=== PATIENT | female | born 1950 | race Caucasian/White ===

== ENCOUNTER 2022-12-08 09:01 | Emergency (ER) | payer OTHER ==
[~2022-12-08] VITALS: Ht 157.5 cm; Wt 76.9 kg
[2022-12-08] MEDS ORDERED: MORPHINE SULFATE 4 MG/ML SYR/VIAL IV ONE (09:30)
[2022-12-08] MEDS ORDERED: SODIUM CHLORIDE 0.9% 1,000 ML IVB ONE (09:30)
[2022-12-08] MEDS ORDERED: ONDANSETRON HCL 4 MG/2 ML VIAL IV ONE (09:30)
[2022-12-08 09:51] LABS: Basophils # (auto) 0 10 ^3/uL (0-0.2); Basophils % (auto) 0.5 % (0.0-2.0); Eosinophils # (auto) 0.1 10 ^3/uL (0-0.8); Eosinophils % (auto) 0.8 % (0.0-7.0); Hematocrit 34.1 % (36.0-46.0); Hemoglobin 11.5 g/dL (12.2-16.2); Lymphocytes # (auto) 1.3 10 ^3/uL (0.4-5.4); Lymphocytes % (auto) 17.1 % (10.0-50.0); Mean Corpuscular Hgb Conc. 33.6 g/dL (32.0-36.0); Mean Corpuscular Volume 89.2 fL (80.0-100.0); Monocytes # (auto) 0.5 10 ^3/uL (0-1.3); Monocytes % (auto) 6.3 % (0.0-12.0); Neutrophils # (auto) 5.9 10 ^3/uL (1.6-8.6); Neutrophils % (auto) 75.3 % (37.0-80.0); Red Blood Cells 3.82 10^6/uL (4.0-5.20); Red Cell Distribution Width 12.9 % (11.8-14.3); White Blood Cell 7.9 10^3/uL (4.4-10.8)
[2022-12-08 10:05] LABS: Albumin 3.8 g/dL (3.4-5.0); Potassium 4.7 mmol/L (3.5-5.1)
[2022-12-08 10:06] LABS: Urine Bacteria NONE SEEN /hpf (None Seen); Urine Blood Negative /uL (Negative); Urine Specific Gravity 1.012 (1.001-1.035); Urine WBC <1 /hpf (0 - 5)
[2022-12-08 10:09] LABS: BUN/Creatinine Ratio 27.6 (10.0-20.0); Bilirubin, Total 0.5 mg/dL (0.2-1.0); Calcium 8.5 mg/dL (8.5-10.1); Total Protein 6.7 g/dL (6.4-8.2)
[2022-12-08] MEDS ORDERED: TRAM50TA2 PO (11:43)
[2022-12-08 11:50] VITALS: BP 182/75
== END 2022-12-08 12:09 | disposition home or self-care (01) ==
LOC: EDBD 09:01 → EDUNIT# 09:01 → ER 09:01
DX: N20.0 Calculus of kidney (principal); E11.9 Type 2 diabetes mellitus without complications; E78.5 Hyperlipidemia, unspecified; I10 Essential (primary) hypertension; Z90.710 Acquired absence of both cervix and uterus; Z88.1 Allergy status to other antibiotic agents; Z88.2 Allergy status to sulfonamides
CPT/HCPCS: 36415; 74176; 80053; 81001; 83690; 85025; 96361; 96374; 96375; 99285; J2270; J2405; J7030

== ENCOUNTER 2023-05-10 17:29 | Emergency (ER) | payer OTHER ==
[~2023-05-10] VITALS: Ht 154.9 cm; Wt 64.0 kg
[~2023-05-10 17:29] MED LIST: TRAM50TA2 PO
[2023-05-10 18:34] LABS: Basophils # (auto) 0.1 10 ^3/uL (0-0.2); Basophils % (auto) 0.9 % (0.0-2.0); Eosinophils # (auto) 0.2 10 ^3/uL (0-0.8); Eosinophils % (auto) 2.2 % (0.0-7.0); Hematocrit 33.4 % (36.0-46.0); Hemoglobin 11.2 g/dL (12.2-16.2); Lymphocytes # (auto) 1.6 10 ^3/uL (0.4-5.4); Lymphocytes % (auto) 18.4 % (10.0-50.0); Mean Corpuscular Hemoglobin 30.3 pg (28.0-32.0); Mean Corpuscular Hgb Conc. 33.4 g/dL (32.0-36.0); Mean Corpuscular Volume 90.8 fL (80.0-100.0); Monocytes # (auto) 0.7 10 ^3/uL (0-1.3); Neutrophils # (auto) 6.2 10 ^3/uL (1.6-8.6); Neutrophils % (auto) 70.5 % (37.0-80.0); Red Blood Cells 3.68 10^6/uL (4.0-5.20); Red Cell Distribution Width 12.8 % (11.8-14.3); White Blood Cell 8.8 10^3/uL (4.4-10.8)
[2023-05-10 18:39] LABS: Alanine Aminotransferase 25 U/L (7-40); Albumin 4.1 g/dL (3.2-4.8); Alkaline Phosphatase 167 U/L (46-116); Anion Gap 9 (5-15); Aspartate Aminotransferase 17 U/L (13-40); BUN/Creatinine Ratio 22.9 (10.0-20.0); Bilirubin, Total 0.4 mg/dL (0.2-1.0); Blood Urea Nitrogen 43 mg/dL (9-23); Calcium 9.1 mg/dL (8.5-10.1); Carbon Dioxide 26 mmol/L (20-30); Chloride 106 mmol/L (98-107); Glucose 286 mg/dL (74-106); Potassium 4.8 mmol/L (3.5-5.1); Sodium 141 mmol/L (136-145); Total Protein 6.5 g/dL (5.7-8.2)
[2023-05-10] MEDS ORDERED: LACT10SO3 PO (21:29)
[2023-05-10 21:47] VITALS: PULSE 73; RESP 18; TEMP 97.7; O2SAT 97
[2023-05-10 21:48] VITALS: BP 215/95
[2023-05-10] MEDS ORDERED: ATENOLOL 25 MG TAB PO ONE (22:15)
== END 2023-05-10 22:16 | disposition home or self-care (01) ==
LOC: ER 17:29
DX: M19.071 Primary osteoarthritis, right ankle and foot (principal); N20.0 Calculus of kidney; K59.00 Constipation, unspecified; I10 Essential (primary) hypertension; E11.9 Type 2 diabetes mellitus without complications; E78.5 Hyperlipidemia, unspecified; Z90.710 Acquired absence of both cervix and uterus; Z90.89 Acquired absence of other organs; Z79.899 Other long term (current) drug therapy; Z88.1 Allergy status to other antibiotic agents; Z88.2 Allergy status to sulfonamides; Z88.8 Allergy status to other drugs, medicaments and biological substances
CPT/HCPCS: 36415; 73630; 74176; 80053; 85025; 93005

== ENCOUNTER 2023-06-23 22:39 | Emergency (ER) | payer OTHER ==
[~2023-06-23] VITALS: Ht 154.9 cm; Wt 61.3 kg
[~2023-06-23 22:39] MED LIST changes: +LACT10SO3 PO
[2023-06-23] MEDS ORDERED: cloNIDine HCL 0.1 MG TAB PO ONE (23:15)
[2023-06-23] MEDS ORDERED: HYDROcodone-ACET 5/325MG TAB PO ONE (23:15)
[2023-06-23] MEDS ORDERED: ONDANSETRON ODT 4 MG TAB PO ONE (23:15)
[2023-06-23 23:27] LABS: Basophils # (auto) 0 10 ^3/uL (0-0.2); Basophils % (auto) 0.3 % (0.0-2.0); Eosinophils # (auto) 0 10 ^3/uL (0-0.8); Eosinophils % (auto) 0.2 % (0.0-7.0); Hematocrit 36.1 % (36.0-46.0); Hemoglobin 12.1 g/dL (12.2-16.2); Lymphocytes # (auto) 1.4 10 ^3/uL (0.4-5.4); Lymphocytes % (auto) 14.5 % (10.0-50.0); Mean Corpuscular Hemoglobin 30.3 pg (28.0-32.0); Mean Corpuscular Hgb Conc. 33.4 g/dL (32.0-36.0); Mean Corpuscular Volume 90.7 fL (80.0-100.0); Monocytes # (auto) 0.9 10 ^3/uL (0-1.3); Monocytes % (auto) 9.8 % (0.0-12.0); Neutrophils # (auto) 7.1 10 ^3/uL (1.6-8.6); Neutrophils % (auto) 75.2 % (37.0-80.0); Nucleated Red Blood Cells % 0.1 %; Red Blood Cells 3.99 10^6/uL (4.0-5.20); Red Cell Distribution Width 12.9 % (11.8-14.3); White Blood Cell 9.4 10^3/uL (4.4-10.8)
[2023-06-23 23:42] LABS: Alanine Aminotransferase 18 U/L (7-40); Albumin 4.4 g/dL (3.2-4.8); Alkaline Phosphatase 191 U/L (46-116); Anion Gap 10 (5-15); Aspartate Aminotransferase 20 U/L (13-40); BUN/Creatinine Ratio 19.9 (10.0-20.0); Bilirubin, Total 0.5 mg/dL (0.2-1.0); Blood Urea Nitrogen 31 mg/dL (9-23); Calcium 9.2 mg/dL (8.7-10.4); Carbon Dioxide 25 mmol/L (20-30); Chloride 101 mmol/L (98-107); Glucose 286 mg/dL (74-106); Potassium 4.1 mmol/L (3.5-5.1); Sodium 136 mmol/L (136-145)
[2023-06-24] MEDS ORDERED: INDOMETHACIN 25 MG CAP PO ONE (07:45)
[2023-06-24 08:44] VITALS: PULSE 71; RESP 16; O2SAT 95
[2023-06-24] MEDS ORDERED: HYDROcodone-ACET 10/325MG TAB PO ONE (09:00)
[2023-06-24] MEDS ORDERED: ONDANSETRON ODT 4 MG TAB PO ONE (09:15)
[2023-06-24] MEDS ORDERED: InsuLIN REG 1unit/0.01ml Soln (100units/ml) SC ONE ×2 (10:45→15:00)
[2023-06-24 18:50] VITALS: BP 113/56; PULSE 70; RESP 22; TEMP 98; O2SAT 94
== END 2023-06-24 20:00 | disposition home or self-care (01) ==
LOC: ER 22:39 → EDBD 22:39 → ER 06-24 20:00
DX: M10.9 Gout, unspecified (principal); I10 Essential (primary) hypertension; E78.5 Hyperlipidemia, unspecified; E11.9 Type 2 diabetes mellitus without complications; Z90.710 Acquired absence of both cervix and uterus; Z90.89 Acquired absence of other organs; Z79.899 Other long term (current) drug therapy; Z88.1 Allergy status to other antibiotic agents; Z88.2 Allergy status to sulfonamides; Z88.8 Allergy status to other drugs, medicaments and biological substances
CPT/HCPCS: 36415; 73562; 80053; 82962; 84550; 85025; 93005; 96372; 99285; J1815; Q0162

== ENCOUNTER 2024-06-02 11:07 | Inpatient (IN) | payer OTHER ==
[~2024-06-02] VITALS: Ht 152.4 cm; Wt 52.7 kg
[2024-06-02 11:23] VITALS: PULSE 99; RESP 18; O2SAT 95
--- NOTE | 2024-06-02 11:26 | ED.PDOC ---
GI ASSESSMENT HPI Comments 73y F who presents to the ED for chief complaint of abdominal pain. Pt states he has been having diarrhea for the past 2 weeks. Pt states she was seen at [facility], [place] this past , 3 days prior and states she was given anti-diarrhea meds and discharged. Pt states she is continuing diarrhea and called EMS. Pt states she is also having abdominal pain, with no associated exacerbating or relieving factors. Pt otherwise denies nausea, vomiting, fever, cough, chills, dysuria, chest pain or shortness of breath. Pt has noted stable vitals in the ED. Pt otherwise denies any other symptoms at this time. Chief Complaint: Abdominal Pain Time Seen by MD: 11:22 Primary Care Provider: DOES NOT KNOW Reviewed Notes: Medications, Allergies Allergies: Coded Allergies: Azithromycin (Verified Allergy, Unknown, 12/08/22) Lisinopril (Verified Allergy, Unknown, 12/08/22) Sulfa Antibiotics (Verified Allergy, Unknown, 12/08/22) Home Meds Active Scripts Lactulose (Lactulose) 10 Gm/15 Ml Sylwia, 10 GM PO BID PRN, #100 ML Prov:ALFREDO LASSITER 05/10/23 Tramadol Hcl (Tramadol Hcl) 50 Mg Tab, 50 MG PO Q6HP PRN for 5 Days, #20 TAB Prov:ANGELO VILLATORO MD 12/08/22 Information Source: Patient Mode of Arrival: EMS Brought in by: EMS Timing: Days, Weeks Duration: Since onset Prehospital treatment: None Quality: Aching Vomitus: None Stool: Moderate Severity: Moderate Recent: None Recent Hx of: None Pain Location: Diffuse Modifying Factors: Nothing Associated sign and symptoms: Diarrhea, Abdominal Pain Past Medical History PAST MEDICAL HISTORY: Arthritis, DM, Gout, High Lipids, HTN, Kidney Stones Surgical History: Hernia Repair, Hysterectomy, Tonsillectomy Surgical History (Other): R knee, L oophrectomy 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 Hx Family History Family History: Family hx of DM, Family hx of Cancer, Family hx of heart myriam Social History Smoker: Non-Smoker Alcohol: Denies ETOH Use Drugs: Denies Drug Use Lives In: Home Constitutional: denies: chills, diaphoresis, fatigue, fever, malaise, sweats, weakness, others EENTM: denies: blurred vision, double vision, ear bleeding, ear discharge, ear drainage, ear pain, ear ringing, eye pain, eye redness, hearing loss, mouth pain, mouth swelling, nasal discharge, nose bleeding, nose congestion, nose pa in, photophobia, tearing, throat pain, throat swelling, voice changes, others Respiratory: denies: cough, hemoptysis, orthopnea, SOB at rest, shortness of breath, SOB with excertion, stridor, wheezing, others Cardiovascular: denies: chest pain, dizzy spells, diaphoresis, Dyspnea on exertion, edema, irregular heart beat, left arm pain, lightheadedness, palpitations, PND, syncope, others Gastrointestinal: reports: abdominal pain, diarrhea; denies: abdomen distended, blood streaked bowels, constipated, dysphagia, difficulty swallowing, hematemesis, melena, nausea, poor appetite, poor fluid intake, rectal bleeding, rectal pain, vomiting, others Genitourinary: denies: abnormal vagina bleeding, burning, dyspareunia, dysuria, flank pain, frequency, hematuria, incontinence, pain, , vagina discharge, urgency, others Neurological: denies: dizziness, fainting, headache, left sided numbness, left sided weakness, numbness, paresthesia, pre-existing deficit, right sided numbness, right sided weakness, seizure, speech problems, tingling, tremors, weakness, others Musculoskeletal: denies: back pain, gout, joint pain, joint swelling, muscle pain, muscle stiffness, neck pain, others Integumetry: denies: bruises, change in color, change in hair/nails, dryness, laceration, lesions, lumps, rash, wounds, others Allergic/Immunocompromised: denies: Difficulty Healing, Frequent Infections, Hives, Itching, others Hematologic/Lymphatic: denies: anemia, blood clots, easy bleeding, easy bruising, swollen glands, others Endocrine: denies: excessive hunger, excessive sweating, excessive thirst, excessive urination, flushing, intolerance to cold, intolerance to heat, unexplained weight gain, unexplained weight loss, others Psychiatric: denies: anxiety, bipolar disorder, depression, hopeless, panic disorder, schizophrenia, sleepless, suicidal, others All Other Systems: Reviewed and Negative Physical Exam General Appearance: Mild Distress HEENT: Normal ENT Inspection, Pharynx Normal, TMs Normal Neck: Full Range of Motion, Non-Tender, Normal, Normal Inspection Respiratory: Chest Non-Tender, Lungs Clear, No Accessory Muscle Use, No Respiratory Distress, Normal Breath Sounds Cardiovascular: No Edema, No JVD, No Murmur, No Gallop, Normal Peripheral P ulses, Regular Rate/Rhythm Breast Exam: Deferred Gastrointestinal: No Organomegaly, Non Tender, No Pulsatile Mass, Normal Bowel Sounds, Soft Genitalia: Deferred Pelvic: Deferred Rectal: Deferred Extremities: No calf tenderness, Normal capillary refill, Normal inspection, Normal range of motion, Non-tender, No pedal edema Musculoskeletal : Apperance: Normal Neurologic: Alert, web methods developer II-XII nml as Tested, No Motor Deficits, Normal Affect, Normal Mood, No Sensory Deficits Cerebellar Function: Normal Reflexes: Normal Skin: Dry, Normal Color, Warm Lymphatic: No Adenopathy Was a procedure done? Was a procedure done?: No GI differential Dx Differential Diagnosis: Diverticular disease, Gastritis/PUD, Gastroenteritis, GI hemorrhage, Inflammatory BD, Pancreatitis, Trauma intraabdominal, Dehydration, Electrolyte Imbalance, Food Poisoning, Bacterial, Viral X-Ray, Labs, Meds, VS Vital Signs Date Time Temp Pulse Resp B/P (MAP) Pulse Ox O2 Delivery O2 Flow Rate FiO2 06/02/24 11:36 99 18 102/62 06/02/24 11:23 98.2 99 18 102/62 (75) 95 98.2 06/02/24 11:23 99 18 95 Room Air* 0 21 06/02/24 11:12 98.0 91 16 123/80 (94) 97 Lab Test 06/02/24 11:46 06/02/24 11:40 Range/Units White Blood Count 8.2 4.4-10.8 10^3/uL Red Blood Count 4.13 4.0-5.20 10^6/uL Hemoglobin 12.2 12.2-16.2 g/dL Hematocrit 36.8 36.0-46.0 % Mean Corpuscular Volume 89.1 80.0-100.0 fL Mean Corpuscular Hemoglobin 29.6 28.0-32.0 pg Mean Corpuscular Hemoglobin Concent 33.2 32.0-36.0 g/dL Red Cell Distribution Width 14.5 H 11.8-14.3 % Platelet Count 402 140-450 10^3/uL Mean Platelet Volume 7.6 6.9-10.8 fL Neutrophils (%) (Auto) 66.8 37.0-80.0 % Lymphocytes (%) (Auto) 20.7 10.0-50.0 % Monocytes (%) (Auto) 8.0 0.0-12.0 % Eosinophils (%) (Auto) 3.4 0.0-7.0 % Basophils (%) (Auto) 1.1 0.0-2.0 % Neutrophils # (Auto) 5.5 1.6-8.6 10 ^3/uL Lymphocytes # (Auto) 1.7 0.4-5.4 10 ^3/uL Monocytes # (Auto) 0.7 0-1.3 10 ^3/uL Eosinophils # (Auto) 0.3 0-0.8 10 ^3/uL Basophils # (Auto) 0.1 0-0.2 10 ^3/uL Nucleated Red Blood Cells 0.1 % Sodium Level 138 136-145 mmol/L Potassium Level 4.8 3.5-5.1 mmol/L Chloride Level 105 98-107 mmol/L Carbon Dioxide Level 24 20-31 mmol/L Anion Gap 9 5-15 Blood Urea Nitrogen 28 H 9-23 mg/dL Creatinine 1.58 H 0.550-1.02 mg/dL Glomerular Filtration Rate Calc 34 >90 mL/min BUN/Creatinine Ratio 17.7 10.0-20.0 Serum Glucose 172 H 74-106 mg/dL Calcium Level 11.3 H 8.7-10.4 mg/dL Total Bilirubin 0.5 0.2-1.0 mg/dL Aspartate Amino Transferase (AST) 17 13-40 U/L Alanine Aminotransferase (ALT) 11 7-40 U/L Alkaline Phosphatase 118 H 46-116 U/L Total Protein 7.2 5.7-8.2 g/dL Albumin 4.4 3.2-4.8 g/dL Urine Color Yellow Yellow Urine Clarity Turbid H Clear Urine pH 6.5 5.0-9.0 Urine Specific Theodore 1.014 1.001-1.035 Urine Protein 1+ H Negative Urine Ketones Negative Negative Urine Blood Negative Negative /uL Urine Nitrite Negative Negative Urine Bilirubin Negative Negative Urine Urobilinogen Normal Negative mg/dL Urine Leukocyte Esterase 1+ Negative /uL Urine RBC 2 0 - 4 /hpf Urine WBC 9 0 - 5 /hpf Urine Squamous Epithelial Cells Few <5 /hpf Urine Bacteria Few H None Seen /hpf Urine Hyaline Casts Few 0 - 2 /lpf Urine Mucus Few None Seen Urine Glucose Normal Normal mg/dL Current Medications Medications (Trade) Dose Ordered Sig/Jacquelyn Route Start Time Stop Time Status Last Admin Morphine Sulfate 2 mg ONCE ONCE IV 06/02/24 11:15 06/02/24 11:16 DC 06/02/24 11:36 Ondansetron HCl (Zofran) 4 mg ONCE ONCE IV 06/02/24 11:15 06/02/24 11:16 DC 06/02/24 11:36 PROCEDURE(s): ABPL - CT AB PEL WO CON-NO ORAL OR IV IMPRESSION: 1. Acute colitis of the sigmoid colon. 2. Nonobstructing left nephrolithiasis. The patient was being started on Flagyl IV piggyback The patient was given morphine 2 mg IV push The patient was given Zofran 4 mg IV push The urine test is positive for UTI The CBC and chemistry panel are within normal limits except for a BUN of 28 and a creatinine of 1.58 The patient is being admitted to the hospitalist Images Reviewed?: Images reviewed and evaluated by me Time of 1ST Reevaluation: 12:00 Reevaluation 1ST: Unchanged Patient Education/Counseling: Diagnosis, Treatment, Prognosis Family Education/Counseling: No Family Present Departure 1 Departure Time of Disposition: 13:08 Impression: Primary Impression: Diarrhea Qualified Codes: R19.7 - Diarrhea, unspecified Additional Impressions: Intractable abdominal pain Colitis Disposition: ADMITTED INPATIENT Admit to: Med Surg Condition: Fair Critical Care Note Critical Care Time?: No Stability Stability form required: Yes Unstable for transfer: ED Physician Assesment (Clinical assesment) Heart Score Heart Score: Heart Score Response (Comments) Value History N/A 0 EKG N/A 0 Age N/A 0 Risk Factors N/A 0 Troponin N/A 0 Total 0 I personally scribed for ANGELO VILLATORO MD ([email or web address]) on 06/02/24 at 11:26. Electronically submitted by Nevin Rodriguez ([email or web address]). I personally scribed for ANGELO VILLATORO MD ([email or web address]) on 06/02/24 at 12:47. Electronically submitted by Nevin Rodriguez ([email or web address]). ANGELO VILLATORO MD Jun 02, 2024 11:26
[2024-06-02] MEDS: ONDANSETRON HCL 4 MG/2 ML VIAL IV ONE (11:36)
[2024-06-02] MEDS: MORPHINE SULFATE INJ 2 MG/ml SYRG IV ONE (11:36)
[2024-06-02 11:55] LABS: Basophils # (auto) 0.1 10 ^3/uL (0-0.2); Basophils % (auto) 1.1 % (0.0-2.0); Eosinophils # (auto) 0.3 10 ^3/uL (0-0.8); Eosinophils % (auto) 3.4 % (0.0-7.0); Hematocrit 36.8 % (36.0-46.0); Hemoglobin 12.2 g/dL (12.2-16.2); Lymphocytes # (auto) 1.7 10 ^3/uL (0.4-5.4); Lymphocytes % (auto) 20.7 % (10.0-50.0); Mean Corpuscular Hemoglobin 29.6 pg (28.0-32.0); Mean Corpuscular Hgb Conc. 33.2 g/dL (32.0-36.0); Mean Corpuscular Volume 89.1 fL (80.0-100.0); Monocytes # (auto) 0.7 10 ^3/uL (0-1.3); Neutrophils # (auto) 5.5 10 ^3/uL (1.6-8.6); Neutrophils % (auto) 66.8 % (37.0-80.0); Nucleated Red Blood Cells % 0.1 %; Platelet Count (auto) 402 10^3/uL (140-450); Red Blood Cells 4.13 10^6/uL (4.0-5.20); Red Cell Distribution Width 14.5 % (11.8-14.3); White Blood Cell 8.2 10^3/uL (4.4-10.8)
[2024-06-02 12:07] LABS: Urine Bacteria FEW /hpf (None Seen); Urine Blood Negative /uL (Negative); Urine Clarity Turbid (Clear); Urine Color Yellow (Yellow); Urine Hyaline Cast FEW /lpf (0 - 2); Urine Mucus FEW (None Seen); Urine Protein, UAD 1+ (Negative); Urine Specific Gravity 1.014 (1.001-1.035); Urine Urobilinogen Normal (Negative); Urine WBC 9 /hpf (0 - 5); Urine pH 6.5 (5.0-9.0)
[2024-06-02 12:26] LABS: Alanine Aminotransferase 11 U/L (7-40); Albumin 4.4 g/dL (3.2-4.8); Alkaline Phosphatase 118 U/L (46-116); Anion Gap 9 (5-15); Aspartate Aminotransferase 17 U/L (13-40); BUN/Creatinine Ratio 17.7 (10.0-20.0); Bilirubin, Total 0.5 mg/dL (0.2-1.0); Blood Urea Nitrogen 28 mg/dL (9-23); Calcium 11.3 mg/dL (8.7-10.4); Carbon Dioxide 24 mmol/L (20-31); Chloride 105 mmol/L (98-107); Glucose 172 mg/dL (74-106); Potassium 4.8 mmol/L (3.5-5.1); Sodium 138 mmol/L (136-145); Total Protein 7.2 g/dL (5.7-8.2)
--- NOTE | 2024-06-02 12:43 | DVH ---
Exam: CT CT AB PEL WO CON-NO ORAL OR IV History: Pain Comparison Study: CT scan of the abdomen pelvis performed on 05/10/2023. TECHNIQUE: Multidetector CT of the abdomen and pelvis was performed from lung bases to ischial tubero sities. Imaging was performed without IV contrast using axial images. Coronal and sagittal reformats were obtained from the axial data set by the technologist. Radiation Dose Information: CT Dose: CTDI volume is 8.32 mGy. Dose-length product is 415.14 mGy*cm FINDINGS: Evaluation of solid organs is limited due to lack of intravenous contrast use. Findings: The lower portion of the abdomen / pelvis is excluded from the [id number] on the axial images. Lung Bases: Bibasilar atelectasis. No acute or significant lung base finding. Normal heart size. No pleural or pericardial effusion. Liver: The liver is normal in size. No focal lesions. Gallbladder and Biliary Tree: Gallbladder is unremarkable. No biliary ductal dilatation. Spleen: Unremarkable Pancreas: The pancreas is grossly normal in appearance. Adrenal Glands: Unremarkable Kidneys: Punctate nonobstructing left nephrolithiasis. Bilateral renal cysts. No hydronephrosis. GI Tract: Small hiatal hernia. The small bowel is normal in caliber. There is wall thickening of the descending and sigmoid colon liquid stool, suspicious for colitis. No evidence of acute appendicitis. Peritoneal cavity: No pneumoperitoneum. No ascites. Lymphadenopathy: No mesenteric, retroperitoneal or periportal lymphadenopathy. Abdominal Wall and Mesentery: Unremarkable. Vasculature: The visualized abdominal aorta is normal in size and caliber. Evaluation of abdominal a nd pelvic vessels is limited due to lack of intravenous contrast. There are atherosclerotic calcifica tions in the aorta. Pelvic Organs: Multiple calcified masses in the uterus consistent with fibroids. Urinary Bladder: Grossly unremarkable for degree of distention. Musculoskeletal: No aggressive focal bony lesions, acute fractures or dislocation. S shaped scoliosis . Bilateral hip osteoarthritis. Soft tissues: Unremarkable IMPRESSION: 1. Acute colitis of the sigmoid colon. 2. Nonobstructing left nephrolithiasis. Radiation optimization: All CT scans at this facility use at least one of these dose optimization deepak hniques: automated exposure control mA and/or kV adjustment per patient size (includes targeted exam s where dose is matched to clinical indication) or iterative reconstruction.
[2024-06-02] MEDS: metroNIDAZOLE 500MG/100ML 100 ML IV ONE (13:25)
[2024-06-02 13:45] VITALS: PULSE 98; RESP 20; O2SAT 98
[2024-06-02] MEDS ORDERED: DEXTROSE (50%) 50ML SYRG IV PRN ×2 (18:00→18:15)
[2024-06-02] MEDS ORDERED: VALS1TAB59 PO (18:05)
[2024-06-02] MEDS ORDERED: GABA-1250 PO (18:05)
[2024-06-02] MEDS ORDERED: SIMV20TA20 PO (18:05)
[2024-06-02] MEDS ORDERED: hydrALAZINE HCL 20 MG/ML VL IV PRN (18:15)
[2024-06-02 18:16] LABS: Triglycerides 230 mg/dL (< 150)
[2024-06-02 18:17] LABS: LDL Cholesterol 129 mg/dL (< 100)
[2024-06-02 18:18] LABS: Cholesterol 219 mg/dL (< 200); HDL Cholesterol 48 mg/dL (40-59)
--- NOTE | 2024-06-02 18:21 | DVHHP2 ---
History of Present Illness Reason for Visit: Abdominal pain History of Present Illness This 73-year-old female presents in the ED with a chief complaint of abdominal pain. The patient reports abdominal pain associated with diarrhea for the past two weeks. The patient states she was seen [facility] ER a few days ago and was given antidiarrhea medication. The patient reports despite of antidiarrheal medication continue to have diarrhea for which prompted her to visit the emergency department again. The patient denies nausea, vomiting, or melena. Past medical history of hyperlipidemia, hypertension, diabetes type 2, arthritis, and gout. Past Medical History As stated in HPI Past Surgical History Right knee, left oophorectomy Hysterectomy Hernia Tonsillectomy Family History Reviewed, non-contributory to the management of this case. Past Social History The patient lives at home, denies smoking, alcohol or illicit drugs abuse. Review of Systems Constitutional: Yes: Malaise; No: Fever, Chills, Sweats, Weakness, Other ENT: No: Ear pain, Ear discharge, Nose pain, Nose discharge, Nose congestion, Mouth pain, Mouth swelling, Throat pain, Throat swelling, Other Respiratory: No: Cough, Dry, Shortness of breath, SOB with excertion, Wheezing, Hemoptysis, Pleuritic Pain, Sputum, Wheezing, Other Cardiovascular: No: Chest Pain, Palpitations, Orthopnea, Paroxysmal Noc. Dyspnea, Edema, Lt Headedness, Other Gastrointestinal: Abdominal Pain, Diarrhea; No: Nausea, Vomiting, Constipation, Melena, Hematochezia, Other Genitourinary: No Dysuria, No Frequency, No Incontinence, No Hematuria, No Retention, No Other Musculoskeletal: No: other, neck pain, shoulder pain, arm pain, back pain, hand pain, leg pain, foot pain Skin: No: Rash, Lesions, Jaundice, Bruising, Other Neurological: No: Weakness, Numbness, Incoordination, Change in speech, Confusion, Seizures, Other Allergies: Coded Allergies: Azithromycin (Verified Allergy, Unknown, 12/08/22) Lisinopril (Verified Allergy, Unknown, 12/08/22) Sulfa Antibiotics (Verified Allergy, Unknown, 12/08/22) Exam Vital Signs Vital Signs Date Time Temp Pulse Resp B/P (MAP) Pulse Ox O2 Delivery O2 Flow Rate FiO2 06/02/24 16:40 100 23 114/64 (81) 96 06/02/24 14:35 98.4 98.4 06/02/24 13:45 Nasal Cannula* 2 28 General Appearance: Alert, Oriented X3, Cooperative, mild distress HEENT: Atraumatic, PERRLA, EOMI Respiratory: Clear to auscultation, Normal air movement Cardiovascular: Regular rate, Normal S1, Normal S2 Abdominal: Normal bowel sounds, Soft, Other (Generalized tenderness in palpation) Extremities: No clubbing, No cyanosis, No edema, Normal pulses Skin: No rashes, No breakdown, No significant lesion Neuro: Normal gait, Normal speech, Normal tone Psych/Mental Status: Mental status NL Labs/Xrays Labs Test 06/02/24 11:46 06/02/24 11:40 Range/Units White Blood Count 8.2 4.4-10.8 10^3/uL Red Blood Count 4.13 4.0-5.20 10^6/uL Hemoglobin 12.2 12.2-16.2 g/dL Hematocrit 36.8 36.0-46.0 % Mean Corpuscular Volume 89.1 80.0-100.0 fL Mean Corpuscular Hemoglobin 29.6 28.0-32.0 pg Mean Corpuscular Hemoglobin Concent 33.2 32.0-36.0 g/dL Red Cell Distribution Width 14.5 H 11.8-14.3 % Platelet Count 402 140-450 10^3/uL Mean Platelet Volume 7.6 6.9-10.8 fL Neutrophils (%) (Auto) 66.8 37.0-80.0 % Lymphocytes (%) (Auto) 20.7 10.0-50.0 % Monocytes (%) (Auto) 8.0 0.0-12.0 % Eosinophils (%) (Auto) 3.4 0.0-7.0 % Basophils (%) (Auto) 1.1 0.0-2.0 % Neutrophils # (Auto) 5.5 1.6-8.6 10 ^3/uL Lymphocytes # (Auto) 1.7 0.4-5.4 10 ^3/uL Monocytes # (Auto) 0.7 0-1.3 10 ^3/uL Eosinophils # (Auto) 0.3 0-0.8 10 ^3/uL Basophils # (Auto) 0.1 0-0.2 10 ^3/uL Nucleated Red Blood Cells 0.1 % Sodium Level 138 136-145 mmol/L Potassium Level 4.8 3.5-5.1 mmol/L Chloride Level 105 98-107 mmol/L Carbon Dioxide Level 24 20-31 mmol/L Anion Gap 9 5-15 Blood Urea Nitrogen 28 H 9-23 mg/dL Creatinine 1.58 H 0.550-1.02 mg/dL Glomerular Filtration Rate Calc 34 >90 mL/min BUN/Creatinine Ratio 17.7 10.0-20.0 Serum Glucose 172 H 74-106 mg/dL Calcium Level 11.3 H 8.7-10.4 mg/dL Total Bilirubin 0.5 0.2-1.0 mg/dL Aspartate Amino Transferase (AST) 17 13-40 U/L Alanine Aminotransferase (ALT) 11 7-40 U/L Alkaline Phosphatase 118 H 46-116 U/L Total Protein 7.2 5.7-8.2 g/dL Albumin 4.4 3.2-4.8 g/dL Urine Color Yellow Yellow Urine Clarity Turbid H Clear Urine pH 6.5 5.0-9.0 Urine Specific [place] 1.014 1.001-1.035 Urine Protein 1+ H Negative Urine Ketones Negative Negative Urine Blood Negative Negative /uL Urine Nitrite Negative Negative Urine Bilirubin Negative Negative Urine Urobilinogen Normal Negative mg/dL Urine Leukocyte Esterase 1+ Negative /uL Urine RBC 2 0 - 4 /hpf Urine WBC 9 0 - 5 /hpf Urine Squamous Epithelial Cells Few <5 /hpf Urine Bacteria Few H None Seen /hpf Urine Hyaline Casts Few 0 - 2 /lpf Urine Mucus Few None Seen Urine Glucose Normal Normal mg/dL PROCEDURE(s): ABPL - CT AB PEL WO CON-NO ORAL OR IV REASON: pain ORDER NUMBER(s): [id number], ACCESSION NUMBER(s): [id number] Exam: CT CT AB PEL WO CON-NO ORAL OR IV History: Pain Comparison Study: CT scan of the abdomen pelvis performed on 05/10/2023. TECHNIQUE: Multidetector CT of the abdomen and pelvis was performed from lung bases to ischial tuberosities. Imaging was performed without IV contrast using axial images. Coronal and sagittal reformats were obtained from the axial data set by the technologist. Radiation Dose Information: CT Dose: CTDI volume is 8.32 mGy. Dose-length product is 415.14 mGy*cm FINDINGS: Evaluation of solid organs is limited due to lack of intravenous contrast use. Findings: The lower portion of the abdomen / pelvis is excluded from the [id number] on the axial images. Lung Bases: Bibasilar atelectasis. No acute or significant lung base finding. Normal heart size. No pleural or pericardial effusion. Liver: The liver is normal in size. No focal lesions. Gallbladder and Biliary Tree: Gallbladder is unremarkable. No biliary ductal dilatation. Spleen: Unremarkable Pancreas: The pancreas is grossly normal in appearance. Adrenal Glands: Unremarkable Kidneys: Punctate nonobstructing left nephrolithiasis. Bilateral renal cysts. No hydronephrosis. GI Tract: Small hiatal hernia. The small bowel is normal in caliber. There is wall thickening of the descending and sigmoid colon liquid stool, suspicious for colitis. No evidence of acute appendicitis. Peritoneal cavity: No pneumoperitoneum. No ascites. Lymphadenopathy: No mesenteric, retroperitoneal or periportal lymphadenopathy. Abdominal Wall and Mesentery: Unremarkable. Vasculature: The visualized abdominal aorta is normal in size and caliber. Evaluation of abdominal and pelvic vessels is limited due to lack of intravenous contrast. There are atherosclerotic calcifications in the aorta. Pelvic Organs: Multiple calcified masses in the uterus consistent with fibroids. Urinary Bladder: Grossly unremarkable for degree of distention. Musculoskeletal: No aggressive focal bony lesions, acute fractures or dislocation. S shaped scoliosis. Bilateral hip osteoarthritis. Soft tissues: Unremarkable IMPRESSION: 1. Acute colitis of the sigmoid colon. 2. Nonobstructing left nephrolithiasis. Assessment/Plan Assessment/Plan # acute colitis # acute abdominal pain # diarrhea Admit to medical unit CT of abdomen and pelvis reviewed Metronidazole IV PPI Stool culture, C-diff # LISA, likely VMN, dehydration IV fluid Consider Nephrology consult if does not improve # hypertension Valsartan Hydralazine as needed # diabetes type 2 # peripheral neuropathy ISS Gabapentin Check A1c # hyperlipidemia Statins Check lipid panel Medical plan discussed with patient and RN Plan discussed with: Patient Date of Service: Jun 02, 2024 Billing Provider: DAVID LOZOYA Common Visit Codes: 19434-[id number] INP/OBS CARE (HIGH) DAVID LOZOYA Jun 02, 2024 18:21
[2024-06-02] MEDS: PANTOPRAZOLE 40 MG/10 ML VIAL INJ IV ONE (19:09)
[2024-06-02 20:01] VITALS: RESP 16
[2024-06-02] MEDS: SODIUM CHLORIDE 0.9% 1,000 ML IV SCH (20:36)
[2024-06-02 20:46] VITALS: BP 136/66; PULSE 93; RESP 16; TEMP 98.8; O2SAT 96
[2024-06-02 21:46] VITALS: BP 136/66; PULSE 93; RESP 18; TEMP 98.8; O2SAT 95
[2024-06-02] MEDS: InsuLIN REG 1unit/0.01ml Soln (100units/ml) SC SCH ×2 (22:00)
[2024-06-02] MEDS: ACCU-CHEK COMFORT CURVE STRIP VI SCH ×2 (22:00)
[2024-06-02] MEDS: ATORVASTATIN 20 MG TAB PO SCH (22:04)
[2024-06-02] MEDS: GABAPENTIN 300 MG CAP PO SCH (22:04)
[2024-06-02] MEDS: metroNIDAZOLE 500MG/100ML 100 ML IV SCH (22:09)
[2024-06-03 01:00] VITALS: BP 144/87; PULSE 101; RESP 16; TEMP 98.1; O2SAT 98
[2024-06-03] MEDS ORDERED: AMLO1TAB22 PO (01:19)
[2024-06-03] MEDS ORDERED: INSU75IN2 SC (01:19)
[2024-06-03 05:00] VITALS: BP 105/57; PULSE 81; RESP 17; TEMP 97.1; O2SAT 92
[2024-06-03] MEDS: HYDROcodone-ACET 5/325MG TAB PO ONE (05:39)
[2024-06-03 07:39] LABS: Basophils # (auto) 0.1 10 ^3/uL (0-0.2); Basophils % (auto) 0.9 % (0.0-2.0); Eosinophils # (auto) 0.2 10 ^3/uL (0-0.8); Eosinophils % (auto) 2.8 % (0.0-7.0); Hematocrit 29.6 % (36.0-46.0); Hemoglobin 9.9 g/dL (12.2-16.2); Lymphocytes # (auto) 1.4 10 ^3/uL (0.4-5.4); Lymphocytes % (auto) 22.9 % (10.0-50.0); Mean Corpuscular Hemoglobin 29.7 pg (28.0-32.0); Mean Corpuscular Hgb Conc. 33.4 g/dL (32.0-36.0); Mean Corpuscular Volume 89.1 fL (80.0-100.0); Monocytes # (auto) 0.7 10 ^3/uL (0-1.3); Monocytes % (auto) 11.8 % (0.0-12.0); Neutrophils # (auto) 3.7 10 ^3/uL (1.6-8.6); Neutrophils % (auto) 61.6 % (37.0-80.0); Platelet Count (auto) 248 10^3/uL (140-450); Red Blood Cells 3.32 10^6/uL (4.0-5.20); Red Cell Distribution Width 14.6 % (11.8-14.3)
[2024-06-03 07:53] LABS: Alkaline Phosphatase 87 U/L (46-116); Anion Gap 7 (5-15); Carbon Dioxide 26 mmol/L (20-31); Chloride 106 mmol/L (98-107); Glucose 109 mg/dL (74-106); Potassium 4.4 mmol/L (3.5-5.1); Sodium 139 mmol/L (136-145)
[2024-06-03 07:54] LABS: Albumin 3.4 g/dL (3.2-4.8); Aspartate Aminotransferase 12 U/L (13-40); Bilirubin, Total 0.4 mg/dL (0.2-1.0); Total Protein 5.5 g/dL (5.7-8.2)
[2024-06-03 08:00] VITALS: BP 150/63; PULSE 74; RESP 18; RESP 20; TEMP 97.5; O2SAT 91
[2024-06-03 08:03] LABS: Alanine Aminotransferase < 9 U/L (7-40); Blood Urea Nitrogen 38 mg/dL (9-23)
[2024-06-03] MEDS: LOSARTAN POTASSIUM 50 MG TAB PO SCH (08:57)
[2024-06-03] MEDS: PANTOPRAZOLE 40 MG/10 ML VIAL INJ IV SCH (08:57)
[2024-06-03] MEDS: ENOXAPARIN SOD 30 MG/0.3 ML SYRINGE SC SCH (08:58)
[2024-06-03 12:00] VITALS: BP 140/53; PULSE 68; RESP 17; TEMP 97.8; O2SAT 91
--- NOTE | 2024-06-03 12:59 | DVHPN2 ---
Reviewed: Care Plan, H&P, Labs, Medications, Previous Orders, Radiology Changes from previous H/P or p: No Changes ENT: No Ear pain, No Ear discharge, No Nose pain, No Nose discharge, No Nose congestion, No Mouth pain, No Mouth swelling, No Throat pain, No Throat swelling, No Other Cardiovascular: No Chest Pain, No Palpitations, No Orthopnea, No Paroxysmal Noc. Dyspnea, No Edema, No Lt Headedness, No Other Respiratory: No Cough, No Dry, No Shortness of breath, No SOB with excertion, No Wheezing, No Hemoptysis, No Pleuritic Pain, No Sputum, No Other Gastrointestinal: No Nausea, No Vomiting; Abdominal Pain, Diarrhea; No Constipation, No Melena, No Hematochezia, No Other Genitourinary: No Dysuria, No Frequency, No Incontinence, No Hematuria, No Retention, No Other Musculoskeletal: No other, No neck pain, No shoulder pain, No arm pain, No back pain, No hand pain, No leg pain, No foot pain Skin: No Rash, No Lesions, No Jaundice, No Bruising, No Other Objective Vitals Vital Signs Date Time Temp Pulse Resp B/P (MAP) Pulse Ox O2 Delivery O2 Flow Rate FiO2 06/03/24 08:57 150/63 06/03/24 08:00 97.5 74 20 91 97.5 06/03/24 08:00 Room Air* 0 21 Intake/Output Intake and Output 06/03/24 07:00 Intake Total 2153 ml Balance 2153 ml Intake Oral 500 ml IV Total 1653 ml # Voids 3 Medications Current Medications Medications Dose Ordered Sig/Jacquelyn Route Start Time Stop Time Status Last Admin Dose Admin Sodium Chloride 1,000 ml @ 75 mls/hr [id number] IV 06/02/24 18:00 06/02/24 22:09 75 MLS/HR Ondansetron HCl 4 mg Q4HP PRN IV 06/02/24 18:00 Enoxaparin Sodium 30 mg DAILY SC 06/03/24 10:00 06/03/24 08:58 30 MG Metronidazole 100 ml @ 100 mls/hr Q8HR IV 06/02/24 22:00 06/03/24 05:39 100 MLS/HR Diagnostic Test (Pha) 1 strip ACHS 06/02/24 22:00 06/03/24 11:30 1 STRIP Dextrose 50 ml UD PRN IV 06/02/24 18:00 Losartan Potassium 100 mg DAILY PO 06/03/24 10:00 06/03/24 08:57 100 MG Pantoprazole Sodium 40 mg DAILY IV 06/03/24 10:00 06/03/24 08:57 40 MG Gabapentin 300 mg HS PO 06/02/24 22:00 06/02/24 22:04 300 MG Insulin Human Regular ACHS SC 06/02/24 22:00 06/03/24 12:25 4 UNITS Atorvastatin Calcium 20 mg HS PO 06/02/24 22:00 06/02/24 22:04 20 MG Hydralazine HCl 10 mg Q6HP PRN IV 06/02/24 18:15 Laboratory Results Laboratory Tests 06/03/24 06:43 Chemistry Test 06/03/24 06:43 Albumin 3.4 g/dL (3.2-4.8) Calcium Level 10.0 mg/dL (8.7-10.4) Total Protein 5.5 g/dL (5.7-8.2) L LFT Test 06/03/24 06:43 Alanine Aminotransferase (ALT) < 9 U/L (7-40) Alkaline Phosphatase 87 U/L (46-116) Aspartate Amino Transferase (AST) 12 U/L (13-40) L Total Bilirubin 0.4 mg/dL (0.2-1.0) Urinalysis Test 06/02/24 11:40 Urine Color Yellow (Yellow) Urine Clarity Turbid (Clear) H Urine pH 6.5 (5.0-9.0) Urine Specific [place] 1.014 (1.001-1.035) Urine Protein 1+ (Negative) H Urine Ketones Negative (Negative) Urine Blood Negative /uL (Negative) Urine Nitrite Negative (Negative) Urine Bilirubin Negative (Negative) Urine Urobilinogen Normal mg/dL (Negative) Urine Leukocyte Esterase 1+ /uL (Negative) Urine RBC 2 /hpf (0 - 4) Urine WBC 9 /hpf (0 - 5) Urine Squamous Epithelial Cells Few /hpf (<5) Urine Bacteria Few /hpf (None Seen) H Urine Hyaline Casts Few /lpf (0 - 2) Urine Mucus Few (None Seen) Urine Glucose Normal mg/dL (Normal) Microbiology Microbiology Date/Time Source Procedure Growth Status 06/02/24 18:53 Stool Stool Culture - Preliminary Resulted 06/02/24 18:53 Stool Shiga Toxin I & II Pending Resulted 06/02/24 18:53 Stool Clostridium difficile Toxin Assay Pending Resulted Labs and/or images reviewed: Labs reviewed by me, Image(s) reviewed by me Assessment/Plan Assessment/Plan Acute abdominal pain Acute sigmoid colitis: Rocephin Flagyl Diarrhea LISA Hypertension Hypercholesterolemia: Lipitor Uncontrolled diabetes Hyperkalemia Acute dehydration: IV fluids Recently seen in the ER [facility] for diarrhea Stool for C diff pending Plan discussed with: Patient Date of Service: Jun 03, 2024 Billing Provider: MILDRED DÍAZ MD Common Visit Codes: [id number] INP/OBS CARE(HIGH) MILDRED DÍAZ MD Jun 03, 2024 12:59
[2024-06-03] MEDS: cefTRIAXone 1GM/50ML D5W 50 ML IV ONE (14:53)
[2024-06-03 16:00] VITALS: BP 121/59; PULSE 71; RESP 18; TEMP 98.2; O2SAT 98
[2024-06-03 21:00] VITALS: BP 133/50; PULSE 73; RESP 18; TEMP 98; O2SAT 94
[2024-06-03] MEDS: ONDANSETRON HCL 4 MG/2 ML VIAL IV PRN (21:30)
[2024-06-04 01:00] VITALS: BP 100/43; PULSE 71; RESP 17; TEMP 98; O2SAT 93
[2024-06-04 05:00] VITALS: BP 118/56; PULSE 74; RESP 17; TEMP 98; O2SAT 97
[2024-06-04] MEDS: cefTRIAXone 1GM/50ML D5W 50 ML IV SCH (08:37)
[2024-06-04 09:00] VITALS: BP 131/59; PULSE 87; RESP 18; TEMP 98.1; O2SAT 98
--- NOTE | 2024-06-04 11:43 | DVHPN2 ---
Reviewed: Care Plan, H&P, Labs, Medications, Previous Orders, Radiology Changes from previous H/P or p: No Changes ENT: No Ear pain, No Ear discharge, No Nose pain, No Nose discharge, No Nose congestion, No Mouth pain, No Mouth swelling, No Throat pain, No Throat swelling, No Other Cardiovascular: No Chest Pain, No Palpitations, No Orthopnea, No Paroxysmal Noc. Dyspnea, No Edema, No Lt Headedness, No Other Respiratory: No Cough, No Dry, No Shortness of breath, No SOB with excertion, No Wheezing, No Hemoptysis, No Pleuritic Pain, No Sputum, No Other Gastrointestinal: No Nausea, No Vomiting; Abdominal Pain, Diarrhea; No Constipation, No Melena, No Hematochezia, No Other Genitourinary: No Dysuria, No Frequency, No Incontinence, No Hematuria, No Retention, No Other Musculoskeletal: No other, No neck pain, No shoulder pain, No arm pain, No back pain, No hand pain, No leg pain, No foot pain Skin: No Rash, No Lesions, No Jaundice, No Bruising, No Other Objective Vitals Vital Signs Date Time Temp Pulse Resp B/P (MAP) Pulse Ox O2 Delivery O2 Flow Rate FiO2 06/04/24 09:00 98.1 87 18 131/59 (83) 98 98.1 06/04/24 08:00 Room Air* 0 21 Intake/Output Intake and Output 06/04/24 07:00 Intake Total 1200 ml Balance 1200 ml Intake Oral 1100 ml IV Total 100 ml # Voids 6 Medications Current Medications Medications Dose Ordered Sig/Jacquelyn Route Start Time Stop Time Status Last Admin Dose Admin Sodium Chloride 1,000 ml @ 75 mls/hr [id number] IV 06/02/24 18:00 06/04/24 08:38 75 MLS/HR Ondansetron HCl 4 mg Q4HP PRN IV 06/02/24 18:00 06/03/24 21:30 4 MG Enoxaparin Sodium 30 mg DAILY SC 06/03/24 10:00 06/04/24 08:38 30 MG Metronidazole 100 ml @ 100 mls/hr Q8HR IV 06/02/24 22:00 06/04/24 05:54 100 MLS/HR Diagnostic Test (Pha) 1 strip ACHS 06/02/24 22:00 06/04/24 11:37 1 STRIP Dextrose 50 ml UD PRN IV 06/02/24 18:00 Losartan Potassium 100 mg DAILY PO 06/03/24 10:00 06/03/24 08:57 100 MG Pantoprazole Sodium 40 mg DAILY IV 06/03/24 10:00 06/04/24 08:38 40 MG Gabapentin 300 mg HS PO 06/02/24 22:00 06/03/24 21:20 300 MG Insulin Human Regular ACHS SC 06/02/24 22:00 06/04/24 11:37 4 UNITS Atorvastatin Calcium 20 mg HS PO 06/02/24 22:00 06/03/24 21:20 20 MG Hydralazine HCl 10 mg Q6HP PRN IV 06/02/24 18:15 Ceftriaxone Sodium 50 ml @ 100 mls/hr DAILY@09 IV 06/04/24 09:00 06/04/24 08:37 100 MLS/HR Acetaminophen/ Hydrocodone Bitart 1 tab Q6HPRN PRN PO 06/03/24 20:30 Laboratory Results Laboratory Tests 06/03/24 06:43 Urinalysis Test 06/02/24 11:40 Urine Color Yellow (Yellow) Urine Clarity Turbid (Clear) H Urine pH 6.5 (5.0-9.0) Urine Specific [place] 1.014 (1.001-1.035) Urine Protein 1+ (Negative) H Urine Ketones Negative (Negative) Urine Blood Negative /uL (Negative) Urine Nitrite Negative (Negative) Urine Bilirubin Negative (Negative) Urine Urobilinogen Normal mg/dL (Negative) Urine Leukocyte Esterase 1+ /uL (Negative) Urine RBC 2 /hpf (0 - 4) Urine WBC 9 /hpf (0 - 5) Urine Squamous Epithelial Cells Few /hpf (<5) Urine Bacteria Few /hpf (None Seen) H Urine Hyaline Casts Few /lpf (0 - 2) Urine Mucus Few (None Seen) Urine Glucose Normal mg/dL (Normal) Microbiology Microbiology Date/Time Source Procedure Growth Status 06/02/24 18:53 Stool Stool Culture - Preliminary Resulted 06/02/24 18:53 Stool Shiga Toxin I & II - Final Resulted 06/02/24 18:53 Stool Clostridium difficile Toxin Assay Pending Resulted Labs and/or images reviewed: Labs reviewed by me, Image(s) reviewed by me Assessment/Plan Assessment/Plan Acute abdominal pain Acute sigmoid colitis: Rocephin Flagyl Diarrhea LISA Hypertension Hypercholesterolemia: Lipitor Uncontrolled diabetes Hyperkalemia Acute dehydration: IV fluids Recently seen in the ER [facility] for diarrhea Stool for C diff pending Plan discussed with: Patient My Orders Orders - MILDRED DÍAZ MD Procedure Category Date Status Time Ceftriaxone 1gm/50ml PHA 06/04/24 In Process D5w (Rocephin) 09:00 Date of Service: Jun 04, 2024 Billing Provider: MILDRED DÍAZ MD Common Visit Codes: [id number] INP/OBS CARE(HIGH) MILDRED DÍAZ MD Jun 04, 2024 11:43
[2024-06-04] MEDS: MAALOX PLUS or MAALOX 30 ML PO PRN (12:16)
[2024-06-04 13:00] VITALS: BP 133/65; PULSE 92; RESP 18; TEMP 98.2; O2SAT 98
[2024-06-04 16:31] VITALS: BP 155/77; PULSE 90; RESP 17; TEMP 98.5; O2SAT 96
[2024-06-04] MEDS: VANCOMYCIN HCL 125 MG CAP PO SCH (18:09)
--- NOTE | 2024-06-04 18:20 | MEDREC ---
[facility] ASP Intervention Section I [facility] ASP Intervention: Review courses of therapy (PLEASE CONSIDER REVIEWING COURSE OF THERAPY ACCORDING TO CULTURE RESULTS (C.DIFF POSITIVE)) YESSI GOODSON PHARMACIST Jun 04, 2024 18:20
[2024-06-04] MEDS: HYDROcodone-ACET 5/325MG TAB PO PRN (20:40)
[2024-06-04 21:00] VITALS: BP 114/73; PULSE 93; RESP 18; TEMP 99.1; O2SAT 99
[2024-06-05] VITALS (8 sets, daily range): BP systolic 105–164; BP diastolic 51–72; PULSE 71–86; RESP 16–18; TEMP 97.3–99.4; O2SAT 93–99
[2024-06-05] MEDS: traMADol HCL 50 MG TAB PO ONE (06:55)
--- NOTE | 2024-06-05 09:24 | DVHPN2 ---
Reviewed: Care Plan, H&P, Labs, Medications, Previous Orders, Radiology Changes from previous H/P or p: No Changes ENT: No Ear pain, No Ear discharge, No Nose pain, No Nose discharge, No Nose congestion, No Mouth pain, No Mouth swelling, No Throat pain, No Throat swelling, No Other Cardiovascular: No Chest Pain, No Palpitations, No Orthopnea, No Paroxysmal Noc. Dyspnea, No Edema, No Lt Headedness, No Other Respiratory: No Cough, No Dry, No Shortness of breath, No SOB with excertion, No Wheezing, No Hemoptysis, No Pleuritic Pain, No Sputum, No Other Gastrointestinal: No Nausea, No Vomiting; Abdominal Pain, Diarrhea; No Constipation, No Melena, No Hematochezia, No Other Genitourinary: No Dysuria, No Frequency, No Incontinence, No Hematuria, No Retention, No Other Musculoskeletal: No other, No neck pain, No shoulder pain, No arm pain, No back pain, No hand pain, No leg pain, No foot pain Skin: No Rash, No Lesions, No Jaundice, No Bruising, No Other Objective Vitals Vital Signs Date Time Temp Pulse Resp B/P (MAP) Pulse Ox O2 Delivery O2 Flow Rate FiO2 06/05/24 05:00 97.3 76 18 164/72 (102) 99 97.3 06/04/24 20:00 Room Air* 0 21 Intake/Output Intake and Output 06/05/24 07:00 Intake Total 880 ml Balance 880 ml Intake Oral 880 ml # Voids 10 # Bowel Movements 4 Medications Current Medications Medications Dose Ordered Sig/Jacquelyn Route Start Time Stop Time Status Last Admin Dose Admin Sodium Chloride 1,000 ml @ 75 mls/hr [id number] IV 06/02/24 18:00 06/04/24 08:38 75 MLS/HR Ondansetron HCl 4 mg Q4HP PRN IV 06/02/24 18:00 06/03/24 21:30 4 MG Enoxaparin Sodium 30 mg DAILY SC 06/03/24 10:00 06/04/24 08:38 30 MG Metronidazole 100 ml @ 100 mls/hr Q8HR IV 06/02/24 22:00 06/05/24 06:55 100 MLS/HR Diagnostic Test (Pha) 1 strip ACHS 06/02/24 22:00 06/05/24 06:55 1 STRIP Dextrose 50 ml UD PRN IV 06/02/24 18:00 Losartan Potassium 100 mg DAILY PO 06/03/24 10:00 06/03/24 08:57 100 MG Pantoprazole Sodium 40 mg DAILY IV 06/03/24 10:00 06/04/24 08:38 40 MG Gabapentin 300 mg HS PO 06/02/24 22:00 06/04/24 22:38 300 MG Insulin Human Regular ACHS SC 06/02/24 22:00 06/04/24 22:33 4 UNITS Atorvastatin Calcium 20 mg HS PO 06/02/24 22:00 06/04/24 22:38 20 MG Hydralazine HCl 10 mg Q6HP PRN IV 06/02/24 18:15 Ceftriaxone Sodium 50 ml @ 100 mls/hr DAILY@09 IV 06/04/24 09:00 06/04/24 08:37 100 MLS/HR Acetaminophen/ Hydrocodone Bitart 1 tab Q6HPRN PRN PO 06/03/24 20:30 06/04/24 20:40 1 TAB Al Hydrox/Mg Hydrox/Simethicone 10 ml Q8HP PRN PO 06/04/24 12:00 06/05/24 06:54 10 ML Vancomycin HCl 125 mg QID PO 06/04/24 18:00 06/05/24 06:54 125 MG Laboratory Results Laboratory Tests 06/03/24 06:43 Urinalysis Test 06/02/24 11:40 Urine Color Yellow (Yellow) Urine Clarity Turbid (Clear) H Urine pH 6.5 (5.0-9.0) Urine Specific [place] 1.014 (1.001-1.035) Urine Protein 1+ (Negative) H Urine Ketones Negative (Negative) Urine Blood Negative /uL (Negative) Urine Nitrite Negative (Negative) Urine Bilirubin Negative (Negative) Urine Urobilinogen Normal mg/dL (Negative) Urine Leukocyte Esterase 1+ /uL (Negative) Urine RBC 2 /hpf (0 - 4) Urine WBC 9 /hpf (0 - 5) Urine Squamous Epithelial Cells Few /hpf (<5) Urine Bacteria Few /hpf (None Seen) H Urine Hyaline Casts Few /lpf (0 - 2) Urine Mucus Few (None Seen) Urine Glucose Normal mg/dL (Normal) Microbiology Microbiology Date/Time Source Procedure Growth Status 06/02/24 18:53 Stool Stool Culture - Preliminary Resulted 06/02/24 18:53 Stool Shiga Toxin I & II - Final Resulted 06/02/24 18:53 Stool Clostridium difficile Toxin Assay - Final Resulted Labs and/or images reviewed: Labs reviewed by me, Image(s) reviewed by me Assessment/Plan Assessment/Plan Acute abdominal pain Acute sigmoid colitis: Rocephin Flagyl C diff colitis IV Flagyl p.o. vancomycin Diarrhea LISA Hypertension Hypercholesterolemia: Lipitor Uncontrolled diabetes Hyperkalemia Acute dehydration: IV fluids Recently seen in the ER [facility] for diarrhea Plan discussed with: Patient My Orders Orders - MILDRED DÍAZ MD Procedure Category Date Status Time Alum & Mag PHA 06/04/24 In Process Hydrox-Simethicone 12:00 Vancomycin Po PHA 06/04/24 In Process 18:00 Date of Service: Jun 05, 2024 Billing Provider: MILDRED DÍAZ MD Common Visit Codes: [id number] INP/OBS CARE(HIGH) MILDRED DÍAZ MD Jun 05, 2024 09:24
[2024-06-06] VITALS (8 sets, daily range): BP systolic 105–154; BP diastolic 56–71; PULSE 70–78; RESP 16–20; TEMP 98–98.7; O2SAT 95–99
--- NOTE | 2024-06-06 09:48 | DVHPN2 ---
Reviewed: Care Plan, H&P, Labs, Medications, Previous Orders, Radiology Changes from previous H/P or p: No Changes ENT: No Ear pain, No Ear discharge, No Nose pain, No Nose discharge, No Nose congestion, No Mouth pain, No Mouth swelling, No Throat pain, No Throat swelling, No Other Cardiovascular: No Chest Pain, No Palpitations, No Orthopnea, No Paroxysmal Noc. Dyspnea, No Edema, No Lt Headedness, No Other Respiratory: No Cough, No Dry, No Shortness of breath, No SOB with excertion, No Wheezing, No Hemoptysis, No Pleuritic Pain, No Sputum, No Other Gastrointestinal: No Nausea, No Vomiting; Abdominal Pain, Diarrhea; No Constipation, No Melena, No Hematochezia, No Other Genitourinary: No Dysuria, No Frequency, No Incontinence, No Hematuria, No Retention, No Other Musculoskeletal: No other, No neck pain, No shoulder pain, No arm pain, No back pain, No hand pain, No leg pain, No foot pain Skin: No Rash, No Lesions, No Jaundice, No Bruising, No Other Objective Vitals Vital Signs Date Time Temp Pulse Resp B/P (MAP) Pulse Ox O2 Delivery O2 Flow Rate FiO2 06/06/24 08:51 154/71 06/06/24 08:29 98.0 78 20 98 98.0 06/06/24 08:00 Room Air* 0 21 Intake/Output Intake and Output 06/06/24 07:00 Intake Total 1025 ml Balance 1025 ml Intake Oral 775 ml IV Total 250 ml # Voids 8 # Bowel Movements 5 Medications Current Medications Medications Dose Ordered Sig/Jacquelyn Route Start Time Stop Time Status Last Admin Dose Admin Sodium Chloride 1,000 ml @ 75 mls/hr [id number] IV 06/02/24 18:00 06/05/24 16:56 75 MLS/HR Ondansetron HCl 4 mg Q4HP PRN IV 06/02/24 18:00 06/03/24 21:30 4 MG Enoxaparin Sodium 30 mg DAILY SC 06/03/24 10:00 06/06/24 08:51 30 MG Metronidazole 100 ml @ 100 mls/hr Q8HR IV 06/02/24 22:00 06/06/24 05:59 100 MLS/HR Diagnostic Test (Pha) 1 strip ACHS 06/02/24 22:00 06/06/24 06:07 1 STRIP Dextrose 50 ml UD PRN IV 06/02/24 18:00 Losartan Potassium 100 mg DAILY PO 06/03/24 10:00 06/06/24 08:51 100 MG Pantoprazole Sodium 40 mg DAILY IV 06/03/24 10:00 06/05/24 10:17 40 MG Gabapentin 300 mg HS PO 06/02/24 22:00 06/05/24 22:10 300 MG Insulin Human Regular ACHS SC 06/02/24 22:00 06/06/24 06:07 2 UNITS Atorvastatin Calcium 20 mg HS PO 06/02/24 22:00 06/05/24 22:10 20 MG Hydralazine HCl 10 mg Q6HP PRN IV 06/02/24 18:15 Ceftriaxone Sodium 50 ml @ 100 mls/hr DAILY@09 IV 06/04/24 09:00 06/05/24 10:03 100 MLS/HR Acetaminophen/ Hydrocodone Bitart 1 tab Q6HPRN PRN PO 06/03/24 20:30 06/06/24 04:18 1 TAB Al Hydrox/Mg Hydrox/Simethicone 10 ml Q8HP PRN PO 06/04/24 12:00 06/05/24 22:11 10 ML Vancomycin HCl 125 mg QID PO 06/04/24 18:00 06/05/24 22:10 125 MG Laboratory Results Laboratory Tests 06/03/24 06:43 Urinalysis Test 06/02/24 11:40 Urine Color Yellow (Yellow) Urine Clarity Turbid (Clear) H Urine pH 6.5 (5.0-9.0) Urine Specific [place] 1.014 (1.001-1.035) Urine Protein 1+ (Negative) H Urine Ketones Negative (Negative) Urine Blood Negative /uL (Negative) Urine Nitrite Negative (Negative) Urine Bilirubin Negative (Negative) Urine Urobilinogen Normal mg/dL (Negative) Urine Leukocyte Esterase 1+ /uL (Negative) Urine RBC 2 /hpf (0 - 4) Urine WBC 9 /hpf (0 - 5) Urine Squamous Epithelial Cells Few /hpf (<5) Urine Bacteria Few /hpf (None Seen) H Urine Hyaline Casts Few /lpf (0 - 2) Urine Mucus Few (None Seen) Urine Glucose Normal mg/dL (Normal) Microbiology Microbiology Date/Time Source Procedure Growth Status 06/02/24 18:53 Stool Stool Culture - Final Complete 06/02/24 18:53 Stool Shiga Toxin I & II - Final Complete 06/02/24 18:53 Stool Clostridium difficile Toxin Assay - Final Complete Labs and/or images reviewed: Labs reviewed by me, Image(s) reviewed by me Assessment/Plan Assessment/Plan Acute abdominal pain Acute sigmoid colitis: Rocephin Flagyl C diff colitis IV Flagyl p.o. vancomycin, GI consult for Dr. Holly House Acute Diarrhea Acute dehydration: LR 125 mL per hour LISA Hypertension Hypercholesterolemia: Lipitor Uncontrolled diabetes Hyperkalemia Acute dehydration: IV fluids Recently seen in the ER [facility] for diarrhea Plan discussed with: Patient My Orders Orders - MILDRED DÍAZ MD Procedure Category Date Status Time Lactated Ringers Lr PHA 06/06/24 Transmitted 09:45 Date of Service: Jun 06, 2024 Billing Provider: MILDRED DÍAZ MD Common Visit Codes: [id number] INP/OBS CARE(HIGH) MILDRED DÍAZ MD Jun 06, 2024 09:48
[2024-06-06] MEDS: LACTATED RINGER'S 1,000 ML IV SCH (12:44)
--- NOTE | 2024-06-06 13:09 | DVHINCON2 ---
GI Consult Consult Note GI consult note Date of Consultation: 06/06/2024 Chief Complaint: C diff colitis Referring Physician: Dr. Ashley Díaz H&P: 73-year-old female admitted with complains of abdominal pain and diarrhea Patient has symptoms similar to this on and off for the last two months, was hospitalized for this also Patient complains of loose stool, 5-6 episodes every day No melena or red blood in stool Patient has completed Course of Flagyl recently also Per patient is status post colonoscopy one month ago, status post EGD two months ago Patient has history of dysphagia Past Medical History: Arthritis, DM, Gout, High Lipids, HTN, Kidney Stones Past Surgical History: Hernia Repair, Hysterectomy, Tonsillectomy R knee, L oophrectomy Social History: NO smoking, drinking ETOH and use of illegal drugs. Family History: DM,cancer,heart disease Review of Systems: Constitutional: no fever, chill, weight loss HEENT: no eye pain, no hearing loss, no oral lesion, no scleral icterus Heart: no chest pain, no chest pressure Lung: no cough, no dyspnea with exertion Abdomen: see HPI Physical exam: General: NAD, AAOX3 Chest: lung green clear to auscultation. Heart: RRR, no murmur Abdomen: non-distended, no tenderness to palpation, +BS Labs: Urinalysis Test 06/02/24 11:40 Urine Color Yellow (Yellow) Urine Clarity Turbid (Clear) H Urine pH 6.5 (5.0-9.0) Urine Specific [place] 1.014 (1.001-1.035) Urine Protein 1+ (Negative) H Urine Ketones Negative (Negative) Urine Blood Negative /uL (Negative) Urine Nitrite Negative (Negative) Urine Bilirubin Negative (Negative) Urine Urobilinogen Normal mg/dL (Negative) Urine Leukocyte Esterase 1+ /uL (Negative) Urine RBC 2 /hpf (0 - 4) Urine WBC 9 /hpf (0 - 5) Urine Squamous Epithelial Cells Few /hpf (<5) Urine Bacteria Few /hpf (None Seen) H Urine Hyaline Casts Few /lpf (0 - 2) Urine Mucus Few (None Seen) Urine Glucose Normal mg/dL (Normal) Microbiology Microbiology Date/Time Source Procedure Growth Status 06/02/24 18:53 Stool Stool Culture - Final Complete 06/02/24 18:53 Stool Shiga Toxin I & II - Final Complete 06/02/24 18:53 Stool Clostridium difficile Toxin Assay - Final Complete Imaging: CT abdomen pelvis IMPRESSION: 1. Acute colitis of the sigmoid colon. 2. Nonobstructing left nephrolithiasis. Assessment: C diff colitis Abdominal pain improving Plan: Discussed with Dr. Harsh Correa 500 mg t.i.d. p.o. Hold ceftriaxone Questran and Florastor If patient's symptoms not improving consider treatment with Dificid Diet as tolerated We will continue to monitor this patient Thank you for this consult Date of Service: Jun 06, 2024 Billing Provider: JARED DÍAZ Common Visit Codes: CONSULT ONLY Consultation Codes: [id number] CONSULT <60MIN JARED DÍAZ Jun 06, 2024 13:09
[2024-06-06] MEDS: metroNIDAZOLE 500 MG TAB PO SCH (14:13)
[2024-06-07] VITALS (7 sets, daily range): BP systolic 103–184; BP diastolic 63–82; PULSE 74–80; RESP 14–19; TEMP 97.7–98.8; O2SAT 94–100
[2024-06-07] MEDS: MELATONIN 5 MG TAB PO ONE (00:55)
--- NOTE | 2024-06-07 09:59 | DVHPN2 ---
Reviewed: Care Plan, H&P, Labs, Medications, Previous Orders, Radiology Changes from previous H/P or p: No Changes ENT: No Ear pain, No Ear discharge, No Nose pain, No Nose discharge, No Nose congestion, No Mouth pain, No Mouth swelling, No Throat pain, No Throat swelling, No Other Cardiovascular: No Chest Pain, No Palpitations, No Orthopnea, No Paroxysmal Noc. Dyspnea, No Edema, No Lt Headedness, No Other Respiratory: No Cough, No Dry, No Shortness of breath, No SOB with excertion, No Wheezing, No Hemoptysis, No Pleuritic Pain, No Sputum, No Other Gastrointestinal: No Nausea, No Vomiting; Abdominal Pain, Diarrhea; No Constipation, No Melena, No Hematochezia, No Other Genitourinary: No Dysuria, No Frequency, No Incontinence, No Hematuria, No Retention, No Other Musculoskeletal: No other, No neck pain, No shoulder pain, No arm pain, No back pain, No hand pain, No leg pain, No foot pain Skin: No Rash, No Lesions, No Jaundice, No Bruising, No Other Objective Vitals Vital Signs Date Time Temp Pulse Resp B/P (MAP) Pulse Ox O2 Delivery O2 Flow Rate FiO2 06/07/24 05:00 98.0 74 14 103/66 (78) 97 98.0 06/06/24 20:00 Room Air* 0 21 Intake/Output Intake and Output 06/07/24 07:00 Intake Total 1400 ml Output Total 10 ml Balance 1390 ml Intake Oral 600 ml IV Total 800 ml Output Urine Total 10 ml # Voids 4 # Bowel Movements 6 Medications Current Medications Medications Dose Ordered Sig/Jacquelyn Route Start Time Stop Time Status Last Admin Dose Admin Ondansetron HCl 4 mg Q4HP PRN IV 06/02/24 18:00 06/03/24 21:30 4 MG Enoxaparin Sodium 30 mg DAILY SC 06/03/24 10:00 06/06/24 08:51 30 MG Diagnostic Test (Pha) 1 strip ACHS 06/02/24 22:00 06/07/24 06:22 1 STRIP Dextrose 50 ml UD PRN IV 06/02/24 18:00 Losartan Potassium 100 mg DAILY PO 06/03/24 10:00 06/06/24 08:51 100 MG Pantoprazole Sodium 40 mg DAILY IV 06/03/24 10:00 06/06/24 11:41 40 MG Gabapentin 300 mg HS PO 06/02/24 22:00 06/05/24 22:10 300 MG Insulin Human Regular ACHS SC 06/02/24 22:00 06/06/24 21:20 3 UNITS Atorvastatin Calcium 20 mg HS PO 06/02/24 22:00 06/06/24 21:15 20 MG Hydralazine HCl 10 mg Q6HP PRN IV 06/02/24 18:15 Acetaminophen/ Hydrocodone Bitart 1 tab Q6HPRN PRN PO 06/03/24 20:30 06/06/24 23:27 1 TAB Al Hydrox/Mg Hydrox/Simethicone 10 ml Q8HP PRN PO 06/04/24 12:00 06/06/24 21:23 10 ML Vancomycin HCl 125 mg QID PO 06/04/24 18:00 06/07/24 06:00 125 MG Lactated Ringer's 1,000 ml @ 125 mls/hr Q8H IV 06/06/24 09:45 06/07/24 06:05 125 MLS/HR Metronidazole 500 mg Q8HR PO 06/06/24 14:00 06/07/24 06:00 500 MG Cholestyramine Resin 4 gm DAILY@11 PO 06/07/24 11:00 Saccharomyces Boulardii 250 mg DAILY PO 06/07/24 10:00 Laboratory Results Laboratory Tests 06/03/24 06:43 Urinalysis Test 06/02/24 11:40 Urine Color Yellow (Yellow) Urine Clarity Turbid (Clear) H Urine pH 6.5 (5.0-9.0) Urine Specific [place] 1.014 (1.001-1.035) Urine Protein 1+ (Negative) H Urine Ketones Negative (Negative) Urine Blood Negative /uL (Negative) Urine Nitrite Negative (Negative) Urine Bilirubin Negative (Negative) Urine Urobilinogen Normal mg/dL (Negative) Urine Leukocyte Esterase 1+ /uL (Negative) Urine RBC 2 /hpf (0 - 4) Urine WBC 9 /hpf (0 - 5) Urine Squamous Epithelial Cells Few /hpf (<5) Urine Bacteria Few /hpf (None Seen) H Urine Hyaline Casts Few /lpf (0 - 2) Urine Mucus Few (None Seen) Urine Glucose Normal mg/dL (Normal) Microbiology Microbiology Date/Time Source Procedure Growth Status 06/02/24 18:53 Stool Stool Culture - Final Complete 06/02/24 18:53 Stool Shiga Toxin I & II - Final Complete 06/02/24 18:53 Stool Clostridium difficile Toxin Assay - Final Complete Labs and/or images reviewed: Labs reviewed by me, Image(s) reviewed by me Assessment/Plan Assessment/Plan Acute abdominal pain Acute sigmoid colitis: C diff colitis p.o. Flagyl p.o. vancomycin, Florastor, cholestyramine GI consult by Dr. Holly Houes appreciated Acute Diarrhea Acute dehydration: LR 125 mL per hour LISA Hypertension Hypercholesterolemia: Lipitor Uncontrolled diabetes Hyperkalemia Acute dehydration: IV fluids Recently seen in the ER [facility] for diarrhea Patient feels slightly better today with less diarrhea Plan discussed with: Patient Date of Service: Jun 07, 2024 Billing Provider: MILDRED DÍAZ MD Common Visit Codes: [id number] INP/OBS CARE(HIGH) MILDRED DÍAZ MD Jun 07, 2024 09:59
[2024-06-07] MEDS: FLORASTOR (S. BOULARDII) 250 MG CAP PO SCH (10:11)
[2024-06-07] MEDS: CHOLESTYRAMINE 4 GM POWDER PO SCH (11:00)
--- NOTE | 2024-06-07 17:46 | DVHPN2 ---
Progress Note - Dictate Date Seen: Jun 07, 2024 Medical Necessity Reason Pt with a Central, PICC or Fol: No Subjective Patient seen at bedside Diarrhea is improving and stools are getting softer No abdominal pain Patient's blood pressure was running high She is requesting melatonin to help her sleep vital signs Vital Sign Date Time Temp Pulse Resp B/P (MAP) Pulse Ox O2 Delivery O2 Flow Rate FiO2 06/07/24 16:55 98.8 75 18 184/82 (116) 100 98.8 06/07/24 08:00 Room Air* 0 21 Total Intake and Output 06/06/24 06/06/24 06/07/24 15:00 23:00 07:00 Intake Total 50 ml 400 ml 950 ml Output Total 10 ml Balance 50 ml 390 ml 950 ml medications Current Medications Medications Dose Ordered Sig/Jacquelyn Route Start Time Stop Time Status Last Admin Dose Admin Ondansetron HCl 4 mg Q4HP PRN IV 06/02/24 18:00 06/03/24 21:30 4 MG Enoxaparin Sodium 30 mg DAILY SC 06/03/24 10:00 06/07/24 10:11 30 MG Diagnostic Test (Pha) 1 strip ACHS 06/02/24 22:00 06/07/24 17:00 1 STRIP Dextrose 50 ml UD PRN IV 06/02/24 18:00 Losartan Potassium 100 mg DAILY PO 06/03/24 10:00 06/07/24 10:12 100 MG Pantoprazole Sodium 40 mg DAILY IV 06/03/24 10:00 06/07/24 10:10 40 MG Gabapentin 300 mg HS PO 06/02/24 22:00 06/05/24 22:10 300 MG Insulin Human Regular ACHS SC 06/02/24 22:00 06/07/24 17:31 2 UNITS Atorvastatin Calcium 20 mg HS PO 06/02/24 22:00 06/06/24 21:15 20 MG Hydralazine HCl 10 mg Q6HP PRN IV 06/02/24 18:15 Acetaminophen/ Hydrocodone Bitart 1 tab Q6HPRN PRN PO 06/03/24 20:30 06/06/24 23:27 1 TAB Al Hydrox/Mg Hydrox/Simethicone 10 ml Q8HP PRN PO 06/04/24 12:00 06/06/24 21:23 10 ML Vancomycin HCl 125 mg QID PO 06/04/24 18:00 06/07/24 17:39 125 MG Lactated Ringer's 1,000 ml @ 125 mls/hr Q8H IV 06/06/24 09:45 06/07/24 17:39 125 MLS/HR Metronidazole 500 mg Q8HR PO 06/06/24 14:00 06/07/24 14:46 500 MG Cholestyramine Resin 4 gm DAILY@11 PO 06/07/24 11:00 06/07/24 11:00 4 GM Saccharomyces Boulardii 250 mg DAILY PO 06/07/24 10:00 06/07/24 10:11 250 MG Melatonin 5 mg HS PRN PO 06/07/24 17:30 UNV objective General: NAD, AAOX3 Chest: lung green clear to auscultation. Heart: RRR, no murmur Abdomen: non-distended, no tenderness to palpation, +BS laboratory and microbiology Laboratory Tests 06/03/24 06:43 Test 06/03/24 06:43 Range/Units Serum Glucose 109 H 74-106 mg/dL Problems(with codes): (1) Intractable abdominal pain (2) Diarrhea (3) Colitis Prognosis Plan Advance diet as tolerated Continue oral Flagyl and Florastor Melatonin 5 mg p.o. q.h.s. as needed as needed Patient was given my contact information She will follow up with me as an outpatient upon discharge Dietary Evaluation Review Comments: 1) Consider a Soft Renal Specific K2,low phos,[place],2gNa,60g Pro/CCHO 45g diet 2) Continue current plan of care Expected Outcomes/Goals: 1) Pt labs to improve 2) F/U in 3-5 days Plan discussed with: Patient, Other (Nurse) KADE PUENTE MD Jun 07, 2024 17:46
[2024-06-07] MEDS: MELATONIN 5 MG TAB PO PRN (18:26)
[2024-06-08] VITALS (7 sets, daily range): BP systolic 113–160; BP diastolic 59–90; PULSE 61–85; RESP 15–18; TEMP 97.7–98.6; O2SAT 95–100
[2024-06-08] MEDS ORDERED: LIDOCAINE 2% TOPICAL JELLY 5 ML URJT TOP PRN (08:15)
--- NOTE | 2024-06-08 08:51 | DVHPN2 ---
Reviewed: Care Plan, H&P, Labs, Medications, Previous Orders, Radiology Changes from previous H/P or p: No Changes ENT: No Ear pain, No Ear discharge, No Nose pain, No Nose discharge, No Nose congestion, No Mouth pain, No Mouth swelling, No Throat pain, No Throat swelling, No Other Cardiovascular: No Chest Pain, No Palpitations, No Orthopnea, No Paroxysmal Noc. Dyspnea, No Edema, No Lt Headedness, No Other Respiratory: No Cough, No Dry, No Shortness of breath, No SOB with excertion, No Wheezing, No Hemoptysis, No Pleuritic Pain, No Sputum, No Other Gastrointestinal: No Nausea, No Vomiting; Abdominal Pain, Diarrhea; No Constipation, No Melena, No Hematochezia, No Other Genitourinary: No Dysuria, No Frequency, No Incontinence, No Hematuria, No Retention, No Other Musculoskeletal: No other, No neck pain, No shoulder pain, No arm pain, No back pain, No hand pain, No leg pain, No foot pain Skin: No Rash, No Lesions, No Jaundice, No Bruising, No Other Objective Vitals Vital Signs Date Time Temp Pulse Resp B/P (MAP) Pulse Ox O2 Delivery O2 Flow Rate FiO2 06/08/24 05:00 98.2 71 16 139/69 (92) 100 98.2 06/07/24 20:00 Room Air* 0 21 Intake/Output Intake and Output 06/08/24 07:00 Intake Total 2245 ml Balance 2245 ml Intake Oral 920 ml IV Total 1325 ml # Voids 18 # Bowel Movements 4 Medications Current Medications Medications Dose Ordered Sig/Jacquelyn Route Start Time Stop Time Status Last Admin Dose Admin Ondansetron HCl 4 mg Q4HP PRN IV 06/02/24 18:00 06/03/24 21:30 4 MG Enoxaparin Sodium 30 mg DAILY SC 06/03/24 10:00 06/07/24 10:11 30 MG Diagnostic Test (Pha) 1 strip ACHS 06/02/24 22:00 06/08/24 05:56 1 STRIP Dextrose 50 ml UD PRN IV 06/02/24 18:00 Losartan Potassium 100 mg DAILY PO 06/03/24 10:00 06/07/24 10:12 100 MG Pantoprazole Sodium 40 mg DAILY IV 06/03/24 10:00 06/07/24 10:10 40 MG Gabapentin 300 mg HS PO 06/02/24 22:00 06/05/24 22:10 300 MG Insulin Human Regular ACHS SC 06/02/24 22:00 06/07/24 22:02 3 UNITS Atorvastatin Calcium 20 mg HS PO 06/02/24 22:00 06/07/24 21:47 20 MG Hydralazine HCl 10 mg Q6HP PRN IV 06/02/24 18:15 Acetaminophen/ Hydrocodone Bitart 1 tab Q6HPRN PRN PO 06/03/24 20:30 06/08/24 02:27 1 TAB Al Hydrox/Mg Hydrox/Simethicone 10 ml Q8HP PRN PO 06/04/24 12:00 06/08/24 01:12 10 ML Vancomycin HCl 125 mg QID PO 06/04/24 18:00 06/08/24 05:28 125 MG Lactated Ringer's 1,000 ml @ 125 mls/hr Q8H IV 06/06/24 09:45 06/07/24 17:39 125 MLS/HR Metronidazole 500 mg Q8HR PO 06/06/24 14:00 06/08/24 05:28 500 MG Cholestyramine Resin 4 gm DAILY@11 PO 06/07/24 11:00 06/07/24 11:00 4 GM Saccharomyces Boulardii 250 mg DAILY PO 06/07/24 10:00 06/07/24 10:11 250 MG Melatonin 5 mg HS PRN PO 06/07/24 17:30 06/07/24 21:47 5 MG Lidocaine HCl 5 ml Q8HPRN PRN TOP 06/08/24 08:15 Laboratory Results Laboratory Tests 06/03/24 06:43 Urinalysis Test 06/02/24 11:40 Urine Color Yellow (Yellow) Urine Clarity Turbid (Clear) H Urine pH 6.5 (5.0-9.0) Urine Specific [place] 1.014 (1.001-1.035) Urine Protein 1+ (Negative) H Urine Ketones Negative (Negative) Urine Blood Negative /uL (Negative) Urine Nitrite Negative (Negative) Urine Bilirubin Negative (Negative) Urine Urobilinogen Normal mg/dL (Negative) Urine Leukocyte Esterase 1+ /uL (Negative) Urine RBC 2 /hpf (0 - 4) Urine WBC 9 /hpf (0 - 5) Urine Squamous Epithelial Cells Few /hpf (<5) Urine Bacteria Few /hpf (None Seen) H Urine Hyaline Casts Few /lpf (0 - 2) Urine Mucus Few (None Seen) Urine Glucose Normal mg/dL (Normal) Microbiology Microbiology Date/Time Source Procedure Growth Status 06/02/24 18:53 Stool Stool Culture - Final Complete 06/02/24 18:53 Stool Shiga Toxin I & II - Final Complete 06/02/24 18:53 Stool Clostridium difficile Toxin Assay - Final Complete Labs and/or images reviewed: Labs reviewed by me, Image(s) reviewed by me Assessment/Plan Assessment/Plan Acute abdominal pain Acute sigmoid colitis: C diff colitis p.o. Flagyl p.o. vancomycin, Florastor, cholestyramine GI consult by Dr. Holly House appreciated Acute Diarrhea Acute dehydration: LR 125 mL per hour LISA Hypertension Hypercholesterolemia: Lipitor Uncontrolled diabetes Hyperkalemia Insomnia: Melatonin Acute dehydration: IV fluids Recently seen in the ER [facility] for diarrhea Patient feels slightly better today with less diarrhea Plan discussed with: Patient My Orders Orders - MILDRED DÍAZ MD Procedure Category Date Status Time Lidocaine 2% Topical PHA 06/08/24 In Process Jelly (Lidocaine Hc 08:15 Stool Bacterial CATERINA 06/08/24 Uncollected Culture 08:37 Date of Service: Jun 08, 2024 Billing Provider: MILDRED DÍAZ MD Common Visit Codes: [id number] INP/OBS CARE(HIGH) MILDRED ÍDAZ MD Jun 08, 2024 08:50
[2024-06-08] MEDS: METOPROLOL TARTRATE 50 MG TAB PO SCH (10:03)
--- NOTE | 2024-06-08 18:04 | DVHPN2 ---
Progress Note - Dictate Date Seen: Jun 08, 2024 Medical Necessity Reason Pt with a Central, PICC or Fol: No Subjective Diarrhea is improving and stools are getting softer Still with 4-5 bowel movements a day Some abdominal pain this morning vital signs Vital Sign Date Time Temp Pulse Resp B/P (MAP) Pulse Ox O2 Delivery O2 Flow Rate FiO2 06/08/24 17:00 97.7 61 16 160/59 (92) 98 97.7 06/08/24 08:14 Room Air* 0 21 Total Intake and Output 06/07/24 06/07/24 06/08/24 15:00 23:00 07:00 Intake Total 1845 ml 400 ml Balance 1845 ml 400 ml medications Current Medications Medications Dose Ordered Sig/Jacquelyn Route Start Time Stop Time Status Last Admin Dose Admin Ondansetron HCl 4 mg Q4HP PRN IV 06/02/24 18:00 06/03/24 21:30 4 MG Enoxaparin Sodium 30 mg DAILY SC 06/03/24 10:00 06/08/24 09:42 30 MG Diagnostic Test (Pha) 1 strip ACHS 06/02/24 22:00 06/08/24 17:00 1 STRIP Dextrose 50 ml UD PRN IV 06/02/24 18:00 Losartan Potassium 100 mg DAILY PO 06/03/24 10:00 06/08/24 09:44 100 MG Pantoprazole Sodium 40 mg DAILY IV 06/03/24 10:00 06/08/24 09:42 40 MG Gabapentin 300 mg HS PO 06/02/24 22:00 06/05/24 22:10 300 MG Insulin Human Regular ACHS SC 06/02/24 22:00 06/08/24 17:00 2 UNITS Atorvastatin Calcium 20 mg HS PO 06/02/24 22:00 06/07/24 21:47 20 MG Hydralazine HCl 10 mg Q6HP PRN IV 06/02/24 18:15 Acetaminophen/ Hydrocodone Bitart 1 tab Q6HPRN PRN PO 06/03/24 20:30 06/08/24 11:07 1 TAB Al Hydrox/Mg Hydrox/Simethicone 10 ml Q8HP PRN PO 06/04/24 12:00 06/08/24 01:12 10 ML Vancomycin HCl 125 mg QID PO 06/04/24 18:00 06/08/24 16:51 125 MG Lactated Ringer's 1,000 ml @ 125 mls/hr Q8H IV 06/06/24 09:45 06/08/24 16:51 125 MLS/HR Metronidazole 500 mg Q8HR PO 06/06/24 14:00 06/08/24 13:50 500 MG Cholestyramine Resin 4 gm DAILY@11 PO 06/07/24 11:00 06/08/24 11:05 4 GM Saccharomyces Boulardii 250 mg DAILY PO 06/07/24 10:00 06/08/24 09:43 250 MG Melatonin 5 mg HS PRN PO 06/07/24 17:30 06/07/24 21:47 5 MG Lidocaine HCl 5 ml Q8HPRN PRN TOP 06/08/24 08:15 Metoprolol Tartrate 50 mg BID PO 06/08/24 10:00 06/08/24 10:03 50 MG objective General: NAD, AAOX3 Chest: lung green clear to auscultation. Heart: RRR, no murmur Abdomen: non-distended, no tenderness to palpation, +BS laboratory and microbiology Laboratory Tests 06/03/24 06:43 Test 06/03/24 06:43 Range/Units Serum Glucose 109 H 74-106 mg/dL Problems(with codes): (1) Intractable abdominal pain (2) Diarrhea (3) Colitis Prognosis Plan Repeat KUB in am Advance diet as tolerated Continue oral Flagyl and Florastor Melatonin 5 mg p.o. q.h.s. as needed as needed Patient was given my contact information She will follow up with me as an outpatient upon discharge for elective colonoscopy Dietary Evaluation Review Comments: 1) Consider a Soft Renal Specific K2,low phos,[place],2gNa,60g Pro/CCHO 45g diet 2) Continue current plan of care Expected Outcomes/Goals: 1) Pt labs to improve 2) F/U in 3-5 days Plan discussed with: Other (Nurse) KADE PUENTE MD Jun 08, 2024 18:04
--- NOTE | 2024-06-08 18:50 | DVH ---
Date: 06/08/2024 06:22 PM Examination: XY KUB ABDOMEN SINGLE VIEW History: colitis; abd pain Comparison: None TECHNIQUE: Frontal views of the abdomen was obtained. FINDINGS: Bowel gas pattern is unremarkable. Stool throughout the colon The lung bases are unremarkable. No acute osseous abnormality identified. Dextroscoliosis lumbar spine IMPRESSION: 1. Nonobstructive bowel gas pattern. 2. Stool throughout the colon suggesting constipation. 3. Dextroscoliosis of the lumbar spine with bony spondylosis and degenerative disc changes. HS:Y
[2024-06-09 01:00] VITALS: BP 151/66; PULSE 62; RESP 20; TEMP 98.5; O2SAT 99
[2024-06-09 05:00] VITALS: BP 148/71; PULSE 57; RESP 18; TEMP 97.7; O2SAT 95
[2024-06-09 08:00] VITALS: PULSE 65; RESP 18; O2SAT 96
[2024-06-09] MEDS ORDERED: VANC125PO PO (09:06)
[2024-06-09] MEDS ORDERED: SACC250C PO (09:06)
[2024-06-09] MEDS ORDERED: CHL4PW PO (09:06)
--- NOTE | 2024-06-09 09:12 | DVHDS2 ---
Discharge Summary Date of Admission Jun 02, 2024 at 17:54 Date of Discharge: Jun 09, 2024 Admitting Diagnosis Diarrhea and abdominal pain Wounds: none Labs/Diagnostic Data: Laboratory Results Test 06/09/24 05:56 06/03/24 06:43 06/02/24 11:46 06/02/24 11:40 POC Glucose 248 mg/dl (70-106) White Blood Count 6.0 10^3/uL (4.4-10.8) Red Blood Count 3.32 10^6/uL (4.0-5.20) Hemoglobin 9.9 g/dL (12.2-16.2) Hematocrit 29.6 % (36.0-46.0) Mean Corpuscular Volume 89.1 fL (80.0-100.0) Mean Corpuscular Hemoglobin 29.7 pg (28.0-32.0) Mean Corpuscular Hemoglobin Concent 33.4 g/dL (32.0-36.0) Red Cell Distribution Width 14.6 % (11.8-14.3) Platelet Count 248 10^3/uL (140-450) Mean Platelet Volume 7.7 fL (6.9-10.8) Neutrophils (%) (Auto) 61.6 % (37.0-80.0) Lymphocytes (%) (Auto) 22.9 % (10.0-50.0) Monocytes (%) (Auto) 11.8 % (0.0-12.0) Eosinophils (%) (Auto) 2.8 % (0.0-7.0) Basophils (%) (Auto) 0.9 % (0.0-2.0) Neutrophils # (Auto) 3.7 10 ^3/uL (1.6-8.6) Lymphocytes # (Auto) 1.4 10 ^3/uL (0.4-5.4) Monocytes # (Auto) 0.7 10 ^3/uL (0-1.3) Eosinophils # (Auto) 0.2 10 ^3/uL (0-0.8) Basophils # (Auto) 0.1 10 ^3/uL (0-0.2) Nucleated Red Blood Cells 0.0 % Sodium Level 139 mmol/L (136-145) Potassium Level 4.4 mmol/L (3.5-5.1) Chloride Level 106 mmol/L (98-107) Carbon Dioxide Level 26 mmol/L (20-31) Anion Gap 7 (5-15) Blood Urea Nitrogen 38 mg/dL (9-23) Creatinine 2.00 mg/dL (0.550-1.02) Glomerular Filtration Rate Calc 26 mL/min (>90) BUN/Creatinine Ratio 19.0 (10.0-20.0) Serum Glucose 109 mg/dL (74-106) Calcium Level 10.0 mg/dL (8.7-10.4) Total Bilirubin 0.4 mg/dL (0.2-1.0) Aspartate Amino Transferase (AST) 12 U/L (13-40) Alanine Aminotransferase (ALT) < 9 U/L (7-40) Alkaline Phosphatase 87 U/L (46-116) Total Protein 5.5 g/dL (5.7-8.2) Albumin 3.4 g/dL (3.2-4.8) Hemoglobin A1c 8.1 % A1C (<5.7) Triglycerides Level 230 mg/dL (< 150) Cholesterol Level 219 mg/dL (< 200) LDL Cholesterol 129 mg/dL (< 100) HDL Cholesterol 48 mg/dL (40-59) Urine Color Yellow (Yellow) Urine Clarity Turbid (Clear) Urine pH 6.5 (5.0-9.0) Urine Specific [place] 1.014 (1.001-1.035) Urine Protein 1+ (Negative) Urine Ketones Negative (Negative) Urine Blood Negative /uL (Negative) Urine Nitrite Negative (Negative) Urine Bilirubin Negative (Negative) Urine Urobilinogen Normal mg/dL (Negative) Urine Leukocyte Esterase 1+ /uL (Negative) Urine RBC 2 /hpf (0 - 4) Urine WBC 9 /hpf (0 - 5) Urine Squamous Epithelial Cells Few /hpf (<5) Urine Bacteria Few /hpf (None Seen) Urine Hyaline Casts Few /lpf (0 - 2) Urine Mucus Few (None Seen) Urine Glucose Normal mg/dL (Normal) Other Laboratory Tests 06/03/24 06:43 Brief Hx & Hospital Course: 73-year-old female seen one week ago in [facility] for diarrhea and discharged from the ER patient came in admitted here for abdominal pain and diarrhea diagnosed with C diff colitis treated with the p.o. Flagyl p.o. vancomycin for a store cholestyramine GI consult by Dr. Holly House dehydration resolved with the IV fluids comorbid conditions hypertension hypercholesterolemia diabetes at [facility] appropriately. At the time of discharge patient has occasion loose stools but feels much better with a stable vital signs. Cleared for discharge by the GI. Prescription for vancomycin Florastor and Questran transmitted to the pharmacy. She will continue all her previous home medications and follow up with the GI Dr. Holly House for colonoscopy Consults/Reason for consult GI Dr. Holly House Operations or Procedures CT abdomen pelvis without contrast Condition at Discharge: Fair Final Diagnosis/Problems List Acute abdominal pain Acute sigmoid colitis: C diff colitis p.o. Flagyl p.o. vancomycin, Florastor, cholestyramine GI consult by Dr. Holly House appreciated Acute Diarrhea Acute dehydration: LR 125 mL per hour LISA Hypertension Hypercholesterolemia: Lipitor Uncontrolled diabetes Hyperkalemia Insomnia: Melatonin Acute dehydration: IV fluids Discharge Disposition: Home Discharge Instruct/Medications Diet: Cardiac 2g Na,low cholest Activity: Light activity Follow Up/Referral: Resume all previous home medications Follow up with your primary Dr Follow up with the GI Dr. Holly House in two weeks for colonoscopy Medications: Vancomycin p.o. Florastor [facility] [email or web address] [id number] (Time taken for discharge summary 39 minutes) Discharge Statement: "Patient was advised to return to the ER or call 911 if any headaches, dizziness, shortness of breath, chest pain, abdominal pain, bleeding, fevers, or worsening of medical condition. Patient was counseled about treatment plan, medications, possible side effects, patientverbalized understanding. All questions were answered to the best of my ability. This discharge took greater then 30 minutes in planning, reviewing documentation, counseling the patient, and discussing with other team members." ASSESSMENT ASSESSMENT Hospital Course Uneventful Assessment Acute abdominal pain Acute sigmoid colitis: C diff colitis p.o. Flagyl p.o. vancomycin, Florastor, cholestyramine GI consult by Dr. Holly House appreciated Acute Diarrhea Acute dehydration: LR 125 mL per hour LISA Hypertension Hypercholesterolemia: Lipitor Uncontrolled diabetes Hyperkalemia Insomnia: Melatonin Acute dehydration: IV fluids Date of Service: Jun 09, 2024 Billing Provider: MILDRED DÍAZ MD Common Visit Codes: [id number] DISCH DAY >30min MILDRED DÍAZ MD Jun 09, 2024 09:12
[2024-06-09 09:20] VITALS: BP 128/65; PULSE 65; RESP 18; TEMP 97.5; O2SAT 96
[2024-06-09 11:33] VITALS: BP 128/65; PULSE 65; RESP 18; TEMP 97.5; O2SAT 96
[2024-06-09 13:00] VITALS: BP 113/65; PULSE 64; RESP 17; TEMP 98; O2SAT 95
== END 2024-06-09 12:55 | disposition home or self-care (01) | DRG 371 ==
LOC: ER 11:07 → EDBD 11:07 → OVERFLOW 17:54 → WEST WING 20:42 → EAST 06-04 14:58
PROVIDERS: ADMIT Registered Nurse; ATTEND Family Medicine
DX: A04.72 Enterocolitis due to Clostridium difficile, not specified as recurrent (principal); N17.0 Acute kidney failure with tubular necrosis; I10 Essential (primary) hypertension; E86.0 Dehydration; E11.40 Type 2 diabetes mellitus with diabetic neuropathy, unspecified; E87.5 Hyperkalemia; E78.00 Pure hypercholesterolemia, unspecified; M10.9 Gout, unspecified; G47.00 Insomnia, unspecified; Z88.1 Allergy status to other antibiotic agents; Z90.710 Acquired absence of both cervix and uterus; Z83.3 Family history of diabetes mellitus; Z82.49 Family history of ischemic heart disease and other diseases of the circulatory system; Z87.442 Personal history of urinary calculi; Z90.721 Acquired absence of ovaries, unilateral; Z88.2 Allergy status to sulfonamides
CPT/HCPCS: 36415; 74018; 74176; 80053; 80061; 81001; 82962; 83036; 85025; 87045; 87427; 87493; G0378; J1815; J2405; J2470; J3490

== ENCOUNTER 2024-07-04 02:32 | Emergency (ER) | payer OTHER ==
[~2024-07-04] VITALS: Ht 152.4 cm; Wt 57.7 kg
[~2024-07-04 02:32] MED LIST changes: +AMLO1TAB22 PO; +CHL4PW PO; +GABA-1250 PO; +INSU75IN2 SC; +SACC250C PO; +SIMV20TA20 PO; +VALS1TAB59 PO; +VANC125PO PO
--- NOTE | 2024-07-04 02:55 | ED.PDOC ---
GI ASSESSMENT HPI Comments A 73 year old female brought by EMS presents to the ED with a chief complaint of abdominal pain onset today. Patient states she os also experiencing nausea, vomiting, cough that causes shortness of breath. She also noticed low back pain, painful urination with a burning sensation. She has a past medical history of Gout, Arthritis, Colitis, kidney stones, DM, HTN. Denies headache, dizziness, chest pain, blurry vision, diarrhea. No other symptoms or modifying factors present at this time. Chief Complaint: Abdominal Pain Time Seen by MD: 02:42 Primary Care Provider: DOES NOT KNOW Reviewed Notes: Medications, Allergies Allergies: Coded Allergies: Azithromycin (Verified Allergy, Unknown, 12/08/22) Lisinopril (Verified Allergy, Unknown, 12/08/22) Sulfa Antibiotics (Verified Allergy, Unknown, 12/08/22) Home Meds Active Scripts Vancomycin Hcl (Vancomycin Po) 125 Mg So, 125 MG PO QID, #40 ML Prov:MILDRED DÍAZ MD 06/09/24 Cholestyramine (QUESTRAN POWDER) 4 Gm Pw, 4 GM PO DAILY, #40 POW Prov:MILDRED DÍAZ MD 06/09/24 Yeast (S. Boulardii)(S. Cerevi (Florastor) 250 Mg Cap, 250 MG PO DAILY, #30 CAP Prov:MILDRED DÍAZ MD 06/09/24 Lactulose (Lactulose) 10 Gm/15 Ml Sylwia, 10 GM PO BID PRN, #100 ML Prov:ALFREDO LASSITER PHOTOGRAMMETRIC ENGINEER 05/10/23 Tramadol Hcl (Tramadol Hcl) 50 Mg Tab, 50 MG PO Q6HP PRN for 5 Days, #20 TAB Prov:ANGELO VILLATORO MD 12/08/22 Reported Medications Amlodipine Besylate (Amlodipine Besylate) 5 Mg Tab, 1 TAB PO DAILY 06/03/24 Insulin Lispro Protamine & Lis (Humalog Mix 75/25 Kwikpen) 75 Mg/25 Kwp Inj, 10 UNIT SC TID 06/03/24 Gabapentin (Gabapentin) 300 Mg Cap, 1 CAP PO every night PRN 06/02/24 Simvastatin (Simvastatin) 20 Mg Tab, 1 TAB PO 06/02/24 Valsartan (Valsartan) 320 Mg Tab, 1 TAB PO DAILY 06/02/24 Information Source: Patient, Emergency Med Personnel Mode of Arrival: EMS Timing: Hours Duration: Since onset Prehospital treatment: None Severity: Moderate Pain Location: Diffuse Associated sign and symptoms: Nausea, Vomiting, Constipation, Abdominal Pain Vital Signs Vital Signs Date Time Temp Pulse Resp B/P (MAP) Pulse Ox O2 Delivery O2 Flow Rate FiO2 07/04/24 04:37 98.3 90 16 140/90 (107) 97 98.3 Physical Exam General: Awake, alert and oriented. No acute distress. Skin: Skin in warm, dry and intact. Appropriate color for ethnicity. Nailbeds pink with no cyanosis. HEENT: The head is normocephalic and atraumatic. Conjunctivae are clear without exudates or hemorrhage. Sclera is non-icteric. EOM are intact. No signs of nystagmus. Eyelids are normal in appearance without swelling or lesions. Oral mucosa is pink and moist Neck: The neck is supple with normal range of motion. No JVD. Cardiac: Heart rate and rhythm are normal. No murmurs, gallops, or rubs are auscultated. Respiratory: No signs of respiratory distress. Lung sounds are clear in all lobes bilaterally without rales, ronchi, or wheezes. Abdominal: Abdomen is soft, right lower quadrant-tender without distention. Bowel sounds are present and normoactive in all four quadrants. Extremities: Upper and lower extremities are atraumatic in appearance without deformity or edema. Neurological: The patient is awake, alert and oriented to person, place, and time with normal speech. Speech is clear. There is no facial asymmetry. Psychiatric: Appropriate mood and affect. Good judgement and insight. No visual or auditory hallucinations. Review of Systems: REVIEW OF SYSTEMS: No fever, no chills, or fatigue HEENT: No sore throat, no earache, no congestion, no neck pain. Cardiac: No chest pain. No palpitations. Lungs: Positive shortness of breath, positive cough. GI: Positive nausea, positive vomiting, no diarrhea, no constipation, no abdo kimberley pain : Positive dysuria, frequency, or urgency. No hematuria. Musculoskeletal: No joint pain , no joint swelling, no extremity edema. Positive low back pain Skin: No rash, no itching. Neuro: No headache, no dizziness, no weakness Past Medical History PAST MEDICAL HISTORY: Arthritis, DM, Gout, High Lipids, HTN, Kidney Stones Surgical History: Hernia Repair, Hysterectomy, Tonsillectomy HOG GRADER History: Denies all HOG GRADER Hx Family History Family History: Family hx of DM, Family hx of Cancer, Family hx of heart myriam Social History Smoker: Non-Smoker Alcohol: Denies ETOH Use Drugs: Denies Drug Use Lives In: Home Was a procedure done? Was a procedure done?: No GI differential Dx Differential Diagnosis: Other Other Differential Diagnosis Differential diagnoses considered include: Abdominal aortic aneurysm, NH, esophageal rupture, intestinal obstruction, mesenteric ischemia, perforated viscus or solid organ rupture, CHF with hepatomegaly, pneumonia, abscess, appendicitis, biliary disease, diverticulitis, gastritis, gastroenteritis, hepatitis, hernia, inflammatory bowel disease, pancreatitis, peptic ulcer disease, ureteral colic, constipation, GERD, irritable syndrome, abdominal wall pain, nonspecific abdominal pain, herpes zoster. X-Ray, Labs, Meds, VS Vital Signs Date Time Temp Pulse Resp B/P (MAP) Pulse Ox O2 Delivery O2 Flow Rate FiO2 07/04/24 04:37 98.3 90 16 140/90 (107) 97 98.3 07/04/24 04:36 90 18 140/90 07/04/24 02:49 98.1 93 26 140/80 (100) 95 Lab Test 07/04/24 02:57 Range/Units White Blood Count 6.1 4.4-10.8 10^3/uL Red Blood Count 3.86 L 4.0-5.20 10^6/uL Hemoglobin 11.6 L 12.2-16.2 g/dL Hematocrit 34.2 L 36.0-46.0 % Mean Corpuscular Volume 88.5 80.0-100.0 fL Mean Corpuscular Hemoglobin 30.0 28.0-32.0 pg Mean Corpuscular Hemoglobin Concent 33.8 32.0-36.0 g/dL Red Cell Distribution Width 14.9 H 11.8-14.3 % Platelet Count 167 140-450 10^3/uL Mean Platelet Volume 8.0 6.9-10.8 fL Neutrophils (%) (Auto) 77.2 37.0-80.0 % Lymphocytes (%) (Auto) 13.8 10.0-50.0 % Monocytes (%) (Auto) 8.5 0.0-12.0 % Eosinophils (%) (Auto) 0.1 0.0-7.0 % Basophils (%) (Auto) 0.4 0.0-2.0 % Neutrophils # (Auto) 4.7 1.6-8.6 10 ^3/uL Lymphocytes # (Auto) 0.8 0.4-5.4 10 ^3/uL Monocytes # (Auto) 0.5 0-1.3 10 ^3/uL Eosinophils # (Auto) 0 0-0.8 10 ^3/uL Basophils # (Auto) 0 0-0.2 10 ^3/uL Nucleated Red Blood Cells 0.1 % Sodium Level 139 136-145 mmol/L Potassium Level 4.5 3.5-5.1 mmol/L Chloride Level 106 98-107 mmol/L Carbon Dioxide Level 22 20-31 mmol/L Anion Gap 11 5-15 Blood Urea Nitrogen 28 H 9-23 mg/dL Creatinine 1.48 H 0.550-1.02 mg/dL Glomerular Filtration Rate Calc 37 >90 mL/min BUN/Creatinine Ratio 18.9 10.0-20.0 Serum Glucose 158 H 74-106 mg/dL Lactic Acid Level 1.1 0.4-2.0 mmol/L Calcium Level 10.2 8.7-10.4 mg/dL Total Bilirubin 0.3 0.2-1.0 mg/dL Aspartate Amino Transferase (AST) 24 13-40 U/L Alanine Aminotransferase (ALT) 16 7-40 U/L Alkaline Phosphatase 160 H 46-116 U/L Total Protein 6.7 5.7-8.2 g/dL Albumin 4.5 3.2-4.8 g/dL Lipase 24 12-53 U/L Current Medications Medications (Trade) Dose Ordered Sig/Jacquelyn Route Start Time Stop Time Status Last Admin Morphine Sulfate 4 mg ONCE ONCE IV 07/04/24 03:00 07/04/24 03:01 DC 07/04/24 04:36 Ondansetron HCl (Zofran) 4 mg ONCE ONCE IV 07/04/24 03:00 07/04/24 03:01 DC 07/04/24 04:[address] [address] Ph: [phone] DIAGNOSTIC IMAGING Diagnostic Imaging Report : [id number] Signed PATIENT: ANSELMO PAEZ ACCT: [id number] UNIT: [id number] : 1950 LOC: ER ROOM / BED: / AGE / SEX: 73 / F ADM STATUS: REG ER SERVICE 0250 ORDERING PHYSICIAN: LONDON LIPSCOMB MD PROCEDURE(s): ABPL - CT AB PEL WO CON-NO ORAL OR IV REASON: abd pain ORDER NUMBER(s): [id number], ACCESSION NUMBER(s): [id number] Exam: CT CT AB PEL WO CON-NO ORAL OR IV History: abd pain Comparison Study: CT scan of the abdomen pelvis performed on 06/02/2024 Technique: Multidetector spiral CT of the abdomen and pelvis was performed from lung bases to pubic symphysis. Imaging was performed without intravenous contrast. Coronal and sagittal multiplanar reformats were obtained from the axial data set by the technologist. Radiation Dose : 1. Abdomen/Pelvis: CTDIvol 5.7 mGy, DLP 267.9 mGy*cm. Findings: Evaluation of vasculature and solid organs is limited due to lack of intravenous contrast use. Lung Bases: Multiple pulmonary nodules in the bilateral lower lobes. For reference, there is a 6 mm solid nodule in the right middle lobe. Visualized portions of the heart and pericardium are unremarkable. Liver: The liver is normal in size. No focal lesions. Gallbladder and Biliary Tree: The gallbladder is unremarkable. No intrahepatic or extrahepatic biliary ductal dilatation. Spleen: Unremarkable Pancreas: The pancreas is grossly unremarkable. Adrenal Glands: Unremarkable Kidneys: Punctate left nephrolithiasis. Heterogeneous appearance of the bilateral kidneys. No hydronephrosis. Bilateral perinephric fat stranding, nonspecific. GI tract: Small hiatal hernia. No evidence of small bowel wall thickening or a bnormal dilatation to suggest bowel obstruction. Sigmoid diverticulosis without acute diverticulitis. Scattered stool throughout the colon. The appendix is visualized and is normal. Peritoneum/mesentery/retroperitoneum. No evidence of free intraperitoneal air. No ascites. No evidence of suspicious lymphadenopathy. Abdominal Wall: Unremarkable. Vasculature: The visualized abdominal aorta is normal in size and caliber. Evaluation of abdominal and pelvic vessels is limited due to lack of intravenous contrast. Urinary Bladder: Grossly unremarkable for degree of distention. Pelvic Organs: Multiple calcified fibroids. Musculoskeletal: No aggressive focal bony lesions, acute fractures or dislocation. S shaped scoliosis. Bilateral hip joint effusions. IMPRESSION: 1. No acute abdominal or pelvic findings. 2. Sigmoid diverticulosis without acute diverticulitis. 3. Multiple bilateral lower lobe pulmonary nodules measuring up to 6 mm in the right middle lobe. Metastatic disease can not be excluded. Dedicated chest CT recommended for further evaluation. ATED BY: DALIA FELIPE MD DICTATED DATE/TIME: 07/04/24503 SIGNED BY: DALIA FELIPE MD SIGNED DATE/TIME: 07/04/24503 CC: [place] [id number] Ph: [phone] DIAGNOSTIC IMAGING Diagnostic Imaging Report : [id number] Signed PATIENT: ANSELMO PAEZ ACCT: [id number] UNIT: [id number] : 1950 LOC: ER ROOM / BED: / AGE / SEX: 73 / F ADM STATUS: REG ER SERVICE 9 ORDERING PHYSICIAN: LONDON LIPSCOMB MD PROCEDURE(s): CXR1 - CHEST XRAY 1 VIEW REASON: cough ORDER NUMBER(s): [id number], ACCESSION NUMBER(s): [id number] CHEST RADIOGRAPH Indication: cough Technique: Single frontal view of the chest was obtained Comparison: None FINDINGS: Lines and Tubes: None Lungs: No focal consolidation. Pleura: No effusion. No pneumothorax. Cardiomediastinal contours: Unremarkable Bones: No acute osseous abnormality. IMPRESSION: No acute cardiopulmonary disease. ATED BY: ISRAEL RODRÍGUEZ MD DICTATED DATE/TIME: 07/04/24506 SIGNED BY: ISRAEL RODRÍGUEZ MD SIGNED DATE/TIME: 07/04/24506 CC: Time of 1ST Reevaluation: 03:12 Reevaluation 1ST: Unchanged Patient Education/Counseling: Diagnosis, Treatment, Prognosis Family Education/Counseling: No Family Present Departure 1 Departure Time of Disposition: 05:51 Impression: Primary Impression: Abdominal pain Disposition: 01 HOME / SELF CARE / HOMELESS Condition: Stable Additional Instructions: ED DISCHARGE INSTRUCTIONS Instructions: Please read all instructions provided in this packet carefully. Although you have been discharged from the Emergency Department, this does not mean that you have a "clean bill of health". No definitive diagnosis for your symptoms has been made today. It is possible that you are in the process of developing a serious illness. This is why you must return to the ED without fail if any new or worsening symptoms (especially if your symptoms include chest pain, trouble breathing, abdominal pain, fever, headache, confusion, trouble seeing, or trouble walking) It is also very important that you see a primary care doctor within the next 3-5 days to follow up. Follow up with the primary care provider about the following abnormal findings on your CT scan: 3. Multiple bilateral lower lobe pulmonary nodules measuring up to 6 mm in the right middle lobe. Metastatic disease can not be excluded. Dedicated chest CT recommended for further evaluation. If you are unable to get an appointment, return to the ED for re-evaluation. Abdominal Pain: Care Instructions Overview Abdominal pain has many possible causes. Some aren't serious and get better on their own in a few days. Others need more testing and treatment. If your pain continues or gets worse, you need to be rechecked and may need more tests to find out what is wrong. You may need surgery to correct the problem. Don't ignore new symptoms, such as fever, nausea and vomiting, urination problems, pain that gets worse, and dizziness. These may be signs of a more serious problem. If you are not getting better, you may need more tests or treatment. The doctor has checked you carefully, but problems can develop later. If you notice any problems or new symptoms, get medical treatment right away. Follow-up care is a tanner part of your treatment and safety. Be sure to make and go to all appointments, and call your doctor if you are having problems. It's also a good idea to know your test results and keep a list of the medicines you take. How can you care for yourself at home? Rest until you feel better. To prevent dehydration, drink plenty of fluids. Choose water and other clear liquids until you feel better. If you have kidney, heart, or liver disease and have to limit fluids, talk with your doctor before you increase the amount of fluids you drink. When you feel like eating, start with small amounts. Do not have alcohol, caffeine, or spicy, hot, or high-fat foods for a day or two. Avoid anti-inflammatory medicines such as aspirin, ibuprofen (Advil, Motrin), and naproxen (Aleve). These can cause stomach upset. Talk to your doctor if you take daily aspirin for another health problem. When should you call for help? Call 911 anytime you think you may need emergency care. For example, call if: You passed out (lost consciousness). You pass maroon or very bloody stools. You vomit blood or what looks like coffee grounds. You have severe belly pain. Call your doctor now or seek immediate medical care if: Your pain gets worse, especially if it becomes focused in one area of your belly. You have a new or higher fever. Your stools are black and look like tar, or they have streaks of blood. You have unexpected vaginal bleeding. You have symptoms of a urinary tract infection. These may include: Pain when you urinate. Urinating more often than usual. Blood in your urine. You are dizzy or lightheaded, or you feel like you may faint. Watch closely for changes in your health, and be sure to contact your doctor if: You are not getting better as expected. Credits for Abdominal Pain: Care Instructions Current as of: May 18, 2023 Author: [employer] Staff Clinical Review Board All [employer] education is reviewed by a team that includes physicians, nurses, advanced practitioners, registered dieticians, and other healthcare professionals. Comments Extensive evaluation was performed to identify or rule out: (See differential diagnosis section) The following tests were ordered, and results were reviewed by me: (See diagnostic results section) The following test were independently interpreted by me: N/A I reviewed and agreed with the following test results read by other providers: N/A I reviewed the following notes from the pt's past medical encounters: (None available at this time) Additional information was gathered from interviewing the following independent historians: N/A Discussion of management or test interpretation with external physician/other qualified health care process manager: N/A Addressed [ ]one or more chronic illnesses with severe exacerbation, progression, or side effects of treatment: [ ]an acute or chronic illness that poses a threat to life or bodily function: [ ] Decision regarding hospitalization or escalation of hospital level of care: Risk and benefits of admission for further treatment of patient's condition was considered. Due to patient's current clinical condition, high risk of decline and poor outcome if discharged and need for further inpatient management and monitoring, patient was admitted to the hospital. Drug therapy requiring intensive monitoring for toxicity: IV Zofran Parenteral controlled substances: Morphine Decision regarding elective major surgery with identified patient or procedure risk factors: N/A Decision regarding emergency major surgery: N/A Decision not to resuscitate or to de-escalate care because of poor prognosis: N/A Decision regarding hospitalization or escalation of hospital level of care: R isks and benefits of admission for further treatment of patient's condition was considered however due to patient's stable condition patient will be discharged to follow up closely or return to care for worsening of condition or inability to follow up. Critical Care Note Critical Care Time?: No Stability Stability form required: No I personally scribed for LONDON LIPSCOMB MD ([email or web address]) on 07/04/24 at 02:55. Electronically submitted by Nell Schuler ([email or web address]). I personally scribed for LONDON LIPSCOMB MD ([email or web address]) on 07/04/24 at 05:26. Electronically submitted by Nell Schuler ([email or web address]). LONDON LIPSCOMB MD Jul 04, 2024 02:55
[2024-07-04 03:26] LABS: Basophils # (auto) 0 10 ^3/uL (0-0.2); Basophils % (auto) 0.4 % (0.0-2.0); Eosinophils # (auto) 0 10 ^3/uL (0-0.8); Eosinophils % (auto) 0.1 % (0.0-7.0); Hematocrit 34.2 % (36.0-46.0); Hemoglobin 11.6 g/dL (12.2-16.2); Lymphocytes # (auto) 0.8 10 ^3/uL (0.4-5.4); Lymphocytes % (auto) 13.8 % (10.0-50.0); Mean Corpuscular Hgb Conc. 33.8 g/dL (32.0-36.0); Mean Corpuscular Volume 88.5 fL (80.0-100.0); Monocytes # (auto) 0.5 10 ^3/uL (0-1.3); Monocytes % (auto) 8.5 % (0.0-12.0); Neutrophils # (auto) 4.7 10 ^3/uL (1.6-8.6); Neutrophils % (auto) 77.2 % (37.0-80.0); Nucleated Red Blood Cells % 0.1 %; Platelet Count (auto) 167 10^3/uL (140-450); Red Blood Cells 3.86 10^6/uL (4.0-5.20); Red Cell Distribution Width 14.9 % (11.8-14.3); White Blood Cell 6.1 10^3/uL (4.4-10.8)
[2024-07-04 03:48] LABS: Alanine Aminotransferase 16 U/L (7-40); Albumin 4.5 g/dL (3.2-4.8); Anion Gap 11 (5-15); Aspartate Aminotransferase 24 U/L (13-40); BUN/Creatinine Ratio 18.9 (10.0-20.0); Calcium 10.2 mg/dL (8.7-10.4); Carbon Dioxide 22 mmol/L (20-31); Chloride 106 mmol/L (98-107); Lipase 24 U/L (12-53); Potassium 4.5 mmol/L (3.5-5.1); Sodium 139 mmol/L (136-145)
[2024-07-04 03:49] LABS: Total Protein 6.7 g/dL (5.7-8.2)
[2024-07-04 04:00] LABS: Alkaline Phosphatase 160 U/L (46-116); Bilirubin, Total 0.3 mg/dL (0.2-1.0); Blood Urea Nitrogen 28 mg/dL (9-23); Glucose 158 mg/dL (74-106)
[2024-07-04] MEDS: ONDANSETRON HCL 4 MG/2 ML VIAL IV ONE (04:36)
[2024-07-04] MEDS: MORPHINE SULFATE 4 MG/ML SYR/VIAL IV ONE (04:36)
--- NOTE | 2024-07-04 05:07 | DVH ---
Exam: CT CT AB PEL WO CON-NO ORAL OR IV History: abd pain Comparison Study: CT scan of the abdomen pelvis performed on 06/02/2024 Technique: Multidetector spiral CT of the abdomen and pelvis was performed from lung bases to pubic s ymphysis. Imaging was performed without intravenous contrast. Coronal and sagittal multiplanar refor mats were obtained from the axial data set by the technologist. Radiation Dose : 1. Abdomen/Pelvis: CTDIvol 5.7 mGy, DLP 267.9 mGy*cm. Findings: Evaluation of vasculature and solid organs is limited due to lack of intravenous contrast use. Lung Bases: Multiple pulmonary nodules in the bilateral lower lobes. For reference, there is a 6 mm solid nodule in the right middle lobe. Visualized portions of the heart and pericardium are unremarka ble. Liver: The liver is normal in size. No focal lesions. Gallbladder and Biliary Tree: The gallbladder is unremarkable. No intrahepatic or extrahepatic bilia ry ductal dilatation. Spleen: Unremarkable Pancreas: The pancreas is grossly unremarkable. Adrenal Glands: Unremarkable Kidneys: Punctate left nephrolithiasis. Heterogeneous appearance of the bilateral kidneys. No hydrone phrosis. Bilateral perinephric fat stranding, nonspecific. GI tract: Small hiatal hernia. No evidence of small bowel wall thickening or abnormal dilatation to suggest bowel obstruction. Sigmoid diverticulosis without acute diverticulitis. Scattered stool throu ghout the colon. The appendix is visualized and is normal. Peritoneum/mesentery/retroperitoneum. No evidence of free intraperitoneal air. No ascites. No evidenc e of suspicious lymphadenopathy. Abdominal Wall: Unremarkable. Vasculature: The visualized abdominal aorta is normal in size and caliber. Evaluation of abdominal a nd pelvic vessels is limited due to lack of intravenous contrast. Urinary Bladder: Grossly unremarkable for degree of distention. Pelvic Organs: Multiple calcified fibroids. Musculoskeletal: No aggressive focal bony lesions, acute fractures or dislocation. S shaped scoliosis . Bilateral hip joint effusions. IMPRESSION: 1. No acute abdominal or pelvic findings. 2. Sigmoid diverticulosis without acute diverticulitis. 3. Multiple bilateral lower lobe pulmonary nodules measuring up to 6 mm in the right middle lobe. Met astatic disease can not be excluded. Dedicated chest CT recommended for further evaluation.
--- NOTE | 2024-07-04 05:09 | DVH ---
CHEST RADIOGRAPH Indication: cough Technique: Single frontal view of the chest was obtained Comparison: None FINDINGS: Lines and Tubes: None Lungs: No focal consolidation. Pleura: No effusion. No pneumothorax. Cardiomediastinal contours: Unremarkable Bones: No acute osseous abnormality. IMPRESSION: No acute cardiopulmonary disease.
[2024-07-04 07:36] VITALS: BP 131/69; PULSE 89; RESP 17; TEMP 98.8; O2SAT 96
== END 2024-07-04 07:40 | disposition home or self-care (01) ==
LOC: EDBD 02:32 → ER 02:32
DX: R10.84 Generalized abdominal pain (principal); E11.9 Type 2 diabetes mellitus without complications; K59.00 Constipation, unspecified; M54.50 Low back pain, unspecified; I10 Essential (primary) hypertension; M10.9 Gout, unspecified; M19.90 Unspecified osteoarthritis, unspecified site; Z79.899 Other long term (current) drug therapy; Z87.442 Personal history of urinary calculi; Z88.1 Allergy status to other antibiotic agents; Z88.2 Allergy status to sulfonamides; Z88.8 Allergy status to other drugs, medicaments and biological substances; Z90.710 Acquired absence of both cervix and uterus; Z98.890 Other specified postprocedural states
CPT/HCPCS: 36415; 71045; 74176; 80053; 83605; 83690; 85025; 96374; 96375; 99285; J2270; J2405

== ENCOUNTER 2024-12-24 09:28 | Emergency (ER) | payer OTHER ==
[~2024-12-24] VITALS: Ht 154.9 cm; Wt 59.0 kg
--- NOTE | 2024-12-24 10:15 | ED.PDOC ---
GI ASSESSMENT HPI Comments 74 y/o F, with PMHx of CKF, HTN, DMII, HLD, and kidney stones presents to the ED for CC of abdominal pain. Patient states, that she has been experiencing diffuse abdominal pain xdays. Patient reports, she had a regular scheduled appointment with her PCP which she was unable to go to d/t symptoms; endorses later receiving a call from her PCP to follow up with the ED for possible hyperkalemia. Patient denies nausea, vomiting, or diarrhea. No other symptoms or modifying factors present at this time. Chief Complaint: Abdominal Pain Time Seen by MD: 10:00 Primary Care Provider: DOES NOT KNOW Reviewed Notes: Nurses Notes, Medications, Allergies Allergies: Coded Allergies: Azithromycin (Verified Allergy, Unknown, 12/08/22) Lisinopril (Verified Allergy, Unknown, 12/08/22) Sulfa Antibiotics (Verified Allergy, Unknown, 12/08/22) Home Meds Active Scripts Vancomycin Hcl (Vancomycin Po) 125 Mg So, 125 MG PO QID, #40 ML Prov:MILDRED DÍAZ MD 06/09/24 Cholestyramine (QUESTRAN POWDER) 4 Gm Pw, 4 GM PO DAILY, #40 POW Prov:MILDRED DÍAZ MD 06/09/24 Yeast (S. Boulardii)(S. Cerevi (Florastor) 250 Mg Cap, 250 MG PO DAILY, #30 CAP Prov:MILDRED DÍAZ MD 06/09/24 Lactulose (Lactulose) 10 Gm/15 Ml Sylwia, 10 GM PO BID PRN, #100 ML Prov:ALFREDO LASSITER AUDIT MANAGER 05/10/23 Tramadol Hcl (Tramadol Hcl) 50 Mg Tab, 50 MG PO Q6HP PRN for 5 Days, #20 TAB Prov:ANGELO VILLATORO MD 12/08/22 Reported Medications Amlodipine Besylate (Amlodipine Besylate) 5 Mg Tab, 1 TAB PO DAILY 06/03/24 Insulin Lispro Protamine & Lis (Humalog Mix 75/25 Kwikpen) 75 Mg/25 Kwp Inj, 10 UNIT SC TID 06/03/24 Gabapentin (Gabapentin) 300 Mg Cap, 1 CAP PO every night PRN 06/02/24 Simvastatin (Simvastatin) 20 Mg Tab, 1 TAB PO 06/02/24 Valsartan (Valsartan) 320 Mg Tab, 1 TAB PO DAILY 06/02/24 Information Source: Patient Mode of Arrival: Ambulatory Timing: Days Duration: Since onset Prehospital treatment: None Quality: None Vomitus: None Stool: Normal Severity: Moderate Recent: None Recent Hx of: None Pain Location: Diffuse Modifying Factors: Nothing Associated sign and symptoms: Abdominal Pain Past Medical History PAST MEDICAL HISTORY: Arthritis, DM, Gout, High Lipids, HTN, Kidney Stones Surgical History: Hernia Repair, Hysterectomy, Tonsillectomy 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 Hx Family History Family History: Family hx of DM, Family hx of Cancer, Family hx of heart myriam Social History Smoker: Non-Smoker Alcohol: Denies ETOH Use Drugs: Denies Drug Use Lives In: Home Constitutional: denies: chills, diaphoresis, fatigue, fever, malaise, sweats, weakness, others EENTM: denies: blurred vision, double vision, ear bleeding, ear discharge, ear drainage, ear pain, ear ringing, eye pain, eye redness, hearing loss, mouth pain, mouth swelling, nasal discharge, nose bleeding, nose congestion, nose pain, photophobia, tearing, throat pain, throat swelling, voice changes, others Respiratory: denies: cough, hemoptysis, orthopnea, SOB at rest, shortness of breath, SOB with excertion, stridor, wheezing, others Gastrointestinal: reports: abdominal pain; denies: abdomen distended, blood streaked bowels, constipated, diarrhea, dysphagia, difficulty swallowing, hematemesis, melena, nausea, poor appetite, poor fluid intake, rectal bleeding, rectal pain, vomiting, others Genitourinary: denies: abnormal vagina bleeding, burning, dyspareunia, dysuria, flank pain, frequency, hematuria, incontinence, pain, , vagina discharge, urgency, others Neurological: denies: dizziness, fainting, headache, left sided numbness, left sided weakness, numbness, paresthesia, pre-existing deficit, right sided numbness, right sided weakness, seizure, speech problems, tingling, tremors, weakness, others Musculoskeletal: denies: back pain, gout, joint pain, joint swelling, muscle pain, muscle stiffness, neck pain, others Integumetry: denies: bruises, change in color, change in hair/nails, dryness, laceration, lesions, lumps, rash, wounds, others Allergic/Immunocompromised: denies: Difficulty Healing, Frequent Infections, Hives, Itching, others Hematologic/Lymphatic: denies: anemia, blood clots, easy bleeding, easy bruising, swollen glands, others Endocrine: denies: excessive hunger, excessive sweating, excessive thirst, excessive urination, flushing, intolerance to cold, intolerance to heat, unexplained weight gain, unexplained weight loss, others Psychiatric: denies: anxiety, bipolar disorder, depression, hopeless, panic disorder, schizophrenia, sleepless, suicidal, others All Other Systems: Reviewed and Negative Physical Exam General Appearance: Moderate Distress HEENT: Normal ENT Inspection, Pharynx Normal, TMs Normal Neck: Full Range of Motion, Non-Tender, Normal, Normal Inspection Respiratory: Chest Non-Tender, Lungs Clear, No Accessory Muscle Use, No Respiratory Distress, Normal Breath Sounds Cardiovascular: No Edema, No JVD, No Murmur, No Gallop, Normal Peripheral Pulses, Regular Rate/Rhythm Breast Exam: Deferred Gastrointestinal: No Organomegaly, Non Tender, No Pulsatile Mass, Normal Bowel Sounds, Soft Genitalia: Deferred Pelvic: Deferred Rectal: Deferred Extremities: No calf tenderness, Normal capillary refill, Normal inspection, Normal range of motion, Non-tender, No pedal edema Musculoskeletal : Apperance: Normal Neurologic: Alert, field support technician II-XII nml as Tested, No Motor Deficits, Normal Affect, Normal Mood, No Sensory Deficits Cerebellar Function: Normal Reflexes: Normal Skin: Dry, Normal Color, Warm Peripheral Pulses: 3+ Radial (R), 3+ Radial (L) Lymphatic: No Adenopathy EKG EKG : Pulse Rate (adult): 86 [place]: Normal Cardiac Rhythm: NSR Block: None Hypertrophy: None ST: Normal Was a procedure done? Was a procedure done?: No GI differential Dx Differential Diagnosis: Constipation, Diverticular disease, Esophagitis, Gastritis/PUD, Gastroenteritis, Electrolyte Imbalance, Food Poisoning, Bacterial, Viral, Other (hyperkalemia) X-Ray, Labs, Meds, VS Vital Signs Date Time Temp Pulse Resp B/P (MAP) Pulse Ox O2 Delivery O2 Flow Rate FiO2 12/24/24 11:44 98.1 90 18 146/86 (106) 97 98.1 12/24/24 10:16 86 12/24/24 10:09 89 12/24/24 09:39 98.8 86 16 158/78 (104) 98 98.8 Lab Test 12/24/24 10:04 12/24/24 09:50 Range/Units White Blood Count 7.0 4.4-10.8 10^3/uL Red Blood Count 4.02 4.0-5.20 10^6/uL Hemoglobin 12.2 12.2-16.2 g/dL Hematocrit 36.2 36.0-46.0 % Mean Corpuscular Volume 90.1 80.0-100.0 fL Mean Corpuscular Hemoglobin 30.3 28.0-32.0 pg Mean Corpuscular Hemoglobin Concent 33.7 32.0-36.0 g/dL Red Cell Distribution Width 13.3 11.8-14.3 % Platelet Count 215 140-450 10^3/uL Mean Platelet Volume 7.8 6.9-10.8 fL Neutrophils (%) (Auto) 69.8 37.0-80.0 % Lymphocytes (%) (Auto) 19.8 10.0-50.0 % Monocytes (%) (Auto) 6.5 0.0-12.0 % Eosinophils (%) (Auto) 3.2 0.0-7.0 % Basophils (%) (Auto) 0.7 0.0-2.0 % Neutrophils # (Auto) 4.9 1.6-8.6 10 ^3/uL Lymphocytes # (Auto) 1.4 0.4-5.4 10 ^3/uL Monocytes # (Auto) 0.5 0-1.3 10 ^3/uL Eosinophils # (Auto) 0.2 0-0.8 10 ^3/uL Basophils # (Auto) 0 0-0.2 10 ^3/uL Nucleated Red Blood Cells 0.0 % Sodium Level 138 136-145 mmol/L Potassium Level 5.0 3.5-5.1 mmol/L Chloride Level 106 98-107 mmol/L Carbon Dioxide Level 22 20-31 mmol/L Anion Gap 10 5-15 Blood Urea Nitrogen 43 H 9-23 mg/dL Creatinine 1.57 H 0.550-1.02 mg/dL Glomerular Filtration Rate Calc 34 >90 mL/min BUN/Creatinine Ratio 27.4 H 10.0-20.0 Serum Glucose 265 H 74-106 mg/dL Calcium Level 10.5 H 8.7-10.4 mg/dL Urine Color Light-yellow Yellow Urine Clarity Clear Clear Urine pH 5.5 5.0-9.0 Urine Specific [place] 1.013 1.001-1.035 Urine Protein Negative Negative Urine Ketones Negative Negative Urine Blood Negative Negative /uL Urine Nitrite Negative Negative Urine Bilirubin Negative Negative Urine Urobilinogen Normal Negative mg/dL Urine Leukocyte Esterase Trace Negative /uL Urine RBC None seen 0 - 4 /hpf Urine Microscopic WBC 2 0-5 /HPF Urine Squamous Epithelial Cells Few <5 /hpf Urine Bacteria None seen None Seen /hpf Urine Glucose Normal Normal mg/dL Patient alert. Complaining of abdominal discomfort. Abdomen is soft nontender. Vitals stable. No sign of distress. Urinalysis shows UTI. Blood sugar slightly elevated. Was given prescription of Keflex antibiotic. Explained to the patient about her hyperglycemia. Was told to follow up with her primary care physician. Was told to come back if there is any problem. Time of 1ST Reevaluation: 10:30 Reevaluation 1ST: Unchanged Patient Education/Counseling: Diagnosis, Treatment Family Education/Counseling: No Family Present Departure 1 Departure Time of Disposition: 12:39 Impression: Primary Impression: Urinary tract infection Qualified Codes: N30.00 - Acute cystitis without hematuria Additional Impression: Gastritis Qualified Codes: K29.00 - Acute gastritis without bleeding Disposition: 01 HOME / SELF CARE / HOMELESS Condition: Good e-Prescriptions Cephalexin (KEFLEX CAPSULE) 250 Mg Cp 250 MG PO QID for 5 Days, #10 BOTTLE Prov: COSME SANCHEZ MD 12/24/24 Discharged With: Self Critical Care Note Critical Care Time?: No Stability Stability form required: No Heart Score Heart Score: Heart Score Response (Comments) Value History N/A 0 EKG N/A 0 Age N/A 0 Risk Factors N/A 0 Troponin N/A 0 Total 0 I personally scribed for COSME SANCHEZ MD ([email or web address]) on 12/24/24 at 10:15. Electronically submitted by Marine Kimble ([email or web address]). I personally scribed for COSME SANCHEZ MD ([email or web address]) on 12/24/24 at 10:16. Electronically submitted by Marine Kimble ([email or web address]). COSME SANCHEZ MD December 24, 2024 10:15
[2024-12-24 10:38] LABS: Basophils # (auto) 0 10 ^3/uL (0-0.2); Basophils % (auto) 0.7 % (0.0-2.0); Eosinophils # (auto) 0.2 10 ^3/uL (0-0.8); Eosinophils % (auto) 3.2 % (0.0-7.0); Hematocrit 36.2 % (36.0-46.0); Hemoglobin 12.2 g/dL (12.2-16.2); Lymphocytes # (auto) 1.4 10 ^3/uL (0.4-5.4); Lymphocytes % (auto) 19.8 % (10.0-50.0); Mean Corpuscular Hemoglobin 30.3 pg (28.0-32.0); Mean Corpuscular Hgb Conc. 33.7 g/dL (32.0-36.0); Mean Corpuscular Volume 90.1 fL (80.0-100.0); Monocytes # (auto) 0.5 10 ^3/uL (0-1.3); Monocytes % (auto) 6.5 % (0.0-12.0); Neutrophils # (auto) 4.9 10 ^3/uL (1.6-8.6); Neutrophils % (auto) 69.8 % (37.0-80.0); Platelet Count (auto) 215 10^3/uL (140-450); Red Blood Cells 4.02 10^6/uL (4.0-5.20); Red Cell Distribution Width 13.3 % (11.8-14.3)
[2024-12-24 10:40] LABS: Urine Bacteria None Seen /hpf (None Seen)
[2024-12-24 10:43] LABS: Chloride 106 mmol/L (98-107); Sodium 138 mmol/L (136-145)
[2024-12-24 10:44] LABS: Anion Gap 10 (5-15); Carbon Dioxide 22 mmol/L (20-31)
[2024-12-24 10:49] LABS: BUN/Creatinine Ratio 27.4 (10.0-20.0)
[2024-12-24 10:50] LABS: Blood Urea Nitrogen 43 mg/dL (9-23); Calcium 10.5 mg/dL (8.7-10.4); Glucose 265 mg/dL (74-106)
[2024-12-24 11:04] LABS: Urine Blood Negative /uL (Negative); Urine Clarity Clear (Clear); Urine Color Light-Yellow (Yellow); Urine Protein, UAD Negative (Negative); Urine Specific Gravity 1.013 (1.001-1.035); Urine Squamous Epithelial Cell FEW /hpf (<5); Urine Urobilinogen Normal (Negative); Urine WBC 2 /HPF (0-5); Urine pH 5.5 (5.0-9.0)
[2024-12-24 11:44] VITALS: BP 146/86; PULSE 90; RESP 18; TEMP 98.1; O2SAT 97
[2024-12-24] MEDS ORDERED: CEPH250C PO (12:40)
--- NOTE | 2024-12-25 14:53 | ECG ---
[facility] Test Date: 2024-12-24 Test Time: 10:09:10 Pat Name: ANSELMO PAEZ Department: ER Room: Gender: F Camp Coordinator: SIMBA : 1950 Requested By: COSME SANCHEZ Order Number: [id number] Reading MD: Measurements Intervals [place] Rate: 89 P: 9 [place]: 137 QRS: -38 QRSD: 91 T: 36 QT: 376 QTc: 458 Interpretive Statements Sinus rhythm Left axis deviation Low voltage, extremity leads Baseline wander in lead(s) V6 Please click the below link to view image of tracing.
== END 2024-12-24 13:05 | disposition home or self-care (01) ==
LOC: ER 09:28
DX: N39.0 Urinary tract infection, site not specified (principal); K29.70 Gastritis, unspecified, without bleeding; E11.9 Type 2 diabetes mellitus without complications; E78.5 Hyperlipidemia, unspecified; I10 Essential (primary) hypertension; Z79.899 Other long term (current) drug therapy; Z87.442 Personal history of urinary calculi; Z90.710 Acquired absence of both cervix and uterus; Z98.890 Other specified postprocedural states; Z88.1 Allergy status to other antibiotic agents; Z88.2 Allergy status to sulfonamides; Z88.8 Allergy status to other drugs, medicaments and biological substances
CPT/HCPCS: 36415; 80048; 81001; 85025; 93005

== ENCOUNTER 2025-04-27 12:48 | Inpatient (IN) | payer OTHER ==
[~2025-04-27] VITALS: Ht 154.9 cm; Wt 65.5 kg
[~2025-04-27 12:48] MED LIST changes: +CEPH250C PO
--- NOTE | 2025-04-27 13:03 | ED.PDOC ---
History of present illness HPI Comments 74 y/o F, with PMHx of arthritis, DM, GOUT, HLD, HTN, and kidney stones presents to the ED for CC of hyperglycemia. Patient states, she has had high blood sugar readings xmonths. Patient reports, frequent hyperglycemic readings stating "its always high". Upon arrival to the ED, patient's blood sugar read at 454mg/dL. Patient denies nausea, vomiting, dizziness, headache, or blurred vision. No other symptoms or modifying factors are present at this time. Chief Complaint: Hyperglycemia Time Seen by MD: 13:00 Primary Care Provider: DOES NOT KNOW History of present illness: Nurses Notes, Medications, Allergies Allergies: Coded Allergies: Azithromycin (Verified Allergy, Unknown, 12/08/22) Lisinopril (Verified Allergy, Unknown, 12/08/22) Sulfa Antibiotics (Verified Allergy, Unknown, 12/08/22) Home Meds Active Scripts Cephalexin (KEFLEX CAPSULE) 250 Mg Cp, 250 MG PO QID for 5 Days, #10 BOTTLE Prov:COSME SANCHEZ MD 12/24/24 Vancomycin Hcl (Vancomycin Po) 125 Mg So, 125 MG PO QID, #40 ML Prov:MILDRED DÍAZ MD 06/09/24 Cholestyramine (QUESTRAN POWDER) 4 Gm Pw, 4 GM PO DAILY, #40 POW Prov:MILDRED DÍAZ MD 06/09/24 Yeast (S. Boulardii)(S. Cerevi (Florastor) 250 Mg Cap, 250 MG PO DAILY, #30 CAP Prov:MILDRED DÍAZ MD 06/09/24 Lactulose (Lactulose) 10 Gm/15 Ml Sylw[place], 10 GM PO BID PRN, #100 ML Prov:ALFREDO LASSITER DIE SINKER 05/10/23 Tramadol Hcl (Tramadol Hcl) 50 Mg Tab, 50 MG PO Q6HP PRN for 5 Days, #20 TAB Prov:ANGELO VILLATORO MD 12/08/22 Reported Medications Amlodipine Besylate (Amlodipine Besylate) 5 Mg Tab, 1 TAB PO DAILY 06/03/24 Insulin Lispro Protamine & Lis (Humalog Mix 75/25 Kwikpen) 75 Mg/25 Kwp Inj, 10 UNIT SC TID 06/03/24 Gabapentin (Gabapentin) 300 Mg Cap, 1 CAP PO every night PRN 06/02/24 Simvastatin (Simvastatin) 20 Mg Tab, 1 TAB PO 06/02/24 Valsartan (Valsartan) 320 Mg Tab, 1 TAB PO DAILY 06/02/24 Information Source: Patient Mode of Arrival: Ambulatory Timing: Days Duration: Since onset Prehospital treatment: None [place]: None History of: Diabetes, Frequent hyperglycemic Associated signs and symptoms: None Past Medical History PAST MEDICAL HISTORY: Arthritis, DM, Gout, High Lipids, HTN, Kidney Stones Surgical History: Hernia Repair, Hysterectomy, Tonsillectomy 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: 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 VENEER STAPLER Hx Family History Family History: Family hx of DM, Family hx of Cancer, Family hx of heart myriam Social History Smoker: Non-Smoker Alcohol: Denies ETOH Use Drugs: Denies Drug Use Lives In: Home Constitutional: denies: chills, diaphoresis, fatigue, fever, malaise, sweats, weakness, others EENTM: denies: blurred vision, double vision, ear bleeding, ear discharge, ear drainage, ear pain, ear ringing, eye pain, eye redness, hearing loss, mouth pain, mouth swelling, nasal discharge, nose bleeding, nose congestion, nose pain, photophobia, tearing, throat pain, throat swelling, voice changes, others Respiratory: denies: cough, hemoptysis, orthopnea, SOB at rest, shortness of breath, SOB with excertion, stridor, wheezing, others Cardiovascular: denies: chest pain, dizzy spells, diaphoresis, Dyspnea on exertion, edema, irregular heart beat, left arm pain, lightheadedness, palpitations, PND, syncope, others Gastrointestinal: denies: abdomen distended, abdominal pain, blood streaked bowels, constipated, diarrhea, dysphagia, difficulty swallowing, hematemesis, melena, nausea, poor appetite, poor fluid intake, rectal bleeding, rectal pain, vomiting, others Genitourinary: denies: abnormal vagina bleeding, burning, dyspareunia, dysuria, flank pain, frequency, hematuria, incontinence, pain, , vagina discharge, urgency, others Neurological: denies: dizziness, fainting, headache, left sided numbness, left sided weakness, numbness, paresthesia, pre-existing deficit, right sided numbness, right sided weakness, seizure, speech problems, tingling, tremors, weakness, others Musculoskeletal: denies: back pain, gout, joint pain, joint swelling, muscle pain, muscle stiffness, neck pain, others Integumetry: denies: bruises, change in color, change in hair/nails, dryness, laceration, lesions, lumps, rash, wounds, others Allergic/Immunocompromised: denies: Difficulty Healing, Frequent Infections, Hives, Itching, others Hematologic/Lymphatic: denies: anemia, blood clots, easy bleeding, easy bruising, swollen glands, others Endocrine: denies: excessive hunger, excessive sweating, excessive thirst, excessive urination, flushing, intolerance to cold, intolerance to heat, unexplained weight gain, unexplained weight loss, others Psychiatric: denies: anxiety, bipolar disorder, depression, hopeless, panic disorder, schizophrenia, sleepless, suicidal, others All Other Systems: Reviewed and Negative Physical Exam General Appearance: Moderate Distress HEENT: Normal ENT Inspection, Pharynx Normal, TMs Normal Neck: Full Range of Motion, Non-Tender, Normal, Normal Inspection Respiratory: Chest Non-Tender, Lungs Clear, No Accessory Muscle Use, No Respiratory Distress, Normal Breath Sounds Cardiovascular: No Edema, No JVD, No Murmur, No Gallop, Normal Peripheral Pulses, Regular Rate/Rhythm Breast Exam: Deferred Gastrointestinal: No Organomegaly, Non Tender, No Pulsatile Mass, Normal Bowel Sounds, Soft Genitalia: Deferred Pelvic: Deferred Rectal: Deferred Extremities: Swelling (Left elbows) Musculoskeletal : Apperance: Normal Neurologic: Alert Cerebellar Function: Normal Reflexes: NOT DONE Skin: Normal Color Peripheral Pulses: 3+ Radial (R), 3+ Radial (L) Lymphatic: No Adenopathy Was a procedure done? Was a procedure done?: No Differential Diagnosis (DM) Differential Diagnosis: Hyperglycemia X-Ray, Labs, Meds, VS Vital Signs Date Time Temp Pulse Resp B/P (MAP) Pulse Ox O2 Delivery O2 Flow Rate FiO2 04/27/25 15:22 115/47 04/27/25 14:56 18 97 Room Air* 0 21 04/27/25 14:15 97.9 88 24 126/103 (111) 97 97.9 04/27/25 14:15 88 24 97 Room Air* 0 21 04/27/25 13:56 98.7 83 16 109/45 (66) 92 98.7 04/27/25 13:52 83 18 92 Room Air* 0 21 04/27/25 12:51 98.5 88 19 111/49 99 98.5 Lab Test 04/27/25 15:17 04/27/25 14:05 04/27/25 13:27 04/27/25 13:13 Range/Units POC Glucose 164 H 449 *H 70-106 mg/dl Urine Color Yellow Yellow Urine Clarity Clear Clear Urine pH 5.0 5.0-9.0 Urine Specific [place] 1.015 1.001-1.035 Urine Protein Trace H Negative Urine Ketones Negative Negative Urine Blood Negative Negative /uL Urine Nitrite Negative Negative Urine Bilirubin Negative Negative Urine Urobilinogen Normal Negative mg/dL Urine Leukocyte Esterase 1+ Negative /uL Urine RBC 2 0 - 4 /hpf Urine Microscopic WBC 4 0-5 /HPF Urine Squamous Epithelial Cells Few <5 /hpf Urine Bacteria None seen None Seen /hpf Urine Glucose 3+ H Normal mg/dL Sodium Level 132 L 136-145 mmol/L Potassium Level 5.6 *H 3.5-5.1 mmol/L Chloride Level 100 98-107 mmol/L Carbon Dioxide Level 21 20-31 mmol/L Anion Gap 11 5-15 Blood Urea Nitrogen 68 H 9-23 mg/dL Creatinine 2.36 H 0.550-1.02 mg/dL Glomerular Filtration Rate Calc 21 >90 mL/min BUN/Creatinine Ratio 28.8 H 10.0-20.0 Serum Glucose 469 *H 74-106 mg/dL Hemoglobin A1c 9.2 H <5.7 % A1C Calcium Level 8.3 L 8.7-10.4 mg/dL Current Medications Medications (Trade) Dose Ordered Sig/Jacquelyn Route Start Time Stop Time Status Last Admin Sodium Chloride 1,000 ml @ 1,000 mls/hr Q1H ONCE IV 04/27/25 13:00 04/27/25 13:59 DC 04/27/25 13:32 Insulin Human Regular (InsuLIN R) 10 units ONCE ONCE IV 04/27/25 13:00 04/27/25 13:01 DC 04/27/25 13:35 Albuterol (Ventolin Medneb) 20 mg ONCE ONCE NEB 04/27/25 14:45 04/27/25 14:46 DC 04/27/25 14:56 Sodium Bicarbonate 50 ml ONCE ONCE IV 04/27/25 14:45 04/27/25 14:46 DC 04/27/25 15:22 Furosemide (Lasix Injection) 20 mg ONCE ONCE IV 04/27/25 14:45 04/27/25 14:46 DC 04/27/25 15:22 Calcium Gluconate/ Sodium Chloride 50 ml @ 120 mls/hr ONCE ONCE IV 04/27/25 14:45 04/27/25 15:09 DC 04/27/25 15:00 Zirconium Oxide (Lokelma) 10 gm ONCE ONCE PO 04/27/25 14:45 04/27/25 14:46 DC 04/27/25 15:19 [place] [id number] Ph: [phone] DIAGNOSTIC IMAGING Diagnostic Imaging Report : [id number] Signed PATIENT: ANSELMO PAEZ ACCT: [id number] UNIT: [id number] : 1950 LOC: ER ROOM / BED: / AGE / SEX: 74 / F ADM STATUS: REG ER SERVICE 1343 ORDERING PHYSICIAN: COSME SANCHEZ MD PROCEDURE(s): LELB - L ELBOW 2 VIEW XRAY REASON: cellulitis ORDER NUMBER(s): [id number], ACCESSION NUMBER(s): [id number] XY L ELBOW 2 VIEW XRAY, INDICATION: cellulitis TECHNICAL DATA: Frontal, and lateral views were obtained of the left elbow. COMPARISON: None FINDINGS: No fracture is identified. Joint spaces are maintained. Alignment at the joint is anatomic. Soft tissues are swollen. Possible joint effusion is demonstrated. IMPRESSION: Posterior elbow and forearm soft tissue edema with small joint effusion suspected. No acute fracture or dislocation of the left elbow. ATED BY: KAVEH MCLAUGHLIN MD DICTATED DATE/TIME: 04/27/251418 SIGNED BY: KAVEH MCLAUGHLIN MD SIGNED DATE/TIME: 04/27/251418 CC: Patient alert. Came in from clinic. X-ray of the elbow does show swelling. Vitals stable. Blood sugar elevated. Establish intravenous access. Was given fluids. Potassium elevated. Was given hyperkalemia treatment. UA shows UTI. Spoke with choice physician. Continue monitoring. Time of 1ST Reevaluation: 13:30 Reevaluation 1ST: Unchanged Patient Education/Counseling: Diagnosis, Treatment Family Education/Counseling: Diagnosis, Treatment SEPSIS Sepsis Screen Date sepsis recognized/suspect: Apr 27, 2025 Time Sepsis recognized/suspect: 1251 Recent Procedure: No Respiratory Rate >20: No Heart Rate >90: No Temp<36 C (96.8 F) or >38.3 C: No SBP <90 or MAP <65 mmHG: No New Acute Mental Status Change: No Is the patient on CPAP, BIPAP,: No Physician Orders L Elbow 2 View Xray (04/27/25 13:43) Vital Signs Date Time Temp Pulse Resp B/P (MAP) Pulse Ox O2 Delivery O2 Flow Rate FiO2 04/27/25 15:22 115/47 04/27/25 14:56 18 97 Room Air* 0 21 04/27/25 14:15 97.9 88 24 126/103 (111) 97 97.9 04/27/25 14:15 88 24 97 Room Air* 0 21 04/27/25 13:56 98.7 83 16 109/45 (66) 92 98.7 04/27/25 13:52 83 18 92 Room Air* 0 04/27/25 12:51 98.5 88 19 111/49 99 98.5 Medications Medications Dose Ordered Sig/Jacquelyn Route Start Time Stop Time Status Last Admin Dose Admin Albuterol 20 mg ONCE ONCE NEB 04/27/25 14:45 04/27/25 14:46 DC 04/27/25 14:56 Calcium Gluconate/ Sodium Chloride 50 ml @ 120 mls/hr ONCE ONCE IV 04/27/25 14:45 04/27/25 15:09 DC 04/27/25 15:00 Furosemide 20 mg ONCE ONCE IV 04/27/25 14:45 04/27/25 14:46 DC 04/27/25 15:22 Insulin Human Regular 10 units ONCE ONCE IV 04/27/25 13:00 04/27/25 13:01 DC 04/27/25 13:35 Sodium Bicarbonate 50 ml ONCE ONCE IV 04/27/25 14:45 04/27/25 14:46 DC 04/27/25 15:22 Sodium Chloride 1,000 ml @ 1,000 mls/hr Q1H ONCE IV 04/27/25 13:00 04/27/25 13:59 DC 04/27/25 13:32 Zirconium Oxide 10 gm ONCE ONCE PO 04/27/25 14:45 04/27/25 14:46 DC 04/27/25 15:19 Departure 1 Departure Time of Disposition: 17:38 Impression: Primary Impression: Uncontrolled diabetes mellitus Qualified Codes: E13.65 - Other specified diabetes mellitus with hyperglycemia Additional Impressions: Cellulitis Qualified Codes: L03.114 - Cellulitis of left upper limb Hyperkalemia UTI (urinary tract infection) Qualified Codes: N30.00 - Acute cystitis without hematuria Disposition: ADMITTED INPATIENT Admit to: Med Surg Condition: Guarded Critical Care Note Critical Care Time?: No Stability Stability form required: No Heart Score Heart Score: Heart Score Response (Comments) Value History N/A 0 EKG N/A 0 Age N/A 0 Risk Factors N/A 0 Troponin N/A 0 Total 0 I personally scribed for COSME SANCHEZ MD ([email or web address]) on 04/27/25 at 13:03. Electronically submitted by Marine Kimble ([employer] [place]). I personally scribed for COSME SANCHEZ MD ([email or web address]) on 04/27/25 at 13:08. Electronically submitted by Marine Kimble ([employer] [place]). I personally scribed for COSME SANCHEZ MD ([email or web address]) on 04/27/25 at 15:15. Electronically submitted by Marine Kimble ([employer] [place]). COSME SANCHEZ MD Apr 27, 2025 13:03
[2025-04-27] MEDS: SODIUM CHLORIDE 0.9% 1,000 ML IV ONE (13:32)
[2025-04-27] MEDS: InsuLIN REG 1unit/0.01ml Soln (100units/ml) IV ONE ×2 (13:35→15:41)
[2025-04-27 13:36] LABS: Chloride 100 mmol/L (98-107)
[2025-04-27 13:37] LABS: Anion Gap 11 (5-15); Carbon Dioxide 21 mmol/L (20-31)
[2025-04-27 13:42] LABS: BUN/Creatinine Ratio 28.8 (10.0-20.0)
[2025-04-27 13:51] LABS: Sodium 132 mmol/L (136-145)
[2025-04-27 13:52] VITALS: PULSE 83; RESP 18; O2SAT 92
[2025-04-27 13:52] LABS: Blood Urea Nitrogen 68 mg/dL (9-23); Calcium 8.3 mg/dL (8.7-10.4)
[2025-04-27 13:53] LABS: Glucose 469 mg/dL (74-106); Potassium 5.6 mmol/L (3.5-5.1)
[2025-04-27 14:15] VITALS: PULSE 88; RESP 24; O2SAT 97
--- NOTE | 2025-04-27 14:21 | DVH ---
XY L ELBOW 2 VIEW XRAY, INDICATION: cellulitis TECHNICAL DATA: Frontal, and lateral views were obtained of the left elbow. COMPARISON: None FINDINGS: No fracture is identified. Joint spaces are maintained. Alignment at the joint is anatomic. Soft tiss ues are swollen. Possible joint effusion is demonstrated. IMPRESSION: Posterior elbow and forearm soft tissue edema with small joint effusion suspected. No acute fracture or dislocation of the left elbow.
[2025-04-27 14:29] LABS: Urine Protein, UAD TRACE (Negative)
[2025-04-27] MEDS: ALBUTEROL SULF 2.5 MG/0.5ML(0.5%) NEB SOLN NEB ONE (14:56)
[2025-04-27] MEDS: CALCIUM GLUC 1,000mg/50ml-NS 50 ML IV ONE (15:00)
[2025-04-27] MEDS: SODIUM ZIRCONIUM CYCL 10 GM PAK PO ONE (15:19)
[2025-04-27] MEDS: FUROSEMIDE 20 MG/2 ML VIAL IV ONE (15:22)
[2025-04-27] MEDS: SODIUM BICARB 8.4% 50Meq/50ml SYR INJ IV ONE (15:22)
[2025-04-27] MEDS: DEXTROSE (50%) 50ML SYRG IV ONE (15:41)
[2025-04-27] MEDS ORDERED: MORPHINE SULFATE 4 MG/ML SYR/VIAL IV PRN (16:45)
[2025-04-27] MEDS ORDERED: MORPHINE SULFATE INJ 2 MG/ml SYRG IV PRN (16:45)
[2025-04-27] MEDS ORDERED: ACETAMINOPHEN 325 MG TAB PO PRN (16:45)
[2025-04-27] MEDS ORDERED: NITROGLYCERIN 0.4 MG SL TAB SL PRN (16:45)
[2025-04-27] MEDS ORDERED: DOCUSATE SOD 100 MG CAP PO PRN (16:45)
--- NOTE | 2025-04-27 16:55 | DVHHP2 ---
History of Present Illness Reason for Visit: Patient was sent by urgent Care choice for high blood sugars and left History of Present Illness 74-year-old female with a known history of insulin-dependent diabetes mellitus type 2 currently only on short-acting insulin, dyslipidemia, hypertension who initially presented to the hospital as she was sent by urgent care choice. Patient was seen in urgent Care choice for left elbow cellulitis found to have h igh blood sugar between 400-500. Patient did admit that she has high blood sugar 4 months as sometimes her reading at home reads very high. Patient was found to have uncontrolled hyperglycemia in the setting of diabetes mellitus type 2 insulin-dependent. Patient is currently denies any fevers chills denies any elbow pain. In the ER patient was found to have a potassium of 5.6 which was treated with the medical treatment repeat BMP is pending at the time of dictation of H and P. Cardiovascular: HTN, hyperipidemia Endocrine: Diabetes Past Surgical History: Hysterectomy, Total knee replacement Family History: None Smoke: No ALCOHOL: none Review of Systems Review of Systems Twelve review of system are negative besides mentioned above. Allergies: Coded Allergies: Azithromycin (Verified Allergy, Unknown, 12/08/22) Lisinopril (Verified Allergy, Unknown, 12/08/22) Sulfa Antibiotics (Verified Allergy, Unknown, 12/08/22) Medications Current Medications Medications Dose Ordered Sig/Jacquelyn Route Start Time Stop Time Status Last Admin Dose Admin Acetaminophen/ Hydrocodone Bitart 1 tab Q4HP PRN PO 04/27/25 16:45 Ondansetron HCl 4 mg Q4HP PRN IV 04/27/25 16:45 Docusate Sodium 100 mg BIDPRN PRN PO 04/27/25 16:45 Enoxaparin Sodium 30 mg DAILY SC 04/28/25 10:00 Acetaminophen 650 mg Q6HP PRN PO 04/27/25 16:45 Morphine Sulfate 2 mg Q4HPRN PRN IV 04/27/25 16:45 Nitroglycerin 0.4 mg Q5MINP PRN SL 04/27/25 16:45 Morphine Sulfate 2 mg Q30M PRN IV 04/27/25 16:45 Ceftriaxone Sodium 50 ml @ 100 mls/hr DAILY@09 IV 04/27/25 16:45 Doxycycline Hyclate 100 ml @ 50 mls/hr Q12H IV 04/27/25 16:45 Exam Vital Signs Vital Signs Date Time Temp Pulse Resp B/P (MAP) Pulse Ox O2 Delivery O2 Flow Rate FiO2 04/27/25 15:22 115/47 04/27/25 14:56 18 97 Room Air* 0 21 04/27/25 14:15 97.9 88 97.9 Exam HEENT pupils are reactive Neck is supple CV is S1-S2 regular rate and rhythm Respiratory diminished breath sounds bases GI positive bowel sound 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 Labs/Xrays Labs Test 04/27/25 15:17 04/27/25 14:05 04/27/25 13:13 Range/Units POC Glucose 164 H 70-106 mg/dl Urine Color Yellow Yellow Urine Clarity Clear Clear Urine pH 5.0 5.0-9.0 Urine Specific [place] 1.015 1.001-1.035 Urine Protein Trace H Negative Urine Ketones Negative Negative Urine Blood Negative Negative /uL Urine Nitrite Negative Negative Urine Bilirubin Negative Negative Urine Urobilinogen Normal Negative mg/dL Urine Leukocyte Esterase 1+ Negative /uL Urine RBC 2 0 - 4 /hpf Urine Microscopic WBC 4 0-5 /HPF Urine Squamous Epithelial Cells Few <5 /hpf Urine Bacteria None seen None Seen /hpf Urine Glucose 3+ H Normal mg/dL Sodium Level 132 L 136-145 mmol/L Potassium Level 5.6 *H 3.5-5.1 mmol/L Chloride Level 100 98-107 mmol/L Carbon Dioxide Level 21 20-31 mmol/L Anion Gap 11 5-15 Blood Urea Nitrogen 68 H 9-23 mg/dL Creatinine 2.36 H 0.550-1.02 mg/dL Glomerular Filtration Rate Calc 21 >90 mL/min BUN/Creatinine Ratio 28.8 H 10.0-20.0 Serum Glucose 469 *H 74-106 mg/dL Calcium Level 8.3 L 8.7-10.4 mg/dL SEPSIS Sepsis Screen Date sepsis recognized/suspect: Apr 27, 2025 Time Sepsis recognized/suspect: 1414 Recent Procedure: No On Antibiotic Therapy: No Respiratory Rate >20: Yes Heart Rate >90: No Temp<36 C (96.8 F) or >38.3 C: No SBP <90 or MAP <65 mmHG: No New Acute Mental Status Change: No Is the patient on CPAP, BIPAP,: No Physician Orders L Elbow 2 View Xray (04/27/25 13:43) Admit (04/27/25 16:34) Code Status (04/27/25 16:34) Renal Standard(2gna,3gk,Lopho) (04/27/25 Dinner) Hydrocodone-Acet 5/325mg Tab ([place] 5/32 (04/27/25 16:45) Ondansetron Hcl (Zofran) (04/27/25 16:45) Docusate Sodium Capsule (Colace Capsule) (04/27/25 16:45) Fall Risk Precautions In Place QSHIFT (04/27/25 16:34) Complete Blood Count (04/28/25 04:00) Comprehensive Metabolic Panel (04/28/25 04:00) Pt Request For Service (04/27/25 16:34) Enoxaparin Sodium (Lovenox) (04/28/25 10:00) Acetaminophen Tablet (Tylenol Tablet) (04/27/25 16:45) Nitroglycerin Sublingual (Ntrostat Subli (04/27/25 16:45) Morphine Sulfate Injection (04/27/25 16:45) Stat Ekg For Chest Pain (04/27/25 16:34) Notify Md Of Changes From Base (04/27/25 16:34) Car Ferry Captain For 24 Hours (04/27/25 16:34) Emergency Dysrhythmia Protocol (04/27/25 16:34) Rhythm Strips Once Every Shift (04/27/25 16:34) Oxygen By Nasal Cannula (04/27/25 16:34) Ceftriaxone 1gm/50ml (Rocephin) (04/27/25 16:45) Doxycycline 100mg/100ml (Vibramycin) (04/27/25 16:45) Potassium (04/27/25 18:00) Communication Order (04/27/25 16:41) Morphine Sulfate Injection (04/27/25 16:45) Hemoglobin A1c (04/27/25 16:50) Glucose Blood (Accu-Chek Comfort Curve T (04/27/25 17:00) Bedtime Insulin Scale (04/27/25 22:00) Moderate Insulin Ss (04/27/25 17:00) Dextrose 50% Syringe (04/27/25 17:00) Vital Signs Date Time Temp Pulse Resp B/P (MAP) Pulse Ox O2 Delivery O2 Flow Rate FiO2 04/27/25 15:22 115/47 04/27/25 14:56 18 97 Room Air* 0 21 04/27/25 14:15 97.9 88 24 126/103 (111) 97 97.9 04/27/25 14:15 88 24 97 Room Air* 0 21 04/27/25 13:56 98.7 83 16 109/45 (66) 92 98.7 04/27/25 13:52 83 18 92 Room Air* 0 04/27/25 12:51 98.5 88 19 111/49 99 98.5 Medications Medications Dose Ordered Sig/Jacquelyn Route Start Time Stop Time Status Last Admin Dose Admin Albuterol 20 mg ONCE ONCE NEB 04/27/25 14:45 04/27/25 14:46 DC 04/27/25 14:56 20 MG Calcium Gluconate/ Sodium Chloride 50 ml @ 120 mls/hr ONCE ONCE IV 04/27/25 14:45 04/27/25 15:09 DC 04/27/25 15:00 120 MLS/HR Furosemide 20 mg ONCE ONCE IV 04/27/25 14:45 04/27/25 14:46 DC 04/27/25 15:22 20 MG Insulin Human Regular 10 units ONCE ONCE IV 04/27/25 13:00 04/27/25 13:01 DC 04/27/25 13:35 10 UNITS Sodium Bicarbonate 50 ml ONCE ONCE IV 04/27/25 14:45 04/27/25 14:46 DC 04/27/25 15:22 50 ML Sodium Chloride 1,000 ml @ 1,000 mls/hr Q1H ONCE IV 04/27/25 13:00 04/27/25 13:59 DC 04/27/25 13:32 1,000 MLS/HR Zirconium Oxide 10 gm ONCE ONCE PO 04/27/25 14:45 04/27/25 14:46 DC 04/27/25 15:19 10 GM Assessment/Plan Assessment/Plan 74-year-old female with a known history of diabetes mellitus type 2, hypertension, dyslipidemia who was seen in urgent Care for left elbow cellulitis and high blood sugar found to have 1. Hyperkalemia suspect valsartan induced 2. Uncontrolled hyperglycemia in the setting of insulin-dependent diabetes mellitus type 2 3. Left elbow cellulitis 4. Insulin-dependent diabetes mellitus type 2 currently hyperglycemic 5. Hypertension 6. Dyslipidemia 7. Acute kidney injury suspected secondary to vasomotor nephropathy -patient is status post hyperkalemia treatment, repeat BMP, IV antibiotics, hold valsartan -moderate dose insulin sliding scale, check hemoglobin A1c. Plan discussed with: Patient My Orders Orders - CAIT BOBBY MD Procedure Category Date Status Time Admit ADMIT 04/27/25 Transmitted 16:34 Code Status CODE 04/27/25 Transmitted 16:34 Renal DIET 04/27/25 Transmitted Standard(2gna,3gk,Lopho) Dinner Hydrocodone-Acet PHA 04/27/25 In Process 5/325mg Tab ([place] 16:45 Ondansetron Hcl PHA 04/27/25 In Process (Zofran) 16:45 Docusate Sodium PHA 04/27/25 In Process Capsule (Colace 16:45 Fall Risk Precautions KAY 04/27/[address] 16:34 Complete Blood Count LAB 04/28/25 Verified 04:00 Comprehensive LAB 04/28/25 Verified Metabolic Panel 04:00 Pt Request For Service PT 04/27/25 Logged 16:34 Enoxaparin Sodium PHA 04/28/25 In Process (Lovenox) 10:00 Acetaminophen Tablet PHA 04/27/25 In Process (Tylenol Tablet) 16:45 Nitroglycerin PHA 04/27/25 In Process Sublingual (Ntrostat 16:45 Morphine Sulfate PHA 04/27/25 In Process Injection 16:45 Stat Ekg For Chest KAY 04/27/25 In Process Pain 16:34 Notify Of Changes KAY 04/27/25 In Process From Base 16:34 Car Ferry Captain For KAY 04/27/25 In Process 24 Hours 16:34 Emergency Dysrhythmia KAY 04/27/25 In Process Protocol 16:34 Rhythm Strips Once KAY 04/27/25 In Process Every Shift 16:34 Oxygen By Nasal RT 04/27/25 Transmitted Cannula 16:34 Ceftriaxone 1gm/50ml PHA 04/27/25 In Process (Rocephin) 16:45 Doxycycline PHA 04/27/25 In Process 100mg/100ml 16:45 Potassium LAB 04/27/25 Logged 18:00 Communication Order ORDERS 04/27/25 Transmitted 16:41 Morphine Sulfate PHA 04/27/25 In Process Injection 16:45 Hemoglobin A1c LAB 04/27/25 Transmitted 16:50 Glucose Blood PHA 04/27/25 Verified (Accu-Chek Comfort 17:00 Bedtime Insulin Scale PHA 04/27/25 Verified 22:00 Moderate Insulin Ss PHA 04/27/25 Verified 17:00 Dextrose 50% Syringe PHA 04/27/25 Verified 17:00 Date of Service: Apr 27, 2025 Billing Provider: CAIT BOBBY MD Common Visit Codes: NOT BILLABLE CAIT BOBBY MD Apr 27, 2025 16:55
[2025-04-27] MEDS ORDERED: DEXTROSE (50%) 50ML SYRG IV PRN (17:00)
[2025-04-27] MEDS: InsuLIN REG 1unit/0.01ml Soln (100units/ml) SC SCH ×2 (17:13→22:31)
[2025-04-27] MEDS: ACCU-CHEK COMFORT CURVE STRIP VI SCH (17:13)
[2025-04-27] MEDS: ONDANSETRON HCL 4 MG/2 ML VIAL IV PRN (17:40)
[2025-04-27] MEDS: DOXYCYCLINE 100MG/100ML 100 ML IV SCH (18:02)
[2025-04-27 18:12] LABS: Chloride 100 mmol/L (98-107); Potassium 4.4 mmol/L (3.5-5.1)
[2025-04-27 18:13] LABS: Anion Gap 16 (5-15); Calcium 8.9 mg/dL (8.7-10.4); Carbon Dioxide 20 mmol/L (20-31)
[2025-04-27 18:18] LABS: BUN/Creatinine Ratio 26.8 (10.0-20.0)
[2025-04-27 18:21] LABS: Blood Urea Nitrogen 59 mg/dL (9-23); Glucose 290 mg/dL (74-106); Sodium 136 mmol/L (136-145)
[2025-04-27 19:30] VITALS: PULSE 106; RESP 20; O2SAT 96
[2025-04-27 23:33] VITALS: BP 100/46; PULSE 90; RESP 22; RESP 25; O2SAT 96
[2025-04-28] VITALS (8 sets, daily range): BP systolic 96–125; BP diastolic 35–66; PULSE 76–95; RESP 16–24; TEMP 97.7–98.3; O2SAT 95–100
[2025-04-28 04:44] LABS: Hematocrit 23.3 % (36.0-46.0); Hemoglobin 7.9 g/dL (12.2-16.2); Mean Corpuscular Hemoglobin 30.1 pg (28.0-32.0); Mean Corpuscular Volume 89.1 fL (80.0-100.0); Nucleated Red Blood Cells % 0.0 %
[2025-04-28 05:00] LABS: Alanine Aminotransferase 23 U/L (7-40); Anion Gap 11 (5-15); Carbon Dioxide 22 mmol/L (20-31); Chloride 100 mmol/L (98-107); Potassium 4.9 mmol/L (3.5-5.1)
[2025-04-28 05:01] LABS: Albumin 3.2 g/dL (3.2-4.8); BUN/Creatinine Ratio 24.1 (10.0-20.0)
[2025-04-28 05:05] LABS: Alkaline Phosphatase 352 U/L (46-116); Bilirubin, Total 0.2 mg/dL (0.2-1.0); Blood Urea Nitrogen 57 mg/dL (9-23); Calcium 8.1 mg/dL (8.7-10.4); Glucose 282 mg/dL (74-106); Sodium 133 mmol/L (136-145); Total Protein 5.4 g/dL (5.7-8.2)
[2025-04-28] MEDS: ENOXAPARIN SOD 30 MG/0.3 ML SYRINGE SC SCH (10:46)
[2025-04-28] MEDS: INSULIN LANTUS (GLARGINE) 1 /0.01ml (100units/ml) SC SCH (14:30)
--- NOTE | 2025-04-28 15:54 | DVHPN2 ---
Subjective Overnight events noted patient's blood sugars are between 250-300, hemoglobin A1c is>9. 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 Medications Current Medications Medications Dose Ordered Sig/Jacquelyn Route Start Time Stop Time Status Last Admin Dose Admin Acetaminophen/ Hydrocodone Bitart 1 tab Q4HP PRN PO 04/27/25 16:45 Ondansetron HCl 4 mg Q4HP PRN IV 04/27/25 16:45 04/27/25 17:40 4 MG Docusate Sodium 100 mg BIDPRN PRN PO 04/27/25 16:45 Enoxaparin Sodium 30 mg DAILY SC 04/28/25 10:00 04/28/25 10:46 30 MG Acetaminophen 650 mg Q6HP PRN PO 04/27/25 16:45 Morphine Sulfate 2 mg Q4HPRN PRN IV 04/27/25 16:45 Nitroglycerin 0.4 mg Q5MINP PRN SL 04/27/25 16:45 Morphine Sulfate 2 mg Q30M PRN IV 04/27/25 16:45 Ceftriaxone Sodium 50 ml @ 100 mls/hr DAILY@09 IV 04/27/25 16:45 04/28/25 09:14 100 MLS/HR Doxycycline Hyclate 100 ml @ 50 mls/hr Q12H IV 04/27/25 16:45 04/28/25 05:05 50 MLS/HR Diagnostic Test (Pha) 1 strip ACHS 04/27/25 17:00 04/28/25 11:43 1 STRIP Insulin Human Regular HS SC 04/27/25 22:00 04/27/25 22:31 10 UNITS Insulin Human Regular AC SC 04/27/25 17:00 04/28/25 11:46 3 UNITS Dextrose 50 ml UD PRN IV 04/27/25 17:00 Insulin Glargine 15 units QAM SC 04/28/25 14:30 Laboratory Results Laboratory Tests 04/28/25 03:43 Chemistry Test 04/27/25 17:52 04/28/25 03:43 Calcium Level 8.9 mg/dL (8.7-10.4) 8.1 mg/dL (8.7-10.4) L Albumin 3.2 g/dL (3.2-4.8) Total Protein 5.4 g/dL (5.7-8.2) L LFT Test 04/28/25 03:43 Alanine Aminotransferase (ALT) 23 U/L (7-40) Alkaline Phosphatase 352 U/L (46-116) H Aspartate Amino Transferase (AST) 38 U/L (13-40) Total Bilirubin 0.2 mg/dL (0.2-1.0) Urinalysis Test 04/27/25 14:05 Urine Color Yellow (Yellow) Urine Clarity Clear (Clear) Urine pH 5.0 (5.0-9.0) Urine Specific [place] 1.015 (1.001-1.035) Urine Protein Trace (Negative) H Urine Ketones Negative (Negative) Urine Blood Negative /uL (Negative) Urine Nitrite Negative (Negative) Urine Bilirubin Negative (Negative) Urine Urobilinogen Normal mg/dL (Negative) Urine Leukocyte Esterase 1+ /uL (Negative) Urine RBC 2 /hpf (0 - 4) Urine Microscopic WBC 4 /HPF (0-5) Urine Squamous Epithelial Cells Few /hpf (<5) Urine Bacteria None seen /hpf (None Seen) Urine Glucose 3+ mg/dL (Normal) H Assessment/Plan Assessment/Plan 74-year-old female with a known history of diabetes mellitus type 2, hypertension, dyslipidemia who was seen in urgent Care for left elbow cellulitis and high blood sugar found to have 1. Hyperkalemia suspect valsartan induced, resolved 2. Uncontrolled hyperglycemia in the setting of insulin-dependent diabetes mellitus type 2, improving 3. Left elbow cellulitis 4. Insulin-dependent diabetes mellitus type 2 currently hyperglycemic 5. Hypertension 6. Dyslipidemia 7. Acute kidney injury suspected secondary to vasomotor nephropathy - IV antibiotics, start long-acting insulin Lantus -moderate dose insulin sliding scale, keep holding valsartan. Plan discussed with: Patient My Orders Orders - CAIT BOBBY MD Procedure Category Date Status Time Admit ADMIT 04/27/25 Transmitted 16:34 Code Status CODE 04/27/25 Transmitted 16:34 Renal DIET 04/27/25 Transmitted Standard(2gna,3gk,Lopho) Dinner Hydrocodone-Acet PHA 04/27/25 In Process 5/325mg Tab ([place] 16:45 Ondansetron Hcl PHA 04/27/25 In Process (Zofran) 16:45 Docusate Sodium PHA 04/27/25 In Process Capsule (Colace 16:45 Fall Risk Precautions KAY 04/27/[address] 16:34 Pt Request For Service PT 04/27/25 Logged 16:34 Enoxaparin Sodium PHA 04/28/25 In Process (Lovenox) 10:00 Acetaminophen Tablet PHA 04/27/25 In Process (Tylenol Tablet) 16:45 Nitroglycerin PHA 04/27/25 In Process Sublingual (Ntrostat 16:45 Morphine Sulfate PHA 04/27/25 In Process Injection 16:45 Stat Ekg For Chest KAY 04/27/25 In Process Pain 16:34 Notify Of Changes KAY 04/27/25 In Process From Base 16:34 Criminal Justice Faculty For KAY 04/27/25 In Process 24 Hours 16:34 Emergency Dysrhythmia KAY 04/27/25 In Process Protocol 16:34 Rhythm Strips Once KAY 04/27/25 In Process Every Shift 16:34 Oxygen By Nasal RT 04/27/25 Transmitted Cannula 16:34 Ceftriaxone 1gm/50ml PHA 04/27/25 In Process (Rocephin) 16:45 Doxycycline PHA 04/27/25 In Process 100mg/100ml 16:45 Communication Order ORDERS 04/27/25 Transmitted 16:41 Morphine Sulfate PHA 04/27/25 In Process Injection 16:45 Glucose Blood PHA 04/27/25 In Process (Accu-Chek Comfort 17:00 Insulin R (Human) PHA 04/27/25 In Process (Insulin R) 22:00 Insulin R (Human) PHA 04/27/25 In Process (Insulin R) 17:00 Dextrose 50% Syringe PHA 04/27/25 In Process 17:00 Insulin Lantus PHA 04/28/25 In Process (Glargine) (Lantus) 14:30 Insulin Lantus PHA 04/28/25 In Process (Glargine) (Lantus) 18:00 Date of Service: Apr 28, 2025 Billing Provider: CAIT BOBBY MD Common Visit Codes: NOT BILLABLE CAIT BOBBY MD Apr 28, 2025 15:54
[2025-04-28] MEDS ORDERED: INSULIN LANTUS (GLARGINE) 1 /0.01ml (100units/ml) SC SCH (18:00)
[2025-04-28] MEDS: INSULIN LANTUS (GLARGINE) 1 /0.01ml (100units/ml) SC ONE (18:28)
[2025-04-28] MEDS: HYDROcodone-ACET 5/325MG TAB PO PRN (21:22)
[2025-04-29] VITALS (7 sets, daily range): BP systolic 102–143; BP diastolic 47–74; PULSE 65–81; RESP 17–18; TEMP 36.9; O2SAT 96–100
--- NOTE | 2025-04-29 13:57 | DVHDS2 ---
Discharge Summary Date of Admission Apr 27, 2025 at 16:34 Date of Discharge: Apr 29, 2025 Labs/Diagnostic Data: Laboratory Results Test 04/29/25 11:46 04/28/25 03:43 04/27/25 14:05 04/27/25 13:13 POC Glucose 152 mg/dl (70-106) White Blood Count 5.8 10^3/uL (4.4-10.8) Red Blood Count 2.61 10^6/uL (4.0-5.20) Hemoglobin 7.9 g/dL (12.2-16.2) Hematocrit 23.3 % (36.0-46.0) Mean Corpuscular Volume 89.1 fL (80.0-100.0) Mean Corpuscular Hemoglobin 30.1 pg (28.0-32.0) Mean Corpuscular Hemoglobin Concent 33.8 g/dL (32.0-36.0) Red Cell Distribution Width 12.9 % (11.8-14.3) Platelet Count 224 10^3/uL (140-450) Mean Platelet Volume 7.6 fL (6.9-10.8) Neutrophils (%) (Auto) 67.6 % (37.0-80.0) Lymphocytes (%) (Auto) 18.8 % (10.0-50.0) Monocytes (%) (Auto) 10.8 % (0.0-12.0) Eosinophils (%) (Auto) 1.9 % (0.0-7.0) Basophils (%) (Auto) 0.9 % (0.0-2.0) Neutrophils # (Auto) 3.9 10 ^3/uL (1.6-8.6) Lymphocytes # (Auto) 1.1 10 ^3/uL (0.4-5.4) Monocytes # (Auto) 0.6 10 ^3/uL (0-1.3) Eosinophils # (Auto) 0.1 10 ^3/uL (0-0.8) Basophils # (Auto) 0.1 10 ^3/uL (0-0.2) Nucleated Red Blood Cells 0.0 % Sodium Level 133 mmol/L (136-145) Potassium Level 4.9 mmol/L (3.5-5.1) Chloride Level 100 mmol/L (98-107) Carbon Dioxide Level 22 mmol/L (20-31) Anion Gap 11 (5-15) Blood Urea Nitrogen 57 mg/dL (9-23) Creatinine 2.37 mg/dL (0.550-1.02) Glomerular Filtration Rate Calc 21 mL/min (>90) BUN/Creatinine Ratio 24.1 (10.0-20.0) Serum Glucose 282 mg/dL (74-106) Calcium Level 8.1 mg/dL (8.7-10.4) Total Bilirubin 0.2 mg/dL (0.2-1.0) Aspartate Amino Transferase (AST) 38 U/L (13-40) Alanine Aminotransferase (ALT) 23 U/L (7-40) Alkaline Phosphatase 352 U/L (46-116) Total Protein 5.4 g/dL (5.7-8.2) Albumin 3.2 g/dL (3.2-4.8) Urine Color Yellow (Yellow) Urine Clarity Clear (Clear) Urine pH 5.0 (5.0-9.0) Urine Specific [place] 1.015 (1.001-1.035) Urine Protein Trace (Negative) Urine Ketones Negative (Negative) Urine Blood Negative /uL (Negative) Urine Nitrite Negative (Negative) Urine Bilirubin Negative (Negative) Urine Urobilinogen Normal mg/dL (Negative) Urine Leukocyte Esterase 1+ /uL (Negative) Urine RBC 2 /hpf (0 - 4) Urine Microscopic WBC 4 /HPF (0-5) Urine Squamous Epithelial Cells Few /hpf (<5) Urine Bacteria None seen /hpf (None Seen) Urine Glucose 3+ mg/dL (Normal) Hemoglobin A1c 9.2 % A1C (<5.7) Other Laboratory Tests 04/28/25 03:43 Brief Hx & Hospital Course: 74-year-old female with a known history of diabetes mellitus type 2, hypertension, dyslipidemia who was seen in urgent Care for left elbow cellulitis and high blood sugar found to have hyperkalemia which was suspected to valsartan induced. Patient also has uncontrolled hyperglycemia with a hemoglobin A1c more than9. Patient was started on long-acting insulin Lantus, insulin teaching has been given. Home has home safety evaluation will be arranged patient will be discharged on p.o. antibiotics for left elbow cellulitis as well as insulin Lantus. Condition at Discharge: Stable Final Diagnosis/Problems List 74-year-old female with a known history of diabetes mellitus type 2, hypertension, dyslipidemia who was seen in urgent Care for left elbow cellulitis and high blood sugar found to have 1. Hyperkalemia suspect valsartan induced, resolved 2. Uncontrolled hyperglycemia in the setting of insulin-dependent diabetes mellitus type 2, improving 3. Left elbow cellulitis 4. Insulin-dependent diabetes mellitus type 2 currently hyperglycemic 5. Hypertension 6. Dyslipidemia 7. Acute kidney injury suspected secondary to vasomotor nephropathy Discharge Disposition: Home with Health Services SNF Discharge Will this Physician continue t: No Discharge Instruct/Medications Diet: Cardiac 2g Na,low cholest Diet comment: 1800 ADA diet. Activity: No Restrictions, As Tolerated Follow Up/Referral: Follow up with the PCP in 1-2 weeks Medications: Resume home medications, add insulin Lantus and antibiotics. Scheduled Amlodipine Besylate (Amlodipine Besylate), 1 TAB PO DAILY, (Reported) Cephalexin (Keflex Capsule), 250 MG PO QID Cephalexin Monohydrate (Cephalexin), 1 CAP PO BID Cholestyramine (Questran Powder), 4 GM PO DAILY Doxycycline (Monohydrate) (Doxycycline), 100 MG PO BID Insulin Glargine (Lantus), 15 UNITS SC QAM Insulin Lispro Protamine & Lis (Humalog Mix 75/25 Kwikpen), 10 UNIT SC TID, (Reported) Valsartan (Valsartan), 1 TAB PO DAILY, (Reported) Vancomycin Hcl (Vancomycin Po), 125 MG PO QID Yeast (S. Boulardii)(S. Cerevi (Florastor), 250 MG PO DAILY Scheduled PRN Gabapentin (Gabapentin), 1 CAP PO every night PRN, (Reported) Lactulose (Lactulose), 10 GM PO BID PRN Tramadol Hcl (Tramadol Hcl), 50 MG PO Q6HP PRN Miscellaneous Medications Simvastatin (Simvastatin), 1 TAB PO, (Reported) Durable Medical Equipment Insulin Syringe/Needle U-100 ([facility] Insulin Syringe/), MG XX QAM, (DME) Discharge Statement: "Patient was advised to return to the ER or call 911 if any headaches, dizziness, shortness of breath, chest pain, abdominal pain, bleeding, fevers, or worsening of medical condition. Patient was counseled about treatment plan, medications, possible side effects, patientverbalized understanding. All questions were answered to the best of my ability. This discharge took greater then 30 minutes in planning, reviewing documentation, counseling the patient, and discussing with other team members." ASSESSMENT ASSESSMENT Assessment 74-year-old female with a known history of diabetes mellitus type 2, hypertension, dyslipidemia who was seen in urgent Care for left elbow cellulitis and high blood sugar found to have 1. Hyperkalemia suspect valsartan induced, resolved 2. Uncontrolled hyperglycemia in the setting of insulin-dependent diabetes mellitus type 2, improving 3. Left elbow cellulitis 4. Insulin-dependent diabetes mellitus type 2 currently hyperglycemic 5. Hypertension 6. Dyslipidemia 7. Acute kidney injury suspected secondary to vasomotor nephropathy Date of Service: Apr 29, 2025 Billing Provider: CAIT BOBBY MD Common Visit Codes: NOT BILLABLE CAIT BOBBY MD Apr 29, 2025 13:57
[2025-04-29] MEDS ORDERED: DOXY100C79 PO (14:56)
[2025-04-29] MEDS ORDERED: CEPH500C PO (14:56)
[2025-04-29] MEDS ORDERED: INSLANTI SC (14:56)
[2025-04-29] MEDS ORDERED: INSU-567 XX (14:56)
--- NOTE | 2025-04-29 15:03 | DVHDS2 ---
Discharge Summary Date of Admission Apr 27, 2025 at 16:34 Date of Discharge: Apr 29, 2025 Labs/Diagnostic Data: Laboratory Results Test 04/29/25 11:46 04/28/25 03:43 04/27/25 14:05 04/27/25 13:13 POC Glucose 152 mg/dl (70-106) White Blood Count 5.8 10^3/uL (4.4-10.8) Red Blood Count 2.61 10^6/uL (4.0-5.20) Hemoglobin 7.9 g/dL (12.2-16.2) Hematocrit 23.3 % (36.0-46.0) Mean Corpuscular Volume 89.1 fL (80.0-100.0) Mean Corpuscular Hemoglobin 30.1 pg (28.0-32.0) Mean Corpuscular Hemoglobin Concent 33.8 g/dL (32.0-36.0) Red Cell Distribution Width 12.9 % (11.8-14.3) Platelet Count 224 10^3/uL (140-450) Mean Platelet Volume 7.6 fL (6.9-10.8) Neutrophils (%) (Auto) 67.6 % (37.0-80.0) Lymphocytes (%) (Auto) 18.8 % (10.0-50.0) Monocytes (%) (Auto) 10.8 % (0.0-12.0) Eosinophils (%) (Auto) 1.9 % (0.0-7.0) Basophils (%) (Auto) 0.9 % (0.0-2.0) Neutrophils # (Auto) 3.9 10 ^3/uL (1.6-8.6) Lymphocytes # (Auto) 1.1 10 ^3/uL (0.4-5.4) Monocytes # (Auto) 0.6 10 ^3/uL (0-1.3) Eosinophils # (Auto) 0.1 10 ^3/uL (0-0.8) Basophils # (Auto) 0.1 10 ^3/uL (0-0.2) Nucleated Red Blood Cells 0.0 % Sodium Level 133 mmol/L (136-145) Potassium Level 4.9 mmol/L (3.5-5.1) Chloride Level 100 mmol/L (98-107) Carbon Dioxide Level 22 mmol/L (20-31) Anion Gap 11 (5-15) Blood Urea Nitrogen 57 mg/dL (9-23) Creatinine 2.37 mg/dL (0.550-1.02) Glomerular Filtration Rate Calc 21 mL/min (>90) BUN/Creatinine Ratio 24.1 (10.0-20.0) Serum Glucose 282 mg/dL (74-106) Calcium Level 8.1 mg/dL (8.7-10.4) Total Bilirubin 0.2 mg/dL (0.2-1.0) Aspartate Amino Transferase (AST) 38 U/L (13-40) Alanine Aminotransferase (ALT) 23 U/L (7-40) Alkaline Phosphatase 352 U/L (46-116) Total Protein 5.4 g/dL (5.7-8.2) Albumin 3.2 g/dL (3.2-4.8) Urine Color Yellow (Yellow) Urine Clarity Clear (Clear) Urine pH 5.0 (5.0-9.0) Urine Specific [place] 1.015 (1.001-1.035) Urine Protein Trace (Negative) Urine Ketones Negative (Negative) Urine Blood Negative /uL (Negative) Urine Nitrite Negative (Negative) Urine Bilirubin Negative (Negative) Urine Urobilinogen Normal mg/dL (Negative) Urine Leukocyte Esterase 1+ /uL (Negative) Urine RBC 2 /hpf (0 - 4) Urine Microscopic WBC 4 /HPF (0-5) Urine Squamous Epithelial Cells Few /hpf (<5) Urine Bacteria None seen /hpf (None Seen) Urine Glucose 3+ mg/dL (Normal) Hemoglobin A1c 9.2 % A1C (<5.7) Other Laboratory Tests 04/28/25 03:43 Brief Hx & Hospital Course: 74-year-old female with a known history of diabetes mellitus type 2, hypertension, dyslipidemia who was seen in urgent Care for left elbow cellulitis and high blood sugar found to have 1. Hyperkalemia suspect valsartan induced, resolved 2. Uncontrolled hyperglycemia in the setting of insulin-dependent diabetes mellitus type 2, improving 3. Left elbow cellulitis 4. Insulin-dependent diabetes mellitus type 2 currently hyperglycemic 5. Hypertension 6. Dyslipidemia 7. Acute kidney injury suspected secondary to vasomotor nephropathy Condition at Discharge: Stable Final Diagnosis/Problems List 74-year-old female with a known history of diabetes mellitus type 2, hypertension, dyslipidemia who was seen in urgent Care for left elbow cellulitis and high blood sugar found to have 1. Hyperkalemia suspect valsartan induced, resolved 2. Uncontrolled hyperglycemia in the setting of insulin-dependent diabetes mellitus type 2, improving 3. Left elbow cellulitis 4. Insulin-dependent diabetes mellitus type 2 currently hyperglycemic 5. Hypertension 6. Dyslipidemia 7. Acute kidney injury suspected secondary to vasomotor nephropathy Discharge Disposition: Home with Health Services SNF Discharge Will this Physician continue t: No Discharge Instruct/Medications Diet: Cardiac 2g Na,low cholest Diet comment: 1800 ADA diet. Activity: No Restrictions, As Tolerated Follow Up/Referral: Follow up with the PCP in 1-2 weeks Medications: Resume home medications, add insulin Lantus and antibiotics. Scheduled Amlodipine Besylate (Amlodipine Besylate), 1 TAB PO DAILY, (Reported) Cephalexin (Keflex Capsule), 250 MG PO QID Cephalexin Monohydrate (Cephalexin), 1 CAP PO BID Cholestyramine (Questran Powder), 4 GM PO DAILY Doxycycline (Monohydrate) (Doxycycline), 100 MG PO BID Insulin Glargine (Lantus), 15 UNITS SC QAM Insulin Lispro Protamine & Lis (Humalog Mix 75/25 Kwikpen), 10 UNIT SC TID, (Reported) Valsartan (Valsartan), 1 TAB PO DAILY, (Reported) Vancomycin Hcl (Vancomycin Po), 125 MG PO QID Yeast (S. Boulardii)(S. Cerevi (Florastor), 250 MG PO DAILY Scheduled PRN Gabapentin (Gabapentin), 1 CAP PO every night PRN, (Reported) Lactulose (Lactulose), 10 GM PO BID PRN Tramadol Hcl (Tramadol Hcl), 50 MG PO Q6HP PRN Miscellaneous Medications Simvastatin (Simvastatin), 1 TAB PO, (Reported) Durable Medical Equipment Insulin Syringe/Needle U-100 (Advocate Insulin Syringe/), MG XX QAM, (DME) Discharge Statement: "Patient was advised to return to the ER or call 911 if any headaches, dizziness, shortness of breath, chest pain, abdominal pain, bleeding, fevers, or worsening of medical condition. Patient was counseled about treatment plan, medications, possible side effects, patientverbalized understanding. All questions were answered to the best of my ability. This discharge took greater then 30 minutes in planning, reviewing documentation, counseling the patient, and discussing with other team members." ASSESSMENT ASSESSMENT Assessment 74-year-old female with a known history of diabetes mellitus type 2, hypertension, dyslipidemia who was seen in urgent Care for left elbow cellulitis and high blood sugar found to have 1. Hyperkalemia suspect valsartan induced, resolved 2. Uncontrolled hyperglycemia in the setting of insulin-dependent diabetes mellitus type 2, improving 3. Left elbow cellulitis 4. Insulin-dependent diabetes mellitus type 2 currently hyperglycemic 5. Hypertension 6. Dyslipidemia 7. Acute kidney injury suspected secondary to vasomotor nephropathy CAIT BOBBY MD Apr 29, 2025 15:03
[2025-04-29 15:05] LABS: Hematocrit 28.5 % (36.0-46.0); Hemoglobin 9.4 g/dL (12.2-16.2); Mean Corpuscular Hemoglobin 29.5 pg (28.0-32.0); Mean Corpuscular Volume 89.0 fL (80.0-100.0); Nucleated Red Blood Cells % 0.1 %
[2025-04-29 15:15] LABS: Chloride 104 mmol/L (98-107); Potassium 5.0 mmol/L (3.5-5.1); Sodium 140 mmol/L (136-145)
[2025-04-29 15:16] LABS: Anion Gap 11 (5-15); Carbon Dioxide 25 mmol/L (20-31)
[2025-04-29 15:18] LABS: Calcium 8.3 mg/dL (8.7-10.4)
[2025-04-29 15:21] LABS: BUN/Creatinine Ratio 31.9 (10.0-20.0); Glucose 95 mg/dL (74-106)
[2025-04-29 15:26] LABS: Blood Urea Nitrogen 51 mg/dL (9-23)
== END 2025-04-29 18:02 | disposition home health service (06) | DRG 640 ==
LOC: ER 12:48 → OVERFLOW 16:34 → TELE-WESTW 04-28 15:55
PROVIDERS: ADMIT Internal Medicine; ATTEND Internal Medicine
DX: E87.5 Hyperkalemia (principal); N17.0 Acute kidney failure with tubular necrosis; L03.114 Cellulitis of left upper limb; E11.65 Type 2 diabetes mellitus with hyperglycemia; E78.5 Hyperlipidemia, unspecified; M10.9 Gout, unspecified; I10 Essential (primary) hypertension; Z96.659 Presence of unspecified artificial knee joint; Z88.1 Allergy status to other antibiotic agents; Z79.2 Long term (current) use of antibiotics; Z79.4 Long term (current) use of insulin; Z79.899 Other long term (current) drug therapy; Z90.710 Acquired absence of both cervix and uterus; Z83.3 Family history of diabetes mellitus; Z87.442 Personal history of urinary calculi
CPT/HCPCS: 36415; 73070; 80048; 80053; 81001; 82962; 83036; 85025; 87081; 94640; 96365; 96375; 97110; 97116; 97163; G0378; J1815; J2405

== ENCOUNTER 2025-07-18 21:18 | Emergency (ER) | payer MEDICARE, OTHER ==
[~2025-07-18] VITALS: Ht 180.3 cm; Wt 59.0 kg
[~2025-07-18 21:18] MED LIST changes: -CEPH250C PO; +CEPH500C PO; +DOXY100C79 PO; +INSLANTI SC; +INSU-567 XX; -VALS1TAB59 PO; -VANC125PO PO
[2025-07-18 21:24] VITALS: BP 136/74; RESP 18; TEMP 97.6; O2SAT 98
[2025-07-18 21:37] VITALS: PULSE 77
--- NOTE | 2025-07-18 21:38 | ED.PDOC ---
History of Present Illness HPI Comments 74-year-old female who came to ER for abdominal pain. Patient states she has been having epigastric abdominal pain cramping for over a month. Patient was seen yesterday by GI specialist, diagnostics done, and claims that nothing is wrong with her. Patient is here complaining of epigastric pain, with the nola rrhea. She denies any nausea or vomiting REVIEW OF SYSTEMS: General: No fever, no chills, or fatigue HEENT: No sore throat, no earache, no congestion, no neck pain. Cardiac: No chest pain. No palpitations. Lungs: No shortness of breath, no cough. GI: No nausea, no vomiting, (+) diarrhea, no constipation, (+) abdominal pain : No dysuria, frequency, or urgency. No hematuria. Musculoskeletal: No joint pain , no joint swelling, no extremity edema. Skin: No rash, no itching. Neuro: No headache, no dizziness, no weakness EXAM: General: Awake, alert and oriented. No acute distress. Skin: Skin in warm, dry and intact. Appropriate color for ethnicity. HEENT: The head is normocephalic and atraumatic. Conjunctivae are clear without exudates or hemorrhage. Sclera is non-icteric. EOM are intact. No signs of nystagmus. Eyelids are normal in appearance without swelling or lesions. Oral mucosa is pink and moist Neck: The neck is supple with normal range of motion. No JVD. Cardiac: Heart rate and rhythm are normal. No murmurs, gallops, or rubs are auscultated. Respiratory: No signs of respiratory distress. Lung sounds are clear in all lobes bilaterally without rales, rhonchi, or wheezes. Abdominal: Abdomen is soft, non-tender without distention. Bowel sounds are present and normoactive in all four quadrants. Extremities: Upper and lower extremities are atraumatic in appearance without deformity or edema. Neurological: The patient is awake, alert and oriented to person, place, and time with normal speech. Speech is clear. There is no facial asymmetry. Psychiatric: Appropriate mood and affect. Good judgement and insight Chief Complaint: Abdominal Pain Time Seen by MD: 21:37 Primary Care Provider: DOES NOT KNOW Reviewed Notes: Nurses Notes, Window Installer Notes Allergies: Coded Allergies: Azithromycin (Verified Allergy, Unknown, 12/08/22) Lisinopril (Verified Allergy, Unknown, 12/08/22) Sulfa Antibiotics (Verified Allergy, Unknown, 12/08/22) Home Meds Active Scripts Insulin Syringe/Needle U-100 (ADVOCATE INSULIN SYRINGE/) 0.5 Mg/31 G Mis, MG XX QAM, #30 Prov:CAIT BOBBY MD 04/29/25 Doxycycline (Monohydrate) (Doxycycline) 100 Mg Cap, 100 MG PO BID for 7 Days, #14 CAP Prov:CAIT BOBBY MD 04/29/25 Cephalexin Monohydrate (Cephalexin) 500 Mg Cap, 1 CAP PO BID for 7 Days, #20 CAP Prov:CAIT BOBBY MD 04/29/25 Insulin Glargine (Lantus) 100 Unit/Ml Inj, 15 UNITS SC QAM for 30 Days, #30 INJ Prov:CAIT BOBBY MD 04/29/25 Cholestyramine (QUESTRAN POWDER) 4 Gm Pw, 4 GM PO DAILY, #40 POW Prov:MILDRED DÍAZ MD 06/09/24 Yeast (S. Boulardii)(S. Cerevi (Florastor) 250 Mg Cap, 250 MG PO DAILY, #30 CAP Prov:MILDRED DÍAZ MD 06/09/24 Lactulose (Lactulose) 10 Gm/15 Ml Syl[place], 10 GM PO BID PRN, #100 ML Prov:ALFREDO IRIZARRY INSTRUCTIONAL SUPPORT ASSISTANT 05/10/23 Tramadol Hcl (Tramadol Hcl) 50 Mg Tab, 50 MG PO Q6HP PRN for 5 Days, #20 TAB Prov:ANGELO VILLATORO MD 12/08/22 Reported Medications Amlodipine Besylate (Amlodipine Besylate) 5 Mg Tab, 1 TAB PO DAILY 06/03/24 Insulin Lispro Protamine & Lis (Humalog Mix 75/25 Kwikpen) 75 Mg/25 Kwp Inj, 10 UNIT SC TID 06/03/24 Gabapentin (Gabapentin) 300 Mg Cap, 1 CAP PO every night PRN 06/02/24 Simvastatin (Simvastatin) 20 Mg Tab, 1 TAB PO 06/02/24 Information Source: Patient, Emergency Med Personnel Past Medical History PAST MEDICAL HISTORY: Arthritis, DM, Gout, High Lipids, HTN, Kidney Stones Surgical History: Hernia Repair, Hysterectomy, Tonsillectomy DEV OPS ENGINEER History: Denies all DEV OPS ENGINEER Hx Family History Family History: Family hx of DM, Family hx of Cancer, Family hx of heart myriam Social History Smoker: Non-Smoker Alcohol: Denies ETOH Use Drugs: Denies Drug Use Lives In: Home Was a procedure done? Was a procedure done?: No EKG EKG : Pulse Rate (adult): 77 Cardiac Rhythm: NSR Differential Dx Considerations may include: Gastritis, urinary tract infection, gallstones X-Ray, Labs, Meds, VS Vital Signs Date Time Temp Pulse Resp B/P (MAP) Pulse Ox O2 Delivery O2 Flow Rate FiO2 07/18/25 21:37 77 07/18/25 21:26 77 07/18/25 21:24 97.6 78 18 136/74 98 97.6 Lab Test 07/18/25 21:44 Range/Units White Blood Count 10.1 4.4-10.8 10^3/uL Red Blood Count 3.95 L 4.0-5.20 10^6/uL Hemoglobin 11.9 L 12.2-16.2 g/dL Hematocrit 35.6 L 36.0-46.0 % Mean Corpuscular Volume 90.2 80.0-100.0 fL Mean Corpuscular Hemoglobin 30.2 28.0-32.0 pg Mean Corpuscular Hemoglobin Concent 33.5 32.0-36.0 g/dL Red Cell Distribution Width 16.3 H 11.8-14.3 % Platelet Count 271 140-450 10^3/uL Mean Platelet Volume 7.9 6.9-10.8 fL Neutrophils (%) (Auto) 66.9 37.0-80.0 % Lymphocytes (%) (Auto) 22.3 10.0-50.0 % Monocytes (%) (Auto) 7.2 0.0-12.0 % Eosinophils (%) (Auto) 2.5 0.0-7.0 % Basophils (%) (Auto) 1.1 0.0-2.0 % Neutrophils # (Auto) 6.8 1.6-8.6 10 ^3/uL Lymphocytes # (Auto) 2.3 0.4-5.4 10 ^3/uL Monocytes # (Auto) 0.7 0-1.3 10 ^3/uL Eosinophils # (Auto) 0.3 0-0.8 10 ^3/uL Basophils # (Auto) 0.1 0-0.2 10 ^3/uL Nucleated Red Blood Cells 0.0 % Urine Color Light-yellow Yellow Urine Clarity Clear Clear Urine pH 5.0 5.0-9.0 Urine Specific [place] 1.013 1.001-1.035 Urine Protein Trace H Negative Urine Ketones Negative Negative Urine Blood Negative Negative /uL Urine Nitrite Negative Negative Urine Bilirubin Negative Negative Urine Urobilinogen Normal Negative mg/dL Urine Leukocyte Esterase Negative Negative /uL Urine RBC 1 0 - 4 /hpf Urine Microscopic WBC 1 0-5 /HPF Urine Squamous Epithelial Cells Few <5 /hpf Urine Bacteria None seen None Seen /hpf Urine Glucose Normal Normal mg/dL Sodium Level 140 136-145 mmol/L Potassium Level 4.8 3.5-5.1 mmol/L Chloride Level 108 H 98-107 mmol/L Carbon Dioxide Level 21 20-31 mmol/L Anion Gap 11 5-15 Blood Urea Nitrogen 37 H 9-23 mg/dL Creatinine 1.42 H 0.550-1.02 mg/dL Glomerular Filtration Rate Calc 39 >90 mL/min BUN/Creatinine Ratio 26.1 H 10.0-20.0 Serum Glucose 116 H 74-106 mg/dL Calcium Level 10.1 8.7-10.4 mg/dL Total Bilirubin 0.2 0.2-1.0 mg/dL Aspartate Amino Transferase (AST) 58 H 13-40 U/L Alanine Aminotransferase (ALT) 34 7-40 U/L Alkaline Phosphatase 150 H 46-116 U/L Total Protein 7.3 5.7-8.2 g/dL Albumin 4.7 3.2-4.8 g/dL Time of 1ST Reevaluation: 21:32 Reevaluation 1ST: Unchanged Patient Education/Counseling: Need For Follow Up Family Education/Counseling: No Family Present SEPSIS Sepsis Screen Physician Orders Electrocardigram (07/18/25 21:29) Vital Signs Date Time Temp Pulse Resp B/P (MAP) Pulse Ox O2 Delivery O2 Flow Rate FiO2 07/18/25 21:37 77 07/18/25 21:26 77 07/18/25 21:24 97.6 78 18 136/74 98 97.6 Laboratory Tests Test 07/18/25 21:44 White Blood Count 10.1 10^3/uL (4.4-10.8) Departure 1 Departure Time of Disposition: 23:10 Impression: Primary Impression: Chronic abdominal pain Disposition: HOME / SELF CARE / HOMELESS Condition: Stable Additional Instructions: ED DISCHARGE INSTRUCTIONS Instructions: Please read all instructions provided in this packet carefully. Although you have been discharged from the Emergency Department, this does not mean that you have a "clean bill of health". No definitive diagnosis for your symptoms has been made today. It is possible that you are in the process of developing a serious illness. This is why you must return to the ED without fail if any new or worsening symptoms (especially if your symptoms include chest pain, trouble breathing, abdominal pain, fever, headache, confusion, trouble seeing, or trouble walking) It is also very important that you see a primary care provider (PCP) within the next 3-5 days to follow up. If you are unable to get an appointment, return to the ED for re-evaluation. Abdominal Pain: Care Instructions Overview Abdominal pain has many possible causes. Some aren't serious and get better on their own in a few days. Others need more testing and treatment. If your pain continues or gets worse, you need to be rechecked and may need more tests to find out what is wrong. You may need surgery to correct the problem. Don't ignore new symptoms, such as fever, nausea and vomiting, urination problems, pain that gets worse, and dizziness. These may be signs of a more serious problem. If you are not getting better, you may need more tests or treatment. The doctor has checked you carefully, but problems can develop later. If you notice any problems or new symptoms, get medical treatment right away. Follow-up care is a tanner part of your treatment and safety. Be sure to make and go to all appointments, and call your doctor if you are having problems. It's also a good idea to know your test results and keep a list of the medicines you take. How can you care for yourself at home? Rest until you feel better. To prevent dehydration, drink plenty of fluids. Choose water and other clear liquids until you feel better. If you have kidney, heart, or liver disease and have to limit fluids, talk with your doctor before you increase the amount of fluids you drink. When you feel like eating, start with small amounts. Do not have alcohol, caffeine, or spicy, hot, or high-fat foods for a day or two. Avoid anti-inflammatory medicines such as aspirin, ibuprofen (Advil, Motrin), an d naproxen (Aleve). These can cause stomach upset. Talk to your doctor if you take daily aspirin for another health problem. When should you call for help? Call 911 anytime you think you may need emergency care. For example, call if: You passed out (lost consciousness). You pass maroon or very bloody stools. You vomit blood or what looks like coffee grounds. You have severe belly pain. Call your doctor now or seek immediate medical care if: Your pain gets worse, especially if it becomes focused in one area of your belly. You have a new or higher fever. Your stools are black and look like tar, or they have streaks of blood. You have unexpected vaginal bleeding. You have symptoms of a urinary tract infection. These may include: Pain when you urinate. Urinating more often than usual. Blood in your urine. You are dizzy or lightheaded, or you feel like you may faint. Watch closely for changes in your health, and be sure to contact your doctor if: You are not getting better as expected. Credits for Abdominal Pain: Care Instructions Current as of: May 18, 2023 Author: [employer] Staff Clinical Review Board All [employer] education is reviewed by a team that includes physicians, nurses, advanced practitioners, registered dieticians, and other healthcare professionals. Critical Care Note Critical Care Time?: No Stability Stability form required: No Heart Score Heart Score: Heart Score Response (Comments) Value History N/A 0 EKG N/A 0 Age N/A 0 Risk Factors N/A 0 Troponin N/A 0 Total 0 I personally scribed for LONDON LIPSCOMB MD ([email or web address]) on 07/18/25 at 21:37. Electronically submitted by Daniel Boone ([email or web address]). LONDON LIPSCOMB MD Jul 18, 2025 21:37
[2025-07-18 21:52] LABS: Hematocrit 35.6 % (36.0-46.0); Hemoglobin 11.9 g/dL (12.2-16.2); Mean Corpuscular Hemoglobin 30.2 pg (28.0-32.0); Mean Corpuscular Volume 90.2 fL (80.0-100.0); Nucleated Red Blood Cells % 0.0 %
[2025-07-18 21:56] LABS: Urine Protein, UAD TRACE (Negative)
[2025-07-18 22:10] LABS: Alanine Aminotransferase 34 U/L (7-40); Albumin 4.7 g/dL (3.2-4.8); Anion Gap 11 (5-15); BUN/Creatinine Ratio 26.1 (10.0-20.0); Calcium 10.1 mg/dL (8.7-10.4); Carbon Dioxide 21 mmol/L (20-31); Potassium 4.8 mmol/L (3.5-5.1); Sodium 140 mmol/L (136-145); Total Protein 7.3 g/dL (5.7-8.2)
[2025-07-18 22:12] LABS: Alkaline Phosphatase 150 U/L (46-116); Bilirubin, Total 0.2 mg/dL (0.2-1.0); Blood Urea Nitrogen 37 mg/dL (9-23); Chloride 108 mmol/L (98-107); Glucose 116 mg/dL (74-106)
[2025-07-19] MEDS ORDERED: ACETAMINOPHEN 325 MG TAB PO ONE (01:00)
--- NOTE | 2025-07-19 06:54 | ECG ---
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
== END 2025-07-19 01:19 | disposition home or self-care (01) ==
LOC: ER 21:18 → EDBD 21:18 → ER 07-19 01:19
DX: G89.29 Other chronic pain (principal); R10.13 Epigastric pain; I10 Essential (primary) hypertension; E11.9 Type 2 diabetes mellitus without complications; Z88.1 Allergy status to other antibiotic agents; Z88.2 Allergy status to sulfonamides; Z88.8 Allergy status to other drugs, medicaments and biological substances; Z90.710 Acquired absence of both cervix and uterus; Z98.890 Other specified postprocedural states
CPT/HCPCS: 36415; 80053; 81001; 85025; 93005